=== PATIENT | female | born 1945 | race Caucasian/White ===

== ENCOUNTER 2018-04-28 20:45 | Inpatient (IN) ==
[2018-04-28] MEDS ORDERED: Famotidine PF Inj 20 MG/2 ML Vial IV.PUSH ONE (21:29)
[2018-04-28] MEDS ORDERED: Sod Chloride 0.9% Inj 1,000 ML IV.SIG ONE (21:29)
--- NOTE | 2018-04-28 21:29 | ED ---
HPI General Chief Complaint: Abdominal Pain Stated Complaint: n/v/d [id number] Time Seen by Provider: 04/28/18 21:13 Source: patient Mode of arrival: ambulatory Limitations: no limitations History of Present Illness HPI narrative: Patient had a Reclast infusion 10 days ago after that she developed severe eye inflammatory reaction and was put on Solu-Medrol steroids then she developed diarrhea she was on Flagyl p.o. 500 3 times daily for 7 days a C. difficile culture was sent and came back negative her doctor renewed this Flagyl today and she now developed severe abdominal pain diarrhea continues with lower abdominal cramping and now she is having vomiting and nausea as well denies black stool denies fever the request was for osteoporosis patient feels weak dehydrated crampy intermittent abdominal pain relieved by diarrhea temporarily feels weak and exhausted from excessive diarrhea p.o. they have been trying to replace her fluids daughter is been giving her Pedialyte p.o. which she is tolerating however today she developed vomiting. And her symptoms continue MD complaint: abdominal pain Onset (ago): week(s) (2) Pain Consistency: constant Location: diffuse, LLQ, RLQ and suprapubic Severity: severe Quality: cramping Relieving factors: bowel movement Exacerbating factors: nothing Context: other (clastic infusion for osteoporosis) Associated symptoms: nausea, vomiting and diarrhea Related Data Home Medications Medication Instructions Recorded Confirmed apixaban [Eliquis] 2.5 mg PO BID 04/28/18 04/28/18 enalapril maleate 10 mg PO BID 04/28/18 04/28/18 levothyroxine 25 mcg PO DAILY 04/28/18 04/28/18 metronidazole [Flagyl] 500 mg PO QID 04/28/18 04/28/18 rosuvastatin [Crestor] 20 mg PO DAILY 04/28/18 04/28/18 sotalol [Betapace] 80 mg PO Q12H 04/28/18 04/28/18 Allergies Allergy/AdvReac Type Severity Reaction Status Date / Time cephalexin [From Keflex] Allergy Rash Verified 04/28/18 21:02 codeine Allergy Abdominal Verified 04/28/18 21:02 Pain mannitol [From Reclast] Allergy Nausea/Vomi Verified 04/28/18 21:02 ting meperidine [From Demerol] Allergy Abdominal Verified 04/28/18 21:02 Pain water for injection,sterile Allergy Nausea/Vomi Verified 04/28/18 21:02 [From Reclast] ting zoledronic acid Allergy Nausea/Vomi Verified 04/28/18 21:02 [From Reclast] ting Review of Systems Except as stated in HPI: all other systems reviewed are negative [facility] Medical History Medical History H/O cardiac pacemaker (Acute) H/O: hypertension (Acute) H/O: hypothyroidism (Acute) Social History Social History Substance History: No History of Abuse Smoking Status: Never smoker How Often Do You Have a Drink Containing Alcohol: Never Recent Travel in [facility] within the Last 8 Weeks: No Recent Out of Country Travel within the Last 8 Weeks: No Immunization History Tetanus Immunization: <5 Years Hx Influenza Vaccine This Season: No Exam Narrative Exam Narrative: GENERAL: laying flat in stretcher appear listless but Awake AOX3 SKIN: Warm and dry. HEAD: Atraumatic. Normocephalic. EYES: Pupils equal and round. No scleral icterus. No injection or drainage. ENT: No nasal bleeding or discharge. Mucous membranes pink and moist. NECK: Trachea midline. No JVD. CARDIOVASCULAR: Regular rate and rhythm. RESPIRATORY: No accessory muscle use. Clear to auscultation. Breath sounds equal bilaterally. GASTROINTESTINAL: Abdomen diffuse tenderness mostly lower area colon area No splenic nor hepatic margins palpable. MUSCULOSKELETAL: Extremities without clubbing, cyanosis, or edema. No obvious deformities. NEUROLOGICAL: Awake and alert. No obvious cranial nerve deficits. Motor grossly within normal limits. Five out of 5 muscle strength in the arms and legs. Normal speech. PSYCHIATRIC: Appropriate mood and affect; insight and judgment normal. Course Initial Documented Vital Signs Temperature 98.5 F 04/28/18 20:51 Pulse Rate 80 04/28/18 20:51 Respiratory Rate 18 04/28/18 20:51 Blood Pressure 112/57 L 04/28/18 20:51 Pulse Oximetry 98 04/28/18 20:51 Last Documented Vital Signs Temperature 98.5 F 04/28/18 20:51 Pulse Rate 78 04/28/18 23:35 Respiratory Rate 16 04/28/18 23:35 Blood Pressure 129/60 04/28/18 23:35 Pulse Oximetry 97 04/28/18 23:35 Medical Decision Making MDM Narrative Medical decision making narrative: IV fluid zofran PEPCID IV NS and labs eval possible admit for intractable diarrhea will also sent c-diff assay for antigent. Labs have returned her sodium is 121 hyponatremic will need to admit her I gave her 1 L bolus of normal saline and now running her 250 an hour of normal saline to rehydrate her and admit her for sodium hyponatremia secondary to diarrhea Differential Diagnosis Differential Diagnosis: pt has abdo pain and diarrhea question of flagyl reaction Reclast reaction C-diff viral ulcerative colitis other Lab Data Result diagrams: 04/28/18 21:42 04/28/18 21:42 Lab Results 04/28/18 04/28/18 Range/Units 21:42 21:42 CBC w Diff Slide review pending WBC 16.6 H (4.0-11.0) th/mm3 RBC 4.17 (4.00-5.30) mil/mm3 Hgb 12.0 (11.6-15.3) gm/dL Hct 35.5 (35.0-46.0) % MCV 85.1 (80.0-100.0) fL MCH 28.8 (27.0-34.0) pg MCHC 33.8 (32.0-36.0) % RDW 13.6 (11.6-17.2) % Plt Count 354 (150-450) th/mm3 MPV 9.0 (7.0-11.0) fL Neut % (Auto) 83.8 H (16.0-70.0) % Lymph % (Auto) 4.2 L (9.0-44.0) % [place] % (Auto) 9.6 H (0.0-8.0) % Eos % (Auto) 2.1 (0.0-4.0) % Baso % (Auto) 0.3 (0.0-2.0) % Neut # (Auto) 14.0 H (1.8-7.7) th/mm3 Lymph # (Auto) 0.7 L (1.0-4.8) th/mm3 [place] # (Auto) 1.6 H (0.0-0.9) th/mm3 Eos # (Auto) 0.3 (0.0-0.4) th/mm3 Baso # (Auto) 0.0 (0.0-0.2) th/mm3 WBC Differential . Diff Scan Auto diff confirmed Differential Comment . Sodium 121 L* (136-145) meq/L Potassium 4.1 (3.5-5.1) meq/L Chloride 88 L (98-107) meq/L Carbon Dioxide 23.6 (21.0-32.0) meq/L Anion Gap 9 (5-15) meq/L BUN 8 (7-18) mg/dL Creatinine 0.63 (0.50-1.00) mg/dL Estimated GFR Greater than 89 (>89) mL/min Random Glucose 113 H (74-106) mg/dL Calcium 8.2 L (8.5-10.1) mg/dL Total Bilirubin 0.5 (0.2-1.0) mg/dL AST 18 (15-37) U/L ALT 17 (10-53) U/L Alkaline Phosphatase 96 (45-117) U/L Total Protein 6.8 (6.4-8.2) g/dL Albumin 3.0 L (3.4-5.0) g/dL Lipase 545 H (73-393) U/L Discharge Plan Discharge Disposition Patient Disposition: 30 Still Patient Discharge Details Diagnosis: Acute hyponatremia Physicians Team ED Provider: Ruperto Fofana Primary Care Provider: Tulio De La Paz Attending Provider: Tulio De La Paz Status ED Status: Admitted Observation Patient
[2018-04-28 22:14] LABS: Baso % (Auto) 0.3 % (0.0-2.0); Eos # (Auto) 0.3 th/mm3 (0.0-0.4); Eos % (Auto) 2.1 % (0.0-4.0); Hematocrit 35.5 % (35.0-46.0); Lymph # (Auto) 0.7 th/mm3 (1.0-4.8); Lymph % (Auto) 4.2 % (9.0-44.0); Mean Corpuscular HGB Conc 33.8 % (32.0-36.0); Mean Corpuscular Hemoglobin 28.8 pg (27.0-34.0); Mean Corpuscular Volume 85.1 fL (80.0-100.0); Mono # (Auto) 1.6 th/mm3 (0.0-0.9); Mono % (Auto) 9.6 % (0.0-8.0); Neut % (Auto) 83.8 % (16.0-70.0); Platelet Count 354 th/mm3 (150-450); Red Blood Count 4.17 mil/mm3 (4.00-5.30); Red Cell Distribution Width 13.6 % (11.6-17.2); White Blood Count 16.6 th/mm3 (4.0-11.0)
[2018-04-28 22:21] LABS: Alanine Aminotransferase 17 U/L (10-53); Alkaline Phosphatase 96 U/L (45-117); Anion Gap 9 meq/L (5-15); Aspartate Aminotransferase 18 U/L (15-37); Blood Urea Nitrogen 8 mg/dL (7-18); Calcium 8.2 mg/dL (8.5-10.1); Carbon Dioxide 23.6 meq/L (21.0-32.0); Chloride 88 meq/L (98-107); Glomerular Filtration Rate Greater Than 89 mL/min (>89); Glucose,Random 113 mg/dL (74-106); Lipase 545 U/L (73-393); Potassium 4.1 meq/L (3.5-5.1); Total Protein 6.8 g/dL (6.4-8.2)
[2018-04-28 22:23] LABS: Sodium 121 meq/L (136-145)
[2018-04-28] MEDS: Sod Chloride 0.9% Inj 1,000 ML IV.CONT SCH (22:40)
[2018-04-29 00:38] LABS: Bilirubin,Urine Negative (Negative); Clarity,Urine Clear (Clear); Color,Urine Yellow (Yellw/Straw); Glucose,Urine (UA) Negative (Negative); Leukocyte Esterase,Urine Trace (Negative); Nitrite,Urine Negative (Negative); Specific Gravity,Urine Less/Equal 1.005 (1.002-1.035); Urobilinogen,Urine 0.2 mg/dL (Less than 2)
[2018-04-29 00:48] LABS: RBC,Urine 0-3 /hpf (0-3); Squamous Epithelial Cell,Urine 0-5 /hpf (0-5)
[2018-04-29] MEDS: Acetaminophen 325 MG Tablet PO PRN ×2 (05:21→08:58)
[2018-04-29] MEDS: Sod Chloride 0.9% Inj 1,000 ML IV.CONT SCH ×3 (06:05→19:27)
[2018-04-29] MEDS ORDERED: Sod Chloride 0.9% Inj 1,000 ML IV.CONT SCH (06:30)
--- NOTE | 2018-04-29 06:34 | XR ---
EXAM DATE: 04/29/2018 6:30 AM EDT AGE/SEX: 73 years / Female INDICATIONS: . Cough for 1 week CLINICAL DATA: This is the patient's initial encounter. Patient reports that signs and symptoms have been present for 1 week and indicates a pain score of 0/10. MEDICAL/SURGICAL HISTORY: None. CABG. Mitral valve repair. Pacemaker. COMPARISON: POI, CT CHEST W/O CONTRAST, 10/25/2017. . FINDINGS: No significant focal pleural or parenchymal abnormality. Dual-lead pacemaker in place with postsurgic al features of prior median sternotomy and aortic valve replacement. Cardiac silhouette is in the upp er limits of normal for size. Bony thorax is intact. CONCLUSION: 1. No acute cardiopulmonary disease. Electronically signed by: Dallin Jason MD 04/29/2018 6:33 AM EDT
--- NOTE | 2018-04-29 07:09 | CT ---
EXAM DATE: 04/29/2018 6:59 AM EDT AGE/SEX: 73 years / Female INDICATIONS: Hyponatremia, intractable diarrhea, abdominal pain. CLINICAL DATA: This is the patient's initial encounter. Patient reports that signs and symptoms have been present for 1 day and indicates a pain score of 0/10. MEDICAL/SURGICAL HISTORY: . Pacemaker. Appendectomy. CABG. Tonsillectomy, adenoidectomy, hys terectomy. ORAL CONTRAST: No oral contrast ingested. RADIATION DOSE: 6.40 CTDI (mGy) COMPARISON: No prior exams available for comparison. TECHNIQUE: Multiple contiguous axial images were obtained through the abdomen and pelvis following b olus infusion of 80 ml Omnipaque 350 (iohexol) nonionic water-soluble contrast as a single exam dos e. No oral contrast ingested. Using automated exposure control and adjustment of the mA and/or kV ac cording to patient size, radiation dose was kept as low as reasonably achievable to obtain optimal di agnostic quality images. DICOM format image data is available electronically for review and comparis on. FINDINGS: Abdomen CT: The liver, spleen, pancreas, kidneys, adrenals are unremarkable. There is no evidence for any appreci able pathological adenopathy, free fluid, or bowel obstruction. There are a couple of tiny subcentim eter retroperitoneal lymph nodes most likely benign with scattered shotty mesenteric lymph nodes also most likely benign the largest one measures almost 1 cm in right lower quadrant. Pelvic CT: There is no evidence for mass, abscess formation, or any significant adenopathy within the pelvis. Th ere is a single gas bubble inside the bladder of uncertain etiology. CONCLUSION: Gas bubble inside the bladder may be iatrogenic and of uncertain etiology, otherwise unre markable. Electronically signed by: Ezekiel Vallejo MD 04/29/2018 7:07 AM EDT
[2018-04-29 07:57] LABS: Baso % (Auto) 0.1 % (0.0-2.0); Eos # (Auto) 0.3 th/mm3 (0.0-0.4); Eos % (Auto) 1.6 % (0.0-4.0); Hematocrit 32.5 % (35.0-46.0); Hemoglobin 10.6 gm/dL (11.6-15.3); Lymph # (Auto) 0.7 th/mm3 (1.0-4.8); Lymph % (Auto) 4.3 % (9.0-44.0); Mean Corpuscular HGB Conc 32.5 % (32.0-36.0); Mean Corpuscular Hemoglobin 28.6 pg (27.0-34.0); Mean Corpuscular Volume 87.8 fL (80.0-100.0); Mean Platelet Volume 9.1 fL (7.0-11.0); Mono # (Auto) 1.3 th/mm3 (0.0-0.9); Mono % (Auto) 8.5 % (0.0-8.0); Neut # (Auto) 13.6 th/mm3 (1.8-7.7); Neut % (Auto) 85.5 % (16.0-70.0); Platelet Count 313 th/mm3 (150-450); Red Cell Distribution Width 13.5 % (11.6-17.2); White Blood Count 15.9 th/mm3 (4.0-11.0)
[2018-04-29 08:22] LABS: Anion Gap 11 meq/L (5-15); Blood Urea Nitrogen 6 mg/dL (7-18); Calcium 7.1 mg/dL (8.5-10.1); Carbon Dioxide 19.7 meq/L (21.0-32.0); Chloride 97 meq/L (98-107); Glomerular Filtration Rate Greater Than 89 mL/min (>89); Glucose,Random 94 mg/dL (74-106); Lipase 462 U/L (73-393); Potassium 3.8 meq/L (3.5-5.1); Sodium 128 meq/L (136-145)
--- NOTE | 2018-04-29 08:29 | P.HP ---
History of Present Illness Primary Care Physician: Tulio De La Paz MD Chief Complaint: Abdominal pain, persistent diarrhea, weakness History of Present Illness: HPI: This is a 73-year-old white female who has had diarrhea going on for about 8-10 days now. I had seen her a little over a week ago for diarrhea and put her on Flagyl. A stool specimen for C. difficile toxin was negative as an outpatient. She stated that her diarrhea and discomfort had improved some but then in the last few days her symptoms have become worse and she has become weaker. She has had some occasional chills. She states she has had at times some dysuria. She also states she has had an occasional cough. She denies any rectal bleeding. She still getting some intermittent lower abdominal cramping pain. Her stools have generally been loose and watery and she has not been eating much. She has been having in the last couple days the 3-5 loose watery stools per day. In the ER she had a sodium level of 121 last night. She had a slightly elevated lipase level as well. She does mention that several years ago she had some form of colitis. She does have a brother who has Crohn's disease. Medical history: Hyperlipidemia Paroxysmal atrial fibrillation on a low-dose of Eliquis Mild bilateral carotid artery plaque on carotid ultrasound 02/15/2018 History of hypertension but was recently taken off of blood pressure medication. Obstructive sleep apnea Osteoporosis "Coronary artery disease but no prior history of heart attack Recent placement of pacemaker Mild pulmonary hypertension on prior 2D echocardiogram on 02/24/2016 with pulmonary artery pressure of 46 mmHg Fatty liver Prior mitral valve repair Questionable history of TIA in the past Hypothyroidism Surgical history: Tonsillectomy and adenoidectomy Appendectomy Mitral valve repair ORIF for intertrochanteric fracture of the left hip on 07/19/2017 Normal colonoscopy on 01/22/2004 and 08/19/2011 Prior treatment of nondisplaced fracture of the right ulna Allergies: Codeine (nausea vomiting), Demerol causes nausea and vomiting, Keflex caused a rash Medications: Eliquis 2.5 mg twice a day Levothyroxine 25 mcg daily Rosuvastatin 20 mg daily Sotalol 80 mg she is only been taking half a pill twice a day She was recently taken off of amlodipine and enalapril after her pacemaker placement because her blood pressure was low Family history: Her father of at age 67 in a motor vehicle accident Brother--Crohn's disease Mother at age 84 of leukemia Social history: Never smoked. . Occasional social drink. 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 - Diagnosis (1) Elevated lipase (2) Acute hyponatremia (3) Acute diarrhea (4) Hyperlipidemia (5) Coronary artery disease (6) Paroxysmal atrial fibrillation (7) Carotid artery plaque (8) Pacemaker (9) History of mitral valve repair (10) Osteoporosis (11) Obstructive sleep apnea (12) Pulmonary hypertension (13) Hypothyroidism Inpatient Certification: I certify that the inpatient services were ordered in accordance with Medicare regulations governing the order. This includes certification that hospital inpatient services are reasonable and necessary and in the case of services not specified as inpatient-only under 42 CFR 419.22(n), that they are appropriately provided as inpatient services in accordance to with the 2-midnight benchmark under 43 CFR 412.3(e) Estimated Total Length of Stay (Days): 2 Plans for Post Hospital Care: Home Review of Systems Review of systems: General: She has had generalized fatigue as well as occasional chills and decreased appetite HEENT: She has had just slight sore throat slight runny nose, no visual complaints,no hearing complaints Cardiovascular: No chest pain, no shortness of breath, no palpitations Pulmonary: Denies any shortness of breath. She has a slight nonproductive cough over the last several days. Denies wheezing. GI: As mentioned in history of present illness : She has had slight dysuria but no hematuria or urgency Musculoskeletal: Denies any significant joint or back pain at this time Skin: No complaints of a rash or itching Psychiatry: No significant depression or anxiety Neuro: Denies any confusion, memory loss, focal weakness, numbness or tingling in her extremities PMFSH - History History Provided By: Patient - Medical History Medical History: Medical History (Last Updated 04/29/18 @ 04:32 by Tulio De La Paz MD) Hx of cardiac pacemaker Normal colonoscopy - Surgical History Surgical History: Surgical History (Last Updated 04/29/18 @ 04:30 by Tulio De La Paz MD) History of appendectomy History of tonsillectomy and adenoidectomy History of total abdominal hysterectomy Status post-operative repair of closed fracture of left hip - Family History Family History: Family History (Last Updated 04/29/18 @ 04:39 by Tulio De La Paz MD) Mother Leukemia Other Heart disease Hypertension - Tobacco History Second Hand Smoke Exposure: No Tobacco Use In Past 30 Days: No Smoking Status: Never smoker - Alcohol History How Often Do You Have a Drink Containing Alcohol: Monthly or less - Substance Use History Substance History: No History of Abuse - Travel History Recent Travel in the [place] Within the Last 8 Weeks: No Recent Travel Out of the Country Within the Last 8 Weeks: No - Immunization History Tetanus Immunization: <5 Years Hx Influenza Vaccine This Season: No Medications and Allergies Active Medications: Active Medications Acetaminophen (Tylenol) 650 mg PO Q4H PRN PRN Reason: Acute Pain Last Admin: 04/29/18 05:21 Dose: 650 mg Apixaban (Eliquis) 2.5 mg PO BID BALA Atorvastatin Calcium (Lipitor) 40 mg PO DAILY [facility] Levofloxacin/Dextrose (Levaquin 500 Mg Premix Inj) 500 mg in 100 mls @ 100 mls/ hr IV.SIG Q24H BALA Metronidazole/Sodium Chloride (Flagyl 500 Mg Inj) 100 mls @ 100 mls/hr IV.SIG Q8H BALA Sodium Chloride (Ns Inj) 1,000 mls @ 100 mls/hr IV.CONT .Q10H BALA Levothyroxine Sodium (Synthroid) 25 mcg PO DAILY@0600 [facility] Last Admin: 04/29/18 05:21 Dose: 25 mcg Miscellaneous (Pill Splitter) 1 each OTHER UNSCH PRN PRN Reason: PILL SPLITTER Morphine Sulfate (Morphine Inj) 2 mg IV.PUSH Q3H PRN PRN Reason: PAIN 1-10 AND/OR FEVER >101F Sotalol HCl (Betapace) 40 mg PO Q12HR [facility] Allergies Allergy/AdvReac Type Severity Reaction Status Date / Time cephalexin [From Keflex] Allergy Rash Verified 04/28/18 21:02 codeine Allergy Abdominal Verified 04/28/18 21:02 Pain mannitol [From Reclast] Allergy Nausea/Vomi Verified 04/28/18 21:02 ting meperidine [From Demerol] Allergy Abdominal Verified 04/28/18 21:02 Pain water for injection,sterile Allergy Nausea/Vomi Verified 04/28/18 21:02 [From Reclast] ting zoledronic acid Allergy Nausea/Vomi Verified 04/28/18 21:02 [From Reclast] ting Home Medications Medication Instructions Recorded Confirmed Type apixaban [Eliquis] 2.5 mg PO BID 04/28/18 04/28/18 History levothyroxine 25 mcg PO DAILY 04/28/18 04/28/18 History metronidazole [Flagyl] 500 mg PO QID 04/28/18 04/28/18 History rosuvastatin [Crestor] 20 mg PO DAILY 04/28/18 04/28/18 History sotalol [Betapace] 40 mg PO Q12H 04/28/18 04/29/18 History Exam Vital signs: Vital Signs 04/28/18 20:51 04/28/18 21:08 04/28/18 23:35 Temperature 98.5 F Pulse Rate 80 80 78 Respiratory Rate 18 16 16 Blood Pressure 112/57 L 131/60 129/60 Pulse Oximetry 98 97 97 04/29/18 01:28 04/29/18 04:00 04/29/18 05:21 Temperature 100.5 F H Pulse Rate 82 74 Respiratory Rate 20 12 Blood Pressure 119/58 L Pulse Oximetry 94 L Intake & Output 04/28/18 04/29/18 04/29/18 18:59 06:59 18:59 Intake Total 1000 / 1000 Output Total 0 / 0 Balance 1000 / 1000 Weight 59.6 kg Intake: IV 1000 / 1000 NS Inj 1,000 ML @ 250 mls/hr IV 1000 / 1000 .CONT .Q4H [facility] Rx#:[id number] Output: Urine 0 / 0 Other: Date of Last Bowel Movement 04/29/18 Weight On Admission 59.6 kg Narrative: This is a pleasant [] in no distress. HEENT: Pupils equal, EOMs intact, sclera nonicteric, mouth without lesions, TMs intact, nose without lesions Neck: No JVD, neck is supple, no carotid bruit Heart: Regular rate and rhythm without murmurs or gallops Lungs: Clear to auscultation Abdomen: Soft, nontender, no masses, no organomegaly Extremities: No edema, pulses palpated, no calf tenderness Skin: Without lesions or rash Neuro: Alert, oriented, normal motor exam, sensation intact, cranial nerves intact Results - Labs CBC & Chem 7: 04/28/18 21:42 04/28/18 21:42 Labs: Laboratory Results - last 24 hr 04/28/18 04/28/18 04/29/18 21:42 21:42 00:30 CBC w Diff Slide review pending WBC 16.6 H RBC 4.17 Hgb 12.0 Hct 35.5 MCV 85.1 MCH 28.8 MCHC 33.8 RDW 13.6 Plt Count 354 MPV 9.0 Neut % (Auto) 83.8 H Lymph % (Auto) 4.2 L [place] % (Auto) 9.6 H Eos % (Auto) 2.1 Baso % (Auto) 0.3 Neut # (Auto) 14.0 H Lymph # (Auto) 0.7 L [place] # (Auto) 1.6 H Eos # (Auto) 0.3 Baso # (Auto) 0.0 WBC Differential . Diff Scan Auto diff confirmed Differential Comment . Sodium 121 L* Potassium 4.1 Chloride 88 L Carbon Dioxide 23.6 Anion Gap 9 BUN 8 Creatinine 0.63 Estimated GFR Greater than 89 Random Glucose 113 H Calcium 8.2 L Total Bilirubin 0.5 AST 18 ALT 17 Alkaline Phosphatase 96 Total Protein 6.8 Albumin 3.0 L Lipase 545 H Urine Color Yellow Urine Clarity Clear Urine pH 6.0 Ur Specific [place] Less/equal 1.005 Urine Protein Negative Urine Glucose (UA) Negative Urine Ketones Trace H Urine Occult Blood Negative Urine Nitrate Negative Urine Bilirubin Negative Urine Urobilinogen 0.2 Ur Leukocyte Esterase Trace H Urine RBC 0-3 Urine WBC 6-8 H Urine WBC Clumps Occasional H Ur Squamous Epith Cells 0-5 Ur Renal Epithelial Cell 1-5 H - Imaging Impressions Abdomen/Pelvis CT 04/29/18 00:00 CONCLUSION: Gas bubble inside the bladder may be iatrogenic and of uncertain etiology, otherwise unremarkable. Chest X-Ray 04/29/18 00:00 CONCLUSION: 1. No acute cardiopulmonary disease. Caprini VTE Risk Assessment Caprini VTE Risk Assessment: Moderate/High Risk (score >= 2) Caprini Risk Assessment Model: Point Value = 1 Point Value = 2 Point Value = 3 Point Value = 5 Age 41-60 Minor surgery BMI > 25 kg/m2 Swollen legs Varicose veins or History of unexplained or recurrent spontaneous Oral contraceptives or hormone replacement Sepsis (< 1 month) Serious lung disease, including pneumonia (< 1 month) Abnormal pulmonary function Acute myocardial infarction Congestive heart failure (< 1 month) History of inflammatory bowel disease Medical patient at bed rest Age 61-74 Arthroscopic surgery Major open surgery (> 45 min) Laparoscopic surgery (> 45 min) Malignancy Confined to bed (> 72 hours) Immobilizing plaster cast Central venous access Age >= 75 History of VTE Family history of VTE Factor V Leiden Prothrombin [id number] Lupus anticoagulant Anticardiolipin antibodies Elevated serum homocysteine Heparin-induced thrombocytopenia Other congenital or acquired thrombophilia Stroke (< 1 month) Elective arthroplasty Hip, pelvis, or leg fracture Acute spinal cord injury (< 1 month) Prophylaxis Regimen: Total Risk Factor Score Risk Level Prophylaxis Regimen 0-1 Low Early ambulation 2 Moderate Order ONE of the following: *Sequential Compression Device (SCD) *Heparin 5000 units SQ BID 3-4 Higher Order ONE of the following medications: *Heparin 5000 units SQ TID *Enoxaparin/Lovenox 40 mg SQ daily (WT < 150 kg, CrCl > 30 mL/min) *Enoxaparin/Lovenox 30 mg SQ daily (WT < 150 kg, CrCl > 10-29 mL/min) *Enoxaparin/Lovenox 30 mg SQ BID (WT < 150 kg, CrCl > 30 mL/min) AND/OR *Sequential Compression Device (SCD) 5 or more Highest Order ONE of the following medications: *Heparin 5000 units SQ TID (Preferred with Epidurals) *Enoxaparin/Lovenox 40 mg SQ daily (WT < 150 kg, CrCl > 30 mL/min) *Enoxaparin/Lovenox 30 mg SQ daily (WT < 150 kg, CrCl > 10-29 mL/min) *Enoxaparin/Lovenox 30 mg SQ BID (WT < 150 kg, CrCl > 30 mL/min) AND *Sequential Compression Device (SCD) Assessment and Plan - Assessment (1) Elevated lipase Code(s): R74.8 - Abnormal levels of other serum enzymes Status: Acute (2) Acute hyponatremia Code(s): E87.1 - Hypo-osmolality and hyponatremia Status: Acute (3) Acute diarrhea Code(s): R19.7 - Diarrhea, unspecified Status: Acute (4) Hyperlipidemia Code(s): E78.5 - Hyperlipidemia, unspecified Status: Chronic (5) Coronary artery disease Code(s): I25.10 - Atherosclerotic heart disease of hopi coronary artery without angina pectoris Status: Chronic (6) Paroxysmal atrial fibrillation Code(s): I48.0 - Paroxysmal atrial fibrillation Status: Chronic (7) Carotid artery plaque Code(s): I65.29 - Occlusion and stenosis of unspecified carotid artery Status : Chronic (8) Pacemaker Code(s): Z95.0 - Presence of cardiac pacemaker Status: Chronic (9) History of mitral valve repair Code(s): Z98.890 - Other specified postprocedural states Status: Chronic (10) Osteoporosis Code(s): M81.0 - Age-related osteoporosis without current pathological fracture Status: Chronic (11) Obstructive sleep apnea Code(s): G47.33 - Obstructive sleep apnea (adult) (pediatric) Status: Chronic (12) Pulmonary hypertension Code(s): I27.20 - Pulmonary hypertension, unspecified Status: Chronic (13) Hypothyroidism Code(s): E03.9 - Hypothyroidism, unspecified Status: Chronic - Plan Plan: I will consult gastroenterology for her persistent abdominal pain and ongoing diarrhea to rule out underlying colitis. She will be maintained on her Eliquis for her for DVT prophylaxis and for her paroxysmal atrial fibrillation. I will put her on Levaquin and Flagyl IV for now. Urine and blood cultures have been ordered as well. She will be given Tylenol as needed for any fever. IV normal saline is being given for hyponatremia.
[2018-04-29 08:40] LABS: Total Protein 5.8 g/dL (6.4-8.2)
[2018-04-29] MEDS: Levofloxacin 500 mg Premix Inj 500 MG/100 ML PIGGYBACK IV.SIG SCH (09:32)
--- NOTE | 2018-04-29 13:45 | MB ---
cc: Michael Santos MD DATE: 04/29/2018 REASON FOR REFERRAL: Abdominal pain, diarrhea, and general weakness. Thank you for the consultation. HISTORY OF PRESENT ILLNESS: This is a 73-year-old lady who has been in good health until about 10 days ago when she started having significant diarrhea 3-5, sometimes even more. She was having watery diarrhea with some mucus, no blood. Further in her history, patient has some cramping and lower abdominal pain, general fatigue and weakness, apparently she had an infusion for osteoporosis about 6 weeks ago when she started having significant issues with a swollen eye that came to the hospital for it and a rash, then she thinks this is related to it. She was given antibiotic because of the rash about 3 weeks ago. The patient has a history of ulcerative colitis that was diagnosed many years ago, but she was in remission. Last colonoscopy was 6 years ago, which was unremarkable to her recollection and she is not taking anything currently for it. She has a brother who had Crohn's disease. The patient is slightly doing better. She only had 2 bowel movements that were loose since she was admitted to the hospital and less abdominal pain. PAST MEDICAL HISTORY: Significant for sleep apnea, osteoporosis, carotid artery blockage, hyperlipidemia, atrial fibrillation, pacemaker placement, pulmonary hypertension, fatty liver, mitral valve repair, TIA, hypothyroidism. ALLERGIES: 1. CODEINE. 2. DEMEROL. 3. KEFLEX. MEDICATIONS: Reviewed in the chart including Eliquis. FAMILY HISTORY: Significant for Crohn's disease and leukemia. PAST SURGICAL HISTORY: Significant for appendectomy, mitral valve repair, tonsillectomy, hip fracture, normal colonoscopies at least in 2003 and 2010. SOCIAL HISTORY: Negative for tobacco. Rare alcohol. No drugs. REVIEW OF SYSTEMS: All 12-point negative except for HPI. PHYSICAL EXAMINATION: GENERAL: Alert, oriented, in no acute distress. VITAL SIGNS: Stable. HEENT: Pupils round, reactive to light. NECK: Supple. CHEST: Clear to auscultation and percussion. CARDIAC: Regular rate and rhythm. No murmur or gallops. ABDOMEN: Soft and nondistended. Minimal discomfort at this time. No hepatosplenomegaly, positive bowel sounds. EXTREMITIES: No edema, clubbing or cyanosis. NEUROLOGIC: Intact. Nonfocal abnormality. No weakness. PSYCHOLOGIC: Appropriate. SKIN: Clear. LABORATORY DATA: White count 15.9; hemoglobin 10.6, down from 12, most likely related to rehydration; platelets 313. Sodium 128, up from 121; BUN 6, creatinine 0.49, calcium 7.1, total bilirubin 0.5. AST, ALT normal. Lipase 462. Albumin 3.0. Clostridium difficile was negative. IMAGING STUDIES: Abdominal CT scan, no evidence of mass, a gas bubble inside the bladder, otherwise normal. ASSESSMENT AND PLAN: 1. A 73-year-old lady with abdominal pain and diarrhea. The patient also has an elevated lipase, most likely pancreatitis, questionable etiology could be medicine induced or it could be given biliary sludge or other etiology can be less likely such as autoimmune pancreatitis. 2. Diarrhea could be related to the pancreatitis or it could be related to infectious process. Clostridium difficile is pending. The diarrhea is resolving now. The patient at some point will need colonoscopy. This can be done on Tuesday or Tuesday or as an outpatient, depends on our findings. 3. Pancreatitis, questionable etiology. We will monitor her lab. 4. We will check an ultrasound to make sure there are no gallstones. 5. IgG4 to rule out autoimmune pancreatitis. Further plan depends on the hospital course. MD RYLEE Medel/LOVE , 01:22 PM , 01:34 PM
[2018-04-29] MEDS ORDERED: Acetaminophen 325 MG Tablet PO ONE (17:30)
--- NOTE | 2018-04-29 18:47 | US ---
EXAM DATE: 04/29/2018 6:34 PM EDT AGE/SEX: 73 years / Female INDICATIONS: Abdominal pain. CLINICAL DATA: This is the patient's initial encounter. Patient reports that signs and symptoms have been present for 2 days and indicates a pain score of 5/10. MEDICAL/SURGICAL HISTORY: . Left hip fracture. Pacemaker. Appendectomy. Tonsillectomy. [place] noscopy. Adenoidectomy. Hysterectomy. Fracture repair, left hip. COMPARISON: No prior exams available for comparison. MEASUREMENTS: Liver:__ 14.8 cm. Common Bile Duct:___ 3mm. Right Kidney:___11.7 x 4.9 x 4.4 cm. Left Kidney:___10.7 x 4.1 x 5.0 cm. Spleen:___10.8 cm. FINDINGS: Liver: Normal echotexture without focal lesion or ductal dilatation. Portal Vein: Hepatopedal flow seen in portal vein. Common Duct: No intraluminal mass or stone visualized. Gallbladder: Demonstrates no wall thickening or pericholecystic fluid. No stones visualized. Pancreas: The visualized portions are within normal limits Right Kidney: No mass or hydronephrosis. Left Kidney: No mass or hydronephrosis. Ascites: None Pleural Effusion: None Spleen: No focal lesion. Aorta: Non aneurysmal. IVC: Within normal limits Other: None. CONCLUSION: 1. Unremarkable study. Electronically signed by: Ezekiel Vallejo MD 04/29/2018 6:46 PM EDT
[2018-04-29] MEDS: Calcium/Vitamin D 250/125 MG Tablet PO SCH (20:57)
[2018-04-29] MEDS: Morphine Sulfate Inj 2 MG/ML Vial IV.PUSH PRN (22:39)
[2018-04-30] MEDS: Sod Chloride 0.9% Inj 1,000 ML IV.CONT SCH (03:13)
[2018-04-30] MEDS: Acetaminophen 325 MG Tablet PO PRN ×2 (03:14→18:41)
[2018-04-30] MEDS: Morphine Sulfate Inj 2 MG/ML Vial IV.PUSH PRN ×5 (03:53→22:05)
[2018-04-30] MEDS: Levofloxacin 500 mg Premix Inj 500 MG/100 ML PIGGYBACK IV.SIG SCH (05:09)
[2018-04-30 06:21] LABS: Baso % (Auto) 0.2 % (0.0-2.0); Eos # (Auto) 0.1 th/mm3 (0.0-0.4); Eos % (Auto) 0.3 % (0.0-4.0); Hematocrit 28.8 % (35.0-46.0); Hemoglobin 9.7 gm/dL (11.6-15.3); Lymph # (Auto) 0.6 th/mm3 (1.0-4.8); Lymph % (Auto) 3.4 % (9.0-44.0); Mean Corpuscular HGB Conc 33.8 % (32.0-36.0); Mean Corpuscular Hemoglobin 29.3 pg (27.0-34.0); Mean Corpuscular Volume 86.5 fL (80.0-100.0); Mono # (Auto) 1.7 th/mm3 (0.0-0.9); Mono % (Auto) 9.8 % (0.0-8.0); Neut # (Auto) 15.1 th/mm3 (1.8-7.7); Neut % (Auto) 86.3 % (16.0-70.0); Platelet Count 237 th/mm3 (150-450); Red Blood Count 3.33 mil/mm3 (4.00-5.30); Red Cell Distribution Width 13.7 % (11.6-17.2); White Blood Count 17.5 th/mm3 (4.0-11.0)
[2018-04-30 06:31] LABS: Chloride 98 meq/L (98-107); Potassium 3.1 meq/L (3.5-5.1); Sodium 127 meq/L (136-145)
[2018-04-30 06:44] LABS: Anion Gap 9 meq/L (5-15); Blood Urea Nitrogen 7 mg/dL (7-18); Calcium 6.2 mg/dL (8.5-10.1); Carbon Dioxide 20.5 meq/L (21.0-32.0); Glomerular Filtration Rate Greater Than 89 mL/min (>89); Glucose,Random 121 mg/dL (74-106); Lipase 140 U/L (73-393)
[2018-04-30 06:56] LABS: Total Protein 5.2 g/dL (6.4-8.2)
--- NOTE | 2018-04-30 07:46 | P.PN ---
Subjective Interval history: Patient states her diarrhea is improved with some more soft formed stools. She still having some abdominal discomfort at times. She had some epigastric pain that radiated into her back last evening. She is still having some intermittent fevers as well. Her C. difficile toxin was negative. Physical Exam Vital signs: Vital Signs 04/29/18 08:00 04/29/18 08:47 04/29/18 12:00 Temperature 97.6 F 98.3 F Pulse Rate 102 H 78 74 Respiratory Rate 16 20 Blood Pressure 133/69 98/49 L Pulse Oximetry 96 94 L 04/29/18 16:00 04/29/18 20:00 04/29/18 22:41 Temperature 99.7 F H 99.2 F Pulse Rate 75 75 Respiratory Rate 18 20 22 Blood Pressure 104/55 L 106/55 L Pulse Oximetry 95 95 04/30/18 00:00 04/30/18 03:48 04/30/18 04:17 Temperature 99.1 F 101.8 F H Pulse Rate 75 75 Respiratory Rate 18 16 18 Blood Pressure 137/62 127/64 Pulse Oximetry 94 L 94 L Intake & Output 04/29/18 04/30/18 04/30/18 18:59 06:59 18:59 Intake Total 1780 / 1780 1540 / 1540 Output Total 450 / 450 500 / 500 Balance 1330 / 1330 1040 / 1040 Weight 63.2 kg Intake: IV 1300 / 1300 1300 / 1300 NS Inj 1,000 ML @ 100 mls/hr IV 1000 / 1000 1000 / 1000 .CONT .Q10H [facility] Rx#:[id number] Levaquin 500 mg Premix Inj 500 100 / 100 100 / 100 mg In 100 ml @ 100 mls/hr IV. SIG Q24H [facility] Rx#:[id number] Flagyl 500 MG Inj 100 ML @ 100 200 / 200 200 / 200 mls/hr IV.SIG Q8H [facility] Rx#: [id number] Oral 480 / 480 240 / 240 Output: Urine 450 / 450 500 / 500 Other: Date of Last Bowel Movement 04/29/18 04/30/18 # Bowel Movements 1 Narrative: Exam: This is a pleasant [] in no distress. HEENT: Pupils equal, EOMs intact, mouth without lesions Neck: No JVD, neck is supple Heart: Regular rate and rhythm without murmurs or gallops Lungs: Clear to auscultation Abdomen: Soft, no masses, mild tenderness in epigastric region and lower abdomen Extremities: No edema, pulses palpated, no calf tenderness Neuro: Alert, oriented, normal motor exam, sensation intact Results - Labs CBC & Chem 7: 04/30/18 06:02 04/30/18 06:02 Laboratory Results - last 24 hr 04/29/18 04/29/18 04/29/18 06:15 06:15 11:30 CBC w Diff Auto diff final WBC 15.9 H RBC 3.70 L Hgb 10.6 L Hct 32.5 L MCV 87.8 MCH 28.6 MCHC 32.5 RDW 13.5 Plt Count 313 MPV 9.1 Neut % (Auto) 85.5 H Lymph % (Auto) 4.3 L [place] % (Auto) 8.5 H Eos % (Auto) 1.6 Baso % (Auto) 0.1 Neut # (Auto) 13.6 H Lymph # (Auto) 0.7 L [place] # (Auto) 1.3 H Eos # (Auto) 0.3 Baso # (Auto) 0.0 WBC Differential . Differential Comment . Sodium 128 L Potassium 3.8 Chloride 97 L D Carbon Dioxide 19.7 L Anion Gap 11 BUN 6 L Creatinine 0.49 L Estimated GFR Greater than 89 Random Glucose 94 Calcium 7.1 L* D Prot Corrected Calcium 7.8 L Total Protein 5.8 L D Lipase 462 H Stl C.difficile Tox PCR Negative St C. diff Tox Epid 027 Negative 04/30/18 04/30/18 06:02 06:02 CBC w Diff Auto diff final WBC 17.5 H RBC 3.33 L Hgb 9.7 L Hct 28.8 L MCV 86.5 MCH 29.3 MCHC 33.8 RDW 13.7 Plt Count 237 MPV 8.0 Neut % (Auto) 86.3 H Lymph % (Auto) 3.4 L [place] % (Auto) 9.8 H Eos % (Auto) 0.3 Baso % (Auto) 0.2 Neut # (Auto) 15.1 H Lymph # (Auto) 0.6 L [place] # (Auto) 1.7 H Eos # (Auto) 0.1 Baso # (Auto) 0.0 WBC Differential . Differential Comment . Sodium 127 L Potassium 3.1 L Chloride 98 Carbon Dioxide 20.5 L Anion Gap 9 BUN 7 Creatinine 0.52 Estimated GFR Greater than 89 Random Glucose 121 H Calcium 6.2 L* D Prot Corrected Calcium 7.1 L* Total Protein 5.2 L D Lipase 140 Stl C.difficile Tox PCR St C. diff Tox Epid 027 - Imaging Impressions Abdomen Ultrasound 04/29/18 00:00 CONCLUSION: 1. Unremarkable study. Impressions Abdomen Ultrasound 04/29/18 00:00 CONCLUSION: 1. Unremarkable study. Abdomen/Pelvis CT 04/29/18 00:00 CONCLUSION: Gas bubble inside the bladder may be iatrogenic and of uncertain etiology, otherwise unremarkable. Chest X-Ray 04/29/18 00:00 CONCLUSION: 1. No acute cardiopulmonary disease. Assessment and Plan - Assessment (1) Fever Code(s): R50.9 - Fever, unspecified Status: Acute (2) Elevated lipase Code(s): R74.8 - Abnormal levels of other serum enzymes Status: Acute Plan: Her lipase level is now normal. She likely had some minimal pancreatitis. (3) Acute hyponatremia Code(s): E87.1 - Hypo-osmolality and hyponatremia Status: Acute (4) Acute diarrhea Code(s): R19.7 - Diarrhea, unspecified Status: Acute (5) Hyperlipidemia Code(s): E78.5 - Hyperlipidemia, unspecified Status: Chronic (6) Coronary artery disease Code(s): I25.10 - Atherosclerotic heart disease of [place] coronary artery without angina pectoris Status: Chronic (7) Paroxysmal atrial fibrillation Code(s): I48.0 - Paroxysmal atrial fibrillation Status: Chronic (8) Carotid artery plaque Code(s): I65.29 - Occlusion and stenosis of unspecified carotid artery Status : Chronic (9) Pacemaker Code(s): Z95.0 - Presence of cardiac pacemaker Status: Chronic (10) History of mitral valve repair Code(s): Z98.890 - Other specified postprocedural states Status: Chronic (11) Osteoporosis Code(s): M81.0 - Age-related osteoporosis without current pathological fracture Status: Chronic (12) Obstructive sleep apnea Code(s): G47.33 - Obstructive sleep apnea (adult) (pediatric) Status: Chronic (13) Pulmonary hypertension Code(s): I27.20 - Pulmonary hypertension, unspecified Status: Chronic (14) Hypothyroidism Code(s): E03.9 - Hypothyroidism, unspecified Status: Chronic - Plan Plan: She will be maintained on her Eliquis for her for DVT prophylaxis and for her paroxysmal atrial fibrillation. I will consult infectious disease because of her persistent fever. She will be continued on Levaquin and Flagyl for now. Urine and blood cultures are still pending. She will be given Tylenol as needed for any fever. I will add KCL to her IV normal saline since her potassium was low today. Repeat CBC, BMP in the morning. She was put on oral calcium for her hypocalcemia.
[2018-04-30] MEDS: Calcium/Vitamin D 250/125 MG Tablet PO SCH ×3 (08:29→20:09)
--- NOTE | 2018-04-30 12:31 | P.CONID ---
History of Present Illness Service: Infectious Disease Consult date: 04/30/18 Requesting Physician: Tulio De La Paz Primary Care Provider: Tulio De La Paz MD Chief Complaint: Abdominal pain, persistent diarrhea, weakness History of Present Illness: Patient seen and examined. Records reviewed. Patient is a 73-year-old female, presented to the hospital for further evaluation of severe diarrhea and abdominal cramping. Back in March towards the last week, patient received Reclast infusion for her osteoporosis. About 2-3 days after that infusion, she developed swelling and redness in her red eye. She went to the emergency room on April 01, and she was given some steroids as well as referral to an field case manager. Her symptoms gradually improved, and about the first week of April she started having some upper respiratory symptoms and some congestion. She went to her primary care physician at that time and she was given a prescription for Z-[place] which she completed 5 days treatment. About 10 days prior to admission she started developing severe diarrhea, watery , some with mucus, associated with diffuse abdominal pain and abdominal cramping. She was given Flagyl, and stool for C. difficile was tested which came back negative, but it was decided for her to complete a week course of Flagyl. Her symptoms improved a little bit, however 1-2 days prior to admission , her diarrhea came back with a vengeance. She also started having worsening abdominal pain. She felt somewhat chilly but there was no documented fever. The day of admission she had vomiting, and because of her persistent symptoms, and her progressive weakness and poor appetite, she presented to the hospital for further evaluation and treatment. On presentation she had an elevated WBC. Her lipase was elevated at 545. LFTs normal. Her urinalysis did show 6-8 WBC with occasional clumps. C. difficile toxin was negative. CT of the abdomen and pelvis did not show any significant abnormality, nor did it show any bowel wall thickening. Abdominal ultrasound is unremarkable. She initially had some low-grade temps, but her temperature has been increasing and is up to 101.8. Her white count also had gone up to 17.5. GI is evaluating the patient. She is currently on Levaquin and Flagyl. She currently denies any respiratory complaint. She is voiding okay at home. Patient has been with limited activity since she has been sick due to her significant weakness. She has had prior repair of a fracture on the left hip, and she has had previous problem with arthritis in both knees, and due to her immobility, she has been experiencing increased pain specifically worse on the left knee. Infectious disease consultation has been requested to evaluate the patient. Review of Systems Constitutional: Reports anorexia, Reports chills, Reports fatigue, Reports fever (s), Reports malaise Eyes: Denies discharge, Denies dry eyes Ears, Nose, Mouth, and Throat: Denies difficulty swallowing, Denies ear pain, Denies facial pain, Denies nasal discharge, Denies sore throat Cardiovascular: Denies chest pain, Denies shortness of breath Respiratory: Denies cough, Denies shortness of breath Gastrointestinal: Reports abdominal pain, Reports cramping, Reports loose stools , Reports nausea, Reports vomiting, Denies bright, red blood in stools, Denies difficulty swallowing, Denies pain with swallowing Genitourinary: Denies painful urination Musculoskeletal: Reports joint pain, Reports joint swelling, Reports limited joint movement, Reports muscle weakness Skin/Breast: Denies rash PMFSH - History History Provided By: Patient - Medical History Medical History: Medical History (Last Updated 04/30/18 @ 12:59 by Brittani Mayorga MD) CAD (coronary artery disease) Fatty liver Hx of cardiac pacemaker Hyperlipidemia Hypertension Hypothyroidism Normal colonoscopy Osteoporosis Paroxysmal atrial fibrillation Sleep apnea Ulcerative colitis - Surgical History Surgical History: Surgical History (Last Updated 04/30/18 @ 12:30 by Brittani Mayorga MD) History of appendectomy History of mitral valve repair History of tonsillectomy and adenoidectomy History of total abdominal hysterectomy Status post-operative repair of closed fracture of left hip - Family History Family History: Family History (Last Updated 04/29/18 @ 04:39 by Tulio De La Paz MD) Mother Leukemia Other Heart disease Hypertension - Tobacco History Second Hand Smoke Exposure: No Tobacco Use In Past 30 Days: No Smoking Status: Never smoker - Alcohol History How Often Do You Have a Drink Containing Alcohol: Monthly or less - Substance Use History Substance History: No History of Abuse - Travel History Recent Travel in the [place] Within the Last 8 Weeks: No Recent Travel Out of the Country Within the Last 8 Weeks: No - Immunization History Tetanus Immunization: <5 Years Hx Influenza Vaccine This Season: No Medications and Allergies Active Medications: Active Medications Acetaminophen (Tylenol) 650 mg PO Q6H PRN PRN Reason: TEMP > 100.5 Last Admin: 04/30/18 03:14 Dose: 650 mg Apixaban (Eliquis) 2.5 mg PO BID [facility] Last Admin: 04/30/18 08:29 Dose: 2.5 mg Atorvastatin Calcium (Lipitor) 40 mg PO DAILY [facility] Last Admin: 04/30/18 08:28 Dose: 40 mg Calcium/Vitamin D (Oscal With D 250/125 Mg) 3 tab PO BID [facility] Last Admin: 04/30/18 09:14 Dose: 1 tab Levofloxacin/Dextrose (Levaquin 500 Mg Premix Inj) 500 mg in 100 mls @ 100 mls/ hr IV.SIG Q24H [facility] Last Infusion: 04/30/18 06:25 Dose: Infused Metronidazole/Sodium Chloride (Flagyl 500 Mg Inj) 100 mls @ 100 mls/hr IV.SIG Q8H [facility] Last Infusion: 04/30/18 06:00 Dose: Infused Potassium Chloride/Sodium Chloride (Ns + Kcl 40 Meq Inj) 1,000 mls @ 100 mls/ hr IV.CONT .Q10H [facility] Last Admin: 04/30/18 08:29 Dose: 100 mls/hr Levothyroxine Sodium (Synthroid) 25 mcg PO DAILY@0600 [facility] Last Admin: 04/30/18 05:12 Dose: 25 mcg Miscellaneous (Pill Splitter) 1 each OTHER UNSCH PRN PRN Reason: PILL SPLITTER Last Admin: 04/30/18 08:30 Dose: 1 each Morphine Sulfate (Morphine Inj) 2 mg IV.PUSH Q3H PRN PRN Reason: PAIN 1-10 AND/OR FEVER >101F Last Admin: 04/30/18 08:28 Dose: 2 mg Ondansetron HCl (Zofran Inj) 4 mg IV.PUSH Q6H PRN PRN Reason: NAUSEA OR VOMITING Last Admin: 04/30/18 09:16 Dose: 4 mg Sotalol HCl (Betapace) 40 mg PO Q12HR [facility] Last Admin: 04/30/18 08:29 Dose: 40 mg Allergies Allergy/AdvReac Type Severity Reaction Status Date / Time cephalexin [From Keflex] Allergy Rash Verified 04/28/18 21:02 codeine Allergy Abdominal Verified 04/28/18 21:02 Pain mannitol [From Reclast] Allergy Nausea/Vomi Verified 04/28/18 21:02 ting meperidine [From Demerol] Allergy Abdominal Verified 04/28/18 21:02 Pain water for injection,sterile Allergy Nausea/Vomi Verified 04/28/18 21:02 [From Reclast] ting zoledronic acid Allergy Nausea/Vomi Verified 04/28/18 21:02 [From Reclast] ting Home Medications Medication Instructions Recorded Confirmed Type apixaban [Eliquis] 2.5 mg PO BID 04/28/18 04/28/18 History levothyroxine 25 mcg PO DAILY 04/28/18 04/28/18 History metronidazole [Flagyl] 500 mg PO QID 04/28/18 04/28/18 History rosuvastatin [Crestor] 20 mg PO DAILY 04/28/18 04/28/18 History sotalol [Betapace] 40 mg PO Q12H 04/28/18 04/29/18 History calcium carbonate-vitamin D3 1 tab PO BID 04/29/18 04/29/18 History [Calcium 600 + D(3)] Exam Vital signs: Vital Signs 04/29/18 16:00 04/29/18 20:00 04/29/18 22:41 Temperature 99.7 F H 99.2 F Pulse Rate 75 75 Respiratory Rate 18 20 22 Blood Pressure 104/55 L 106/55 L Pulse Oximetry 95 95 04/30/18 00:00 04/30/18 03:48 04/30/18 04:17 Temperature 99.1 F 101.8 F H Pulse Rate 75 75 Respiratory Rate 18 16 18 Blood Pressure 137/62 127/64 Pulse Oximetry 94 L 94 L 04/30/18 08:00 Temperature Pulse Rate 75 Respiratory Rate Blood Pressure Pulse Oximetry Intake & Output 04/29/18 04/30/18 04/30/18 18:59 06:59 18:59 Intake Total 1780 / 1780 1540 / 1540 Output Total 450 / 450 500 / 500 Balance 1330 / 1330 1040 / 1040 Weight 63.2 kg Intake: IV 1300 / 1300 1300 / 1300 NS Inj 1,000 ML @ 100 mls/hr IV 1000 / 1000 1000 / 1000 .CONT .Q10H [facility] Rx#:[id number] Levaquin 500 mg Premix Inj 500 100 / 100 100 / 100 mg In 100 ml @ 100 mls/hr IV. SIG Q24H [facility] Rx#:[id number] Flagyl 500 MG Inj 100 ML @ 100 200 / 200 200 / 200 mls/hr IV.SIG Q8H [facility] Rx#: [id number] Oral 480 / 480 240 / 240 Output: Urine 450 / 450 500 / 500 Other: Date of Last Bowel Movement 04/29/18 04/30/18 04/29/18 # Bowel Movements 1 Narrative: Physical Examination GENERAL: Patient is a well-nourished, well-developed female, awake and alert, not in respiratory distress. SKIN: Warm and dry. No generalized rash, no ecchymoses and no evidence of embolic lesions. HEAD: Atraumatic. Normocephalic. No temporal wasting, or tenderness. EYES: [place] conjunctiva. No petechia or hemorrhage. Pupils equal, round and reactive to light. Extraocular movements full and intact. No scleral icterus. No injection or drainage. EARS, NOSE AND THROAT: Nose without bleeding or purulent nasal discharge. No sinus tenderness. Mucous membranes slightly dry. No oral lesions noted. NECK: Trachea midline. Supple and not tender, no meningeal signs CARDIOVASCULAR: Regular rate and rhythm. Soft murmur RSB RESPIRATORY: Clear to auscultation. Breath sounds equal bilaterally. No rales , wheezing or rhonchi ABDOMEN: Soft, nondistended, bwel sounds present and normoactive. Has diffuse abdominal tenderness, mild, with no guarding. No rebound. No organomegaly. EXTREMITIES: No clubbing, cyanosis, or edema. Has pain with passive ROM both knees, seems to have effusions myles, no erythema, same temperature both knees. No calf tenderness. Well perfused and warm. NEUROLOGICAL: Awake and alert. Cranial nerves grossly intact. Motor grossly within normal limits. PSYCHIATRIC: Normal affect, calm and cooperative. LINE: No evidence of infection Results - Labs CBC & Chem 7: 04/30/18 06:02 04/30/18 06:02 Labs: Laboratory Results - last 24 hr 04/29/18 04/30/18 04/30/18 11:30 06:02 06:02 CBC w Diff Auto diff final WBC 17.5 H RBC 3.33 L Hgb 9.7 L Hct 28.8 L MCV 86.5 MCH 29.3 MCHC 33.8 RDW 13.7 Plt Count 237 MPV 8.0 Neut % (Auto) 86.3 H Lymph % (Auto) 3.4 L [place] % (Auto) 9.8 H Eos % (Auto) 0.3 Baso % (Auto) 0.2 Neut # (Auto) 15.1 H Lymph # (Auto) 0.6 L [place] # (Auto) 1.7 H Eos # (Auto) 0.1 Baso # (Auto) 0.0 WBC Differential . Differential Comment . Sodium 127 L Potassium 3.1 L Chloride 98 Carbon Dioxide 20.5 L Anion Gap 9 BUN 7 Creatinine 0.52 Estimated GFR Greater than 89 Random Glucose 121 H Calcium 6.2 L* D Prot Corrected Calcium 7.1 L* Total Protein 5.2 L D Lipase 140 Stl C.difficile Tox PCR Negative St C. diff Tox Epid 027 Negative - Imaging Impressions Abdomen Ultrasound 04/29/18 00:00 CONCLUSION: 1. Unremarkable study. Abdomen/Pelvis CT 04/29/18 00:00 CONCLUSION: Gas bubble inside the bladder may be iatrogenic and of uncertain etiology, otherwise unremarkable. Chest X-Ray 04/29/18 00:00 CONCLUSION: 1. No acute cardiopulmonary disease. Assessment and Plan - Plan Impression Febrile illness, etiology? possible sepsis, source? - had elevated lipase on admission, better, could explain some of abdominal pain, possibly diarrhea; no radiologic evidence of pancreatitis - has abnormal UA, mild symptoms and could give fevers - diarrhea, multiple C diff testing have been negative, no bowel wall thickening on CT Abdominal pain Diarrhea, improving Recommendation Change Levaquin to Unasyn - will cover the Enterococcus and GNR pathogens Continue Flagyl Check viral panel as part of fever workup Follow temps Follow C/S Follow CBC Monitor progress I will follow along with you Thank you for this consultation
[2018-04-30] MEDS: Ampicillin/Sulbactam Inj 3 GM in Sodium Chloride 0.9% Inj 100 ML IV.SIG SCH ×2 (14:14→20:08)
--- NOTE | 2018-04-30 16:10 | P.PNGI ---
Subjective Interval history: Patient laying in bed, seems to be comfortable, complaining of joint pains, febrile illness, no diarrhea 1's loose bowel, less abdominal pain, no nausea or vomiting Physical Exam Vital signs: Vital Signs 04/29/18 20:00 04/29/18 22:41 04/30/18 00:00 Temperature 99.2 F 99.1 F Pulse Rate 75 75 Respiratory Rate 20 22 18 Blood Pressure 106/55 L 137/62 Pulse Oximetry 95 94 L 04/30/18 03:48 04/30/18 04:17 04/30/18 08:00 Temperature 101.8 F H 98.4 F Pulse Rate 75 74 Respiratory Rate 16 18 16 Blood Pressure 127/64 129/59 L Pulse Oximetry 94 L 95 04/30/18 12:00 Temperature 98.6 F Pulse Rate 74 Respiratory Rate 18 Blood Pressure 111/63 Pulse Oximetry 96 Intake & Output 04/29/18 04/30/18 04/30/18 18:59 06:59 18:59 Intake Total 1780 / 1780 1540 / 1540 Output Total 450 / 450 500 / 500 Balance 1330 / 1330 1040 / 1040 Weight 63.2 kg Intake: IV 1300 / 1300 1300 / 1300 NS Inj 1,000 ML @ 100 mls/hr IV 1000 / 1000 1000 / 1000 .CONT .Q10H BALA Rx#:[id number] Levaquin 500 mg Premix Inj 500 100 / 100 100 / 100 mg In 100 ml @ 100 mls/hr IV. SIG Q24H BALA Rx#:[id number] Flagyl 500 MG Inj 100 ML @ 100 200 / 200 200 / 200 mls/hr IV.SIG Q8H BALA Rx#: [id number] Oral 480 / 480 240 / 240 Output: Urine 450 / 450 500 / 500 Other: Date of Last Bowel Movement 04/29/18 04/30/18 04/29/18 # Bowel Movements 1 - Constitutional no acute distress - Routine HEENT Exam Head: Present: normocephalic, atraumatic Eye: Present: EOMI, PERRL ENT: Present: mucous membranes moist - Routine Neck Exam Present: supple, full ROM - Routine Respiratory Exam Present: CTA bilaterally - Routine Cardiovascular Exam Present: RRR, S1, S2 - Routine Abdominal Exam Present: soft, normoactive bowel sounds Results - Labs CBC & Chem 7: 04/30/18 06:02 07/29/18 06:02 Laboratory Results - last 24 hr 04/29/18 04/30/18 04/30/18 11:30 06:02 06:02 CBC w Diff Auto diff final WBC 17.5 H RBC 3.33 L Hgb 9.7 L Hct 28.8 L MCV 86.5 MCH 29.3 MCHC 33.8 RDW 13.7 Plt Count 237 MPV 8.0 Neut % (Auto) 86.3 H Lymph % (Auto) 3.4 L [place] % (Auto) 9.8 H Eos % (Auto) 0.3 Baso % (Auto) 0.2 Neut # (Auto) 15.1 H Lymph # (Auto) 0.6 L [place] # (Auto) 1.7 H Eos # (Auto) 0.1 Baso # (Auto) 0.0 WBC Differential . Differential Comment . Sodium 127 L Potassium 3.1 L Chloride 98 Carbon Dioxide 20.5 L Anion Gap 9 BUN 7 Creatinine 0.52 Estimated GFR Greater than 89 Random Glucose 121 H Calcium 6.2 L* D Prot Corrected Calcium 7.1 L* Total Protein 5.2 L D Lipase 140 Stl C.difficile Tox PCR Negative St C. diff Tox Epid 027 Negative Microbiology 04/29/18 06:10 Blood - Peripheral Aerobic Blood Culture - Preliminary No growth in 1 day 04/29/18 06:10 Blood - Peripheral Anaerobic Blood Culture - Preliminary No growth in 1 day 04/29/18 06:15 Blood - Peripheral Aerobic Blood Culture - Preliminary No growth in 1 day 04/29/18 06:15 Blood - Peripheral Anaerobic Blood Culture - Preliminary No growth in 1 day 04/29/18 07:38 Clean Catch Urine Urine Culture - Preliminary Group D Enterococcus - Imaging Impressions Abdomen Ultrasound 04/29/18 00:00 CONCLUSION: 1. Unremarkable study. Assessment and Plan - Plan Patient is 73-year-old lady who came with abdominal pain and diarrhea she had elevated lipase so she might have pancreatitis causing her symptom but her diarrhea subsided and her abdominal pain subsided, she is having joints pain and low-grade temperature, she was seen by ID for consultation questionable etiology could be related to the pancreatitis even though CT scan does not show that We will start diet and advance it as tolerated I will hold off on endoscopy and colonoscopy now until the patient feels stronger but it is needed because the potential colitis and the anemia
[2018-05-01] MEDS: Ampicillin/Sulbactam Inj 3 GM in Sodium Chloride 0.9% Inj 100 ML IV.SIG SCH ×4 (02:06→20:26)
[2018-05-01] MEDS: Morphine Sulfate Inj 2 MG/ML Vial IV.PUSH PRN ×6 (02:07→21:56)
[2018-05-01 06:24] LABS: Baso % (Auto) 0.1 % (0.0-2.0); Eos # (Auto) 0.1 th/mm3 (0.0-0.4); Eos % (Auto) 0.4 % (0.0-4.0); Hematocrit 30.8 % (35.0-46.0); Hemoglobin 10.5 gm/dL (11.6-15.3); Lymph # (Auto) 0.8 th/mm3 (1.0-4.8); Lymph % (Auto) 2.6 % (9.0-44.0); Mean Corpuscular HGB Conc 34.1 % (32.0-36.0); Mean Corpuscular Hemoglobin 29.6 pg (27.0-34.0); Mean Platelet Volume 9.2 fL (7.0-11.0); Neut # (Auto) 26.2 th/mm3 (1.8-7.7); Neut % (Auto) 89.9 % (16.0-70.0); Platelet Count 285 th/mm3 (150-450); Red Blood Count 3.54 mil/mm3 (4.00-5.30); Red Cell Distribution Width 13.8 % (11.6-17.2); White Blood Count 29.1 th/mm3 (4.0-11.0)
[2018-05-01 06:31] LABS: Chloride 98 meq/L (98-107); Potassium 3.8 meq/L (3.5-5.1); Sodium 128 meq/L (136-145)
[2018-05-01 06:42] LABS: Anion Gap 10 meq/L (5-15); Blood Urea Nitrogen 9 mg/dL (7-18); Calcium 6.5 mg/dL (8.5-10.1); Glomerular Filtration Rate Greater Than 89 mL/min (>89); Glucose,Random 66 mg/dL (74-106)
[2018-05-01 06:53] LABS: Total Protein 5.5 g/dL (6.4-8.2)
[2018-05-01 06:54] LABS: Lymphocytes 2 % (9-44); Monocytes 11 % (0-8); Myelocytes 1 % (0-0)
[2018-05-01 06:56] LABS: Platelet Estimate Normal (Normal); Platelet Morphology Normal (Normal)
[2018-05-01] MEDS: Calcium/Vitamin D 250/125 MG Tablet PO SCH ×2 (09:45→20:34)
--- NOTE | 2018-05-01 10:20 | P.PN ---
Subjective Interval history: Patient complains of joints ache in multiple joints. Her abdominal pain is improved. She was not urinating then morning scan indicated her bladder wasn't emptying so a Garcia cath was placed without 500ml of urine obtained. She has no shortness of breath. Her diarrhea is much improved. Physical Exam Vital signs: Vital Signs 04/30/18 12:00 04/30/18 16:00 04/30/18 18:52 Temperature 98.6 F 98.6 F 100.6 F H Pulse Rate 74 74 75 Respiratory Rate 18 16 16 Blood Pressure 111/63 125/77 121/66 Pulse Oximetry 96 95 04/30/18 20:00 05/01/18 00:00 05/01/18 04:00 Temperature 99.6 F 98.7 F 98.6 F Pulse Rate 76 77 82 Respiratory Rate 16 16 16 Blood Pressure 100/52 L 112/59 L 142/66 H Pulse Oximetry 96 97 96 05/01/18 08:00 Temperature 99.6 F Pulse Rate 74 Respiratory Rate 17 Blood Pressure 136/66 Pulse Oximetry 97 Intake & Output 04/30/18 05/01/18 05/01/18 18:59 06:59 18:59 Intake Total 5160 / 5160 1640 / 1640 Output Total 600 / 600 950 / 950 Balance 4560 / 4560 690 / 690 Weight 63.2 kg Intake: IV 4200 / 4200 1400 / 1400 NS + KCl 40 mEq Inj 1,000 ML @ 1000 / 1000 1000 / 1000 100 mls/hr IV.CONT .Q10H [facility]A Rx #:[id number] NS Inj 1,000 ML @ 100 mls/hr IV 1000 / 1000 .CONT .Q10H BALA Rx#:[id number] Unasyn Inj 3 GM In NS Inj 100 100 / 100 200 / 200 ML @ 200 mls/hr IV.SIG Q6H BALA Rx#:[id number] Flagyl 500 MG Inj 100 ML @ 100 100 / 100 200 / 200 mls/hr IV.SIG Q8H BALA Rx#: [id number] Oral 960 / 960 240 / 240 Output: Urine 600 / 600 300 / 300 Urine Amount (Catheter) 650 / 650 Indwelling Urethral Catheter 650 / 650 Other: Date of Last Bowel Movement 04/30/18 # Bowel Movements 2 Narrative: Exam: This is a pleasant white female in no distress. HEENT: Pupils equal, EOMs intact, mouth without lesions Neck: No JVD, neck is supple Heart: Regular rate and rhythm without murmurs or gallops Lungs: Clear to auscultation Abdomen: Soft, no masses, only minimal tenderness in epigastric region and lower abdomen today Extremities: pulses palpated, no calf tenderness. She has slight swelling of her knees but no warmness to touch or redness Neuro: Alert, oriented, normal motor exam, sensation intact - Urinary Catheter Management Indwelling Urethral Catheter Cath placed during this visit: yes Reason for continuing: Acute urinary retention Insertion date: 05/01/18 Insertion time: 06:35 Results - Labs CBC & Chem 7: 05/01/18 05:15 05/01/18 05:15 Laboratory Results - last 24 hr 04/30/18 05/01/18 05/01/18 14:09 05:15 05:15 CBC w Diff Slide review pending WBC 29.1 H D RBC 3.54 L Hgb 10.5 L Hct 30.8 L MCV 87.0 MCH 29.6 MCHC 34.1 RDW 13.8 Plt Count 285 MPV 9.2 Neut % (Auto) 89.9 H Lymph % (Auto) 2.6 L [place] % (Auto) 7.0 Eos % (Auto) 0.4 Baso % (Auto) 0.1 Neut # (Auto) 26.2 H Lymph # (Auto) 0.8 L [place] # (Auto) 2.0 H Eos # (Auto) 0.1 Baso # (Auto) 0.0 WBC Differential Manual diff final Seg Neuts % (Manual) 69 Band Neuts % (Manual) 17 H Lymphocytes % (Manual) 2 L Monocytes % (Manual) 11 H Myelocytes % (Man) 1 H Abs Neuts (Manual) 25.3 H Differential Comment . Platelet Estimate Normal Platelet Morphology Normal Sodium 128 L Potassium 3.8 Chloride 98 Carbon Dioxide 20.0 L Anion Gap 10 BUN 9 Creatinine 0.50 Estimated GFR Greater than 89 Random Glucose 66 L Calcium 6.5 L* Prot Corrected Calcium 7.3 L* Total Protein 5.5 L Adenovirus (PCR) Not detected Bordetella holmesii PCR Not detected B. pertussis DNA (PCR) Not detected B. paraper/bronch (PCR) Not detected Human Metapneumovir PCR Not detected Influenza A (RT-PCR) Not detected Influenza A (H1) PCR Not detected Influenza A (H3) PCR Not detected Influenza B (RT-PCR) Not detected Parainfluenza 1 (PCR) Not detected Parainfluenza 2 (PCR) Not detected Parainfluenza 3 (PCR) Not detected Parainfluenza 4 (PCR) Not detected RSV Type A (PCR) Not detected RSV Type B (PCR) Not detected Rhinovirus (PCR) Not detected Microbiology 04/29/18 06:10 Blood - Peripheral Aerobic Blood Culture - Preliminary No growth in 1 day 04/29/18 06:10 Blood - Peripheral Anaerobic Blood Culture - Preliminary No growth in 1 day 04/29/18 06:15 Blood - Peripheral Aerobic Blood Culture - Preliminary No growth in 1 day 04/29/18 06:15 Blood - Peripheral Anaerobic Blood Culture - Preliminary No growth in 1 day 04/29/18 07:38 Clean Catch Urine Urine Culture - Preliminary Group D Enterococcus Laboratory Results - last 48 hr 04/29/18 04/30/18 04/30/18 11:30 06:02 06:02 CBC w Diff Auto diff final WBC 17.5 H RBC 3.33 L Hgb 9.7 L Hct 28.8 L MCV 86.5 MCH 29.3 MCHC 33.8 RDW 13.7 Plt Count 237 MPV 8.0 Neut % (Auto) 86.3 H Lymph % (Auto) 3.4 L [place] % (Auto) 9.8 H Eos % (Auto) 0.3 Baso % (Auto) 0.2 Neut # (Auto) 15.1 H Lymph # (Auto) 0.6 L [place] # (Auto) 1.7 H Eos # (Auto) 0.1 Baso # (Auto) 0.0 WBC Differential . Seg Neuts % (Manual) Band Neuts % (Manual) Lymphocytes % (Manual) Monocytes % (Manual) Myelocytes % (Man) Abs Neuts (Manual) Differential Comment . Platelet Estimate Platelet Morphology Sodium 127 L Potassium 3.1 L Chloride 98 Carbon Dioxide 20.5 L Anion Gap 9 BUN 7 Creatinine 0.52 Estimated GFR Greater than 89 Random Glucose 121 H Calcium 6.2 L* D Prot Corrected Calcium 7.1 L* Total Protein 5.2 L D Lipase 140 Stl C.difficile Tox PCR Negative St C. diff Tox Epid 027 Negative Adenovirus (PCR) Bordetella holmesii PCR B. pertussis DNA (PCR) B. paraper/bronch (PCR) Human Metapneumovir PCR Influenza A (RT-PCR) Influenza A (H1) PCR Influenza A (H3) PCR Influenza B (RT-PCR) Parainfluenza 1 (PCR) Parainfluenza 2 (PCR) Parainfluenza 3 (PCR) Parainfluenza 4 (PCR) RSV Type A (PCR) RSV Type B (PCR) Rhinovirus (PCR) 04/30/18 05/01/18 05/01/18 14:09 05:15 05:15 CBC w Diff Slide review pending WBC 29.1 H D RBC 3.54 L Hgb 10.5 L Hct 30.8 L MCV 87.0 MCH 29.6 MCHC 34.1 RDW 13.8 Plt Count 285 MPV 9.2 Neut % (Auto) 89.9 H Lymph % (Auto) 2.6 L [place] % (Auto) 7.0 Eos % (Auto) 0.4 Baso % (Auto) 0.1 Neut # (Auto) 26.2 H Lymph # (Auto) 0.8 L [place] # (Auto) 2.0 H Eos # (Auto) 0.1 Baso # (Auto) 0.0 WBC Differential Manual diff final Seg Neuts % (Manual) 69 Band Neuts % (Manual) 17 H Lymphocytes % (Manual) 2 L Monocytes % (Manual) 11 H Myelocytes % (Man) 1 H Abs Neuts (Manual) 25.3 H Differential Comment . Platelet Estimate Normal Platelet Morphology Normal Sodium 128 L Potassium 3.8 Chloride 98 Carbon Dioxide 20.0 L Anion Gap 10 BUN 9 Creatinine 0.50 Estimated GFR Greater than 89 Random Glucose 66 L Calcium 6.5 L* Prot Corrected Calcium 7.3 L* Total Protein 5.5 L Lipase Stl C.difficile Tox PCR St C. diff Tox Epid 027 Adenovirus (PCR) Not detected Bordetella holmesii PCR Not detected B. pertussis DNA (PCR) Not detected B. paraper/bronch (PCR) Not detected Human Metapneumovir PCR Not detected Influenza A (RT-PCR) Not detected Influenza A (H1) PCR Not detected Influenza A (H3) PCR Not detected Influenza B (RT-PCR) Not detected Parainfluenza 1 (PCR) Not detected Parainfluenza 2 (PCR) Not detected Parainfluenza 3 (PCR) Not detected Parainfluenza 4 (PCR) Not detected RSV Type A (PCR) Not detected RSV Type B (PCR) Not detected Rhinovirus (PCR) Not detected - Imaging Abdomen Ultrasound 04/29/18 00:00 CONCLUSION: 1. Unremarkable study. Abdomen/Pelvis CT 04/29/18 00:00 CONCLUSION: Gas bubble inside the bladder may be iatrogenic and of uncertain etiology, otherwise unremarkable. Chest X-Ray 04/29/18 00:00 CONCLUSION: 1. No acute cardiopulmonary disease. Assessment and Plan - Assessment (1) Fever Code(s): R50.9 - Fever, unspecified Status: Acute (2) Elevated lipase Code(s): R74.8 - Abnormal levels of other serum enzymes Status: Acute Plan: Her lipase level is now normal. She likely had some minimal pancreatitis. (3) Acute hyponatremia Code(s): E87.1 - Hypo-osmolality and hyponatremia Status: Acute (4) Acute diarrhea Code(s): R19.7 - Diarrhea, unspecified Status: Acute (5) Urinary retention Code(s): R33.9 - Retention of urine, unspecified Status: Acute (6) Hypocalcemia Code(s): E83.51 - Hypocalcemia Status: Acute (7) Hyperlipidemia Code(s): E78.5 - Hyperlipidemia, unspecified Status: Chronic (8) Coronary artery disease Code(s): I25.10 - Atherosclerotic heart disease of [place] coronary artery without angina pectoris Status: Chronic (9) Paroxysmal atrial fibrillation Code(s): I48.0 - Paroxysmal atrial fibrillation Status: Chronic (10) Carotid artery plaque Code(s): I65.29 - Occlusion and stenosis of unspecified carotid artery Status : Chronic (11) Pacemaker Code(s): Z95.0 - Presence of cardiac pacemaker Status: Chronic (12) History of mitral valve repair Code(s): Z98.890 - Other specified postprocedural states Status: Chronic (13) Osteoporosis Code(s): M81.0 - Age-related osteoporosis without current pathological fracture Status: Chronic (14) Obstructive sleep apnea Code(s): G47.33 - Obstructive sleep apnea (adult) (pediatric) Status: Chronic (15) Pulmonary hypertension Code(s): I27.20 - Pulmonary hypertension, unspecified Status: Chronic (16) Hypothyroidism Code(s): E03.9 - Hypothyroidism, unspecified Status: Chronic - Plan Plan: She will be maintained on her Eliquis for her for DVT prophylaxis and for her paroxysmal atrial fibrillation. I talked with ID (Dr Yang) today. She had changed her antibiotics yesterday. I was concerned because of her increased WBC even though clinically she is a little better. She did have some urinary retention this morning requiring placement of a Garcia cath. I asked Dr Yang if she had any thoughts in regard to her joint aches. She stated she would see her today again and determine if any further changes would be need. Repeat CBC, BMP in the morning. She was put on oral calcium for her hypocalcemia and it is better today. I will try on some Prednisone 20mg daily for her joint aches to help with inflammation.
[2018-05-01 10:57] LABS: Bilirubin,Urine Negative (Negative); Clarity,Urine Slightly Cloudy (Clear); Color,Urine Yellow (Yellw/Straw); Glucose,Urine (UA) Negative (Negative); Leukocyte Esterase,Urine Trace (Negative); Nitrite,Urine Negative (Negative); Specific Gravity,Urine 1.025 (1.002-1.035); Urobilinogen,Urine 0.2 mg/dL (Less than 2)
[2018-05-01 11:02] LABS: Bacteria,Urine Rare /hpf; RBC,Urine 0-3 /hpf (0-3); Squamous Epithelial Cell,Urine 0-5 /hpf (0-5); WBC,Urine 0-5 /hpf (0-5)
[2018-05-01] MEDS: predniSONE 20 MG Tablet PO SCH (12:46)
[2018-05-01] MEDS: ALPRAZolam 0.25 MG Tablet PO PRN ×2 (12:47→21:58)
--- NOTE | 2018-05-01 12:59 | P.PNID ---
Subjective Remarks: Patient is a 73-year-old female, presented to the hospital for further evaluation of severe diarrhea and abdominal cramping. Back in March towards the last week, patient received Reclast infusion for her osteoporosis. About 2-3 days after that infusion, she developed swelling and redness in her red eye. She went to the emergency room on April 01, and she was given some steroids as well as referral to an regional planner. Her symptoms gradually improved, and about the first week of April she started having some upper respiratory symptoms and some congestion. She went to her primary care physician at that time and she was given a prescription for Z-[place] which she completed 5 days treatment. About 10 days prior to admission she started developing severe diarrhea, watery , some with mucus, associated with diffuse abdominal pain and abdominal cramping. She was given Flagyl, and stool for C. difficile was tested which came back negative, but it was decided for her to complete a week course of Flagyl. Her symptoms improved a little bit, however 1-2 days prior to admission , her diarrhea came back with a vengeance. She also started having worsening abdominal pain. She felt somewhat chilly but there was no documented fever. The day of admission she had vomiting, and because of her persistent symptoms, and her progressive weakness and poor appetite, she presented to the hospital for further evaluation and treatment. On presentation she had an elevated WBC. Her lipase was elevated at 545. LFTs normal. Her urinalysis did show 6-8 WBC with occasional clumps. C. difficile toxin was negative. CT of the abdomen and pelvis did not show any significant abnormality, nor did it show any bowel wall thickening. Abdominal ultrasound is unremarkable. She initially had some low-grade temps, but her temperature has been increasing and is up to 101.8. Her white count also had gone up to 17.5. GI is evaluating the patient. She is currently on Levaquin and Flagyl. She currently denies any respiratory complaint. She is voiding okay at home. Patient has been with limited activity since she has been sick due to her significant weakness. She has had prior repair of a fracture on the left hip, and she has had previous problem with arthritis in both knees, and due to her immobility, she has been experiencing increased pain specifically worse on the left knee. Infectious disease consultation has been requested to evaluate the patient. Notes reviewed Temps better Diarrhea better C/S severe pain both knees and hands Had urinary retention and required morales placement this morning WBC up to 29K this morning Repeat UA better Antibiotics: Unasyn Flagyl Lines: No evidence of infection Past Medical History: CAD (coronary artery disease) Fatty liver Hx of cardiac pacemaker Hyperlipidemia Hypertension Hypothyroidism Normal colonoscopy Osteoporosis Paroxysmal atrial fibrillation Sleep apnea Ulcerative colitis History of appendectomy History of mitral valve repair History of tonsillectomy and adenoidectomy History of total abdominal hysterectomy Status post-operative repair of closed fracture of left hip Allergies/Adverse Reactions: Allergies cephalexin [From Keflex] Allergy (Verified 04/28/18 21:02) Rash codeine Allergy (Verified 04/28/18 21:02) Abdominal Pain mannitol [From Reclast] Allergy (Verified 04/28/18 21:02) Nausea/Vomiting meperidine [From Demerol] Allergy (Verified 04/28/18 21:02) Abdominal Pain water for injection,sterile [From Reclast] Allergy (Verified 04/28/18 21:02) Nausea/Vomiting zoledronic acid [From Reclast] Allergy (Verified 04/28/18 21:02) Nausea/Vomiting Objective Vital Signs 04/30/18 16:00 04/30/18 18:52 04/30/18 20:00 Temperature 98.6 F 100.6 F H 99.6 F Pulse Rate 74 75 76 Respiratory Rate 16 16 16 Blood Pressure 125/77 121/66 100/52 L Pulse Oximetry 95 96 05/01/18 00:00 05/01/18 04:00 05/01/18 08:00 Temperature 98.7 F 98.6 F 99.6 F Pulse Rate 77 82 74 Respiratory Rate 16 16 17 Blood Pressure 112/59 L 142/66 H 136/66 Pulse Oximetry 97 96 97 05/01/18 09:43 Temperature Pulse Rate Respiratory Rate 18 Blood Pressure Pulse Oximetry Intake & Output 04/30/18 05/01/18 05/01/18 18:59 06:59 18:59 Intake Total 5160 / 5160 1640 / 1640 Output Total 600 / 600 950 / 950 Balance 4560 / 4560 690 / 690 Weight 63.2 kg Intake: IV 4200 / 4200 1400 / 1400 NS + KCl 40 mEq Inj 1,000 ML @ 1000 / 1000 1000 / 1000 100 mls/hr IV.CONT .Q10H BALA Rx #:[id number] NS Inj 1,000 ML @ 100 mls/hr IV 1000 / 1000 .CONT .Q10H BALA Rx#:[id number] Unasyn Inj 3 GM In NS Inj 100 100 / 100 200 / 200 ML @ 200 mls/hr IV.SIG Q6H BALA Rx#:[id number] Flagyl 500 MG Inj 100 ML @ 100 100 / 100 200 / 200 mls/hr IV.SIG Q8H BALA Rx#: [id number] Oral 960 / 960 240 / 240 Output: Urine 600 / 600 300 / 300 Urine Amount (Catheter) 650 / 650 Indwelling Urethral Catheter 650 / 650 Other: Date of Last Bowel Movement 04/30/18 # Bowel Movements 2 05/01/18 10:30 Clean Catch Urine Urine Culture - Pending 04/29/18 06:10 Blood - Peripheral Aerobic Blood Culture - Preliminary No growth in 2 days 04/29/18 06:10 Blood - Peripheral Anaerobic Blood Culture - Preliminary No growth in 2 days 04/29/18 06:15 Blood - Peripheral Aerobic Blood Culture - Preliminary No growth in 2 days 04/29/18 06:15 Blood - Peripheral Anaerobic Blood Culture - Preliminary No growth in 2 days 04/29/18 07:38 Clean Catch Urine Urine Culture - Final Enterococcus faecalis Lab - Hematology Results 04/30/18 05/01/18 06:02 05:15 CBC w Diff Auto diff final Slide review pending WBC 17.5 H 29.1 H D RBC 3.33 L 3.54 L Hgb 9.7 L 10.5 L Hct 28.8 L 30.8 L MCV 86.5 87.0 MCH 29.3 29.6 MCHC 33.8 34.1 RDW 13.7 13.8 Plt Count 237 285 MPV 8.0 9.2 Neut % (Auto) 86.3 H 89.9 H Lymph % (Auto) 3.4 L 2.6 L [place] % (Auto) 9.8 H 7.0 Eos % (Auto) 0.3 0.4 Baso % (Auto) 0.2 0.1 Neut # (Auto) 15.1 H 26.2 H Lymph # (Auto) 0.6 L 0.8 L [place] # (Auto) 1.7 H 2.0 H Eos # (Auto) 0.1 0.1 Baso # (Auto) 0.0 0.0 WBC Differential . Manual diff final Seg Neuts % (Manual) 69 Band Neuts % (Manual) 17 H Lymphocytes % (Manual) 2 L Monocytes % (Manual) 11 H Myelocytes % (Man) 1 H Abs Neuts (Manual) 25.3 H Differential Comment . . Platelet Estimate Normal Platelet Morphology Normal Lab - Chemistry Results 04/30/18 05/01/18 05/01/18 06:02 05:15 05:15 Sodium 127 L 128 L Potassium 3.1 L 3.8 Chloride 98 98 Carbon Dioxide 20.5 L 20.0 L Anion Gap 9 10 BUN 7 9 Creatinine 0.52 0.50 Estimated GFR Greater than 89 Greater than 89 Random Glucose 121 H 66 L Calcium 6.2 L* D 6.5 L* Prot Corrected Calcium 7.1 L* 7.3 L* Magnesium 1.3 L Total Protein 5.2 L D 5.5 L Lipase 140 Imaging: ITS Impressions Abdomen Ultrasound 04/29/18 00:00 CONCLUSION: 1. Unremarkable study. Abdomen/Pelvis CT 04/29/18 00:00 CONCLUSION: Gas bubble inside the bladder may be iatrogenic and of uncertain etiology, otherwise unremarkable. Chest X-Ray 04/29/18 00:00 CONCLUSION: 1. No acute cardiopulmonary disease. Physical Exam: GENERAL: awake and alert, not in respiratory distress. SKIN: Warm and dry. No generalized rash, no ecchymoses and no evidence of embolic lesions. HEAD: Atraumatic. Normocephalic. No temporal wasting, or tenderness. EYES: [place] conjunctiva. No petechia or hemorrhage. Pupils equal, round and reactive to light. Extraocular movements full and intact. No scleral icterus. No injection or drainage. EARS, NOSE AND THROAT: Nose without bleeding or purulent nasal discharge. No sinus tenderness. Mucous membranes slightly dry. No oral lesions noted. NECK: Trachea midline. Supple and not tender, no meningeal signs CARDIOVASCULAR: Regular rate and rhythm. Soft murmur RSB RESPIRATORY: Clear to auscultation. Breath sounds equal bilaterally. No rales , wheezing or rhonchi ABDOMEN: Soft, nondistended, bowel sounds present and normoactive. Not tender. No organomegaly. EXTREMITIES: No clubbing, cyanosis, or edema. Has pain with passive ROM both knees, seems to have effusions myles, no erythema, same temperature both knees. No calf tenderness. Well perfused and warm. Hands look ok NEUROLOGICAL: Non-focal. PSYCHIATRIC: Normal affect, calm and cooperative. LINE: No evidence of infection Assessment and Plan - Plan Impression Febrile illness, etiology? possible sepsis, source? - better - had elevated lipase on admission, better, could explain some of abdominal pain, possibly diarrhea; no radiologic evidence of pancreatitis - has abnormal UA, mild symptoms and could give fevers - diarrhea, multiple C diff testing have been negative, no bowel wall thickening on CT, better Abdominal pain Diarrhea, improving Polyarthritis, etiology? Recommendation Continue Unasyn - will cover the Enterococcus and GNR pathogens Stop Flagyl Xrays both knees Follow temps Follow C/S Follow CBC Monitor progress Spoke with Dr De La Paz this morning Explained plan to patient and daughter in law Dr Morin to follow starting tomorrow 05/02
--- NOTE | 2018-05-01 14:34 | XR ---
EXAM DATE: 05/01/2018 2:27 PM EDT AGE/SEX: 73 years / Female INDICATIONS: Left knee pain, No trauma CLINICAL DATA: This is the patient's initial encounter. Patient reports that signs and symptoms have been present for 3 days and indicates a pain score of 0/10. MEDICAL/SURGICAL HISTORY: . Left Hip Fracture Appendectomy. Pacemaker. Tonsillectomy. Hyste rectomy, Left repair of Fractured hip COMPARISON: HPO, KNEE COMPLETE RIGHT 4V, 05/01/2018. . FINDINGS: The bone density is diminished. There is chondrocalcinosis of the medial and lateral tibiofemoral com partments, mild joint space narrowing of the tibial femoral compartments, and marginal osteophyte for mation of the medial femoral condyle and medial tibial plateau. There is spurring of the tibial spine s. There is a large knee joint effusion and patellar osteophytosis. CONCLUSION: Chondrocalcinosis, osteoarthritis and large effusion. Electronically signed by: Curt Montejo MD 05/01/2018 2:33 PM EDT
--- NOTE | 2018-05-01 14:36 | XR ---
EXAM DATE: 05/01/2018 2:31 PM EDT AGE/SEX: 73 years / Female INDICATIONS: Right knee pain, No trauma CLINICAL DATA: This is the patient's initial encounter. Patient reports that signs and symptoms have been present for 3 days and indicates a pain score of 7/10. MEDICAL/SURGICAL HISTORY: . Left hip fracture Appendectomy. Pacemaker. Tonsillectomy. Hyste rectomy, Reap air Fracture Left Hip COMPARISON: No prior exams available for comparison. FINDINGS: The examination demonstrates moderate tricompartmental osteoarthritis. There is a small joint effusio n. No acute fracture or destructive lesion is identified. CONCLUSION: Tricompartmental osteoarthritis. There is a small associated joint effusion. No acute fracture identified. Electronically signed by: Robby Tristan MD 05/01/2018 2:35 PM EDT
--- NOTE | 2018-05-01 18:11 | P.PNGI ---
Subjective Interval history: Patient was transferred to the ICU, feeling better, still having loose bowel she had 3-4 bowel movements small amount no blood no mucus still some abdominal discomfort discomfort, but overall feeling better, white blood cells is much higher today Physical Exam Vital signs: Vital Signs 04/30/18 18:52 04/30/18 20:00 05/01/18 00:00 Temperature 100.6 F H 99.6 F 98.7 F Pulse Rate 75 76 77 Respiratory Rate 16 16 16 Blood Pressure 121/66 100/52 L 112/59 L Pulse Oximetry 95 96 97 05/01/18 04:00 05/01/18 08:00 05/01/18 09:43 Temperature 98.6 F 99.6 F Pulse Rate 82 81 Respiratory Rate 16 17 18 Blood Pressure 142/66 H 136/66 Pulse Oximetry 96 97 05/01/18 12:00 05/01/18 13:29 05/01/18 16:00 Temperature 99.4 F 99.7 F H Pulse Rate 78 76 Respiratory Rate 17 18 16 Blood Pressure 151/67 H 110/66 Pulse Oximetry 97 96 Intake & Output 04/30/18 05/01/18 05/01/18 18:59 06:59 18:59 Intake Total 5160 / 5160 1640 / 1640 100 / 100 Output Total 600 / 600 950 / 950 Balance 4560 / 4560 690 / 690 100 / 100 Weight 63.2 kg Intake: IV 4200 / 4200 1400 / 1400 100 / 100 NS + KCl 40 mEq Inj 1,000 ML @ 1000 / 1000 1000 / 1000 100 mls/hr IV.CONT .Q10H BALA Rx #:[id number] NS Inj 1,000 ML @ 100 mls/hr IV 1000 / 1000 .CONT .Q10H BALA Rx#:[id number] Unasyn Inj 3 GM In NS Inj 100 100 / 100 200 / 200 100 / 100 ML @ 200 mls/hr IV.SIG Q6H BALA Rx#:[id number] Flagyl 500 MG Inj 100 ML @ 100 100 / 100 200 / 200 mls/hr IV.SIG Q8H BALA Rx#: [id number] Oral 960 / 960 240 / 240 Output: Urine 600 / 600 300 / 300 Urine Amount (Catheter) 650 / 650 Indwelling Urethral Catheter 650 / 650 Other: Date of Last Bowel Movement 04/30/18 # Bowel Movements 2 - Constitutional no acute distress - Routine HEENT Exam Head: Present: normocephalic, atraumatic Eye: Present: EOMI, PERRL ENT: Present: mucous membranes moist - Routine Neck Exam Present: supple, full ROM - Routine Respiratory Exam Present: CTA bilaterally - Routine Cardiovascular Exam Present: RRR, S1, S2 - Routine Abdominal Exam Present: soft, normoactive bowel sounds Comments: Minimal diffuse tenderness - Urinary Catheter Management Indwelling Urethral Catheter Cath placed during this visit: yes Reason for continuing: Acute urinary retention Insertion date: 05/01/18 Insertion time: 06:35 Results - Labs CBC & Chem 7: 05/01/18 05:15 05/01/18 05:15 Laboratory Results - last 24 hr 04/30/18 05/01/18 05/01/18 14:09 05:15 05:15 CBC w Diff Slide review pending WBC 29.1 H D RBC 3.54 L Hgb 10.5 L Hct 30.8 L MCV 87.0 MCH 29.6 MCHC 34.1 RDW 13.8 Plt Count 285 MPV 9.2 Neut % (Auto) 89.9 H Lymph % (Auto) 2.6 L [place] % (Auto) 7.0 Eos % (Auto) 0.4 Baso % (Auto) 0.1 Neut # (Auto) 26.2 H Lymph # (Auto) 0.8 L [place] # (Auto) 2.0 H Eos # (Auto) 0.1 Baso # (Auto) 0.0 WBC Differential Manual diff final Seg Neuts % (Manual) 69 Band Neuts % (Manual) 17 H Lymphocytes % (Manual) 2 L Monocytes % (Manual) 11 H Myelocytes % (Man) 1 H Abs Neuts (Manual) 25.3 H Differential Comment . Platelet Estimate Normal Platelet Morphology Normal Sodium 128 L Potassium 3.8 Chloride 98 Carbon Dioxide 20.0 L Anion Gap 10 BUN 9 Creatinine 0.50 Estimated GFR Greater than 89 Random Glucose 66 L Calcium 6.5 L* Prot Corrected Calcium 7.3 L* Magnesium Total Protein 5.5 L Ur Collection Type Urine Color Urine Clarity Urine pH Ur Specific [place] Urine Protein Urine Glucose (UA) Urine Ketones Urine Occult Blood Urine Nitrate Urine Bilirubin Urine Urobilinogen Ur Leukocyte Esterase Urine RBC Urine WBC Ur Squamous Epith Cells Urine Bacteria Micro UA Comment Urine Culture Comments Adenovirus (PCR) Not detected Bordetella holmesii PCR Not detected B. pertussis DNA (PCR) Not detected B. paraper/bronch (PCR) Not detected Human Metapneumovir PCR Not detected Influenza A (RT-PCR) Not detected Influenza A (H1) PCR Not detected Influenza A (H3) PCR Not detected Influenza B (RT-PCR) Not detected Parainfluenza 1 (PCR) Not detected Parainfluenza 2 (PCR) Not detected Parainfluenza 3 (PCR) Not detected Parainfluenza 4 (PCR) Not detected RSV Type A (PCR) Not detected RSV Type B (PCR) Not detected Rhinovirus (PCR) Not detected 05/01/18 05/01/18 05:15 10:30 CBC w Diff WBC RBC Hgb Hct MCV MCH MCHC RDW Plt Count MPV Neut % (Auto) Lymph % (Auto) [place] % (Auto) Eos % (Auto) Baso % (Auto) Neut # (Auto) Lymph # (Auto) [place] # (Auto) Eos # (Auto) Baso # (Auto) WBC Differential Seg Neuts % (Manual) Band Neuts % (Manual) Lymphocytes % (Manual) Monocytes % (Manual) Myelocytes % (Man) Abs Neuts (Manual) Differential Comment Platelet Estimate Platelet Morphology Sodium Potassium Chloride Carbon Dioxide Anion Gap BUN Creatinine Estimated GFR Random Glucose Calcium Prot Corrected Calcium Magnesium 1.3 L Total Protein Ur Collection Type Cath Urine Color Yellow Urine Clarity Slightly cloudy Urine pH 6.0 Ur Specific [place] 1.025 Urine Protein 100 H Urine Glucose (UA) Negative Urine Ketones 15 H Urine Occult Blood Small H Urine Nitrate Negative Urine Bilirubin Negative Urine Urobilinogen 0.2 Ur Leukocyte Esterase Trace H Urine RBC 0-3 Urine WBC 0-5 Ur Squamous Epith Cells 0-5 Urine Bacteria Rare H Micro UA Comment Cath-culture ind Urine Culture Comments Cath-cult indicated Adenovirus (PCR) Bordetella holmesii PCR B. pertussis DNA (PCR) B. paraper/bronch (PCR) Human Metapneumovir PCR Influenza A (RT-PCR) Influenza A (H1) PCR Influenza A (H3) PCR Influenza B (RT-PCR) Parainfluenza 1 (PCR) Parainfluenza 2 (PCR) Parainfluenza 3 (PCR) Parainfluenza 4 (PCR) RSV Type A (PCR) RSV Type B (PCR) Rhinovirus (PCR) Microbiology 04/29/18 06:10 Blood - Peripheral Aerobic Blood Culture - Preliminary No growth in 2 days 04/29/18 06:10 Blood - Peripheral Anaerobic Blood Culture - Preliminary No growth in 2 days 04/29/18 06:15 Blood - Peripheral Aerobic Blood Culture - Preliminary No growth in 2 days 04/29/18 06:15 Blood - Peripheral Anaerobic Blood Culture - Preliminary No growth in 2 days 04/29/18 07:38 Clean Catch Urine Urine Culture - Final Enterococcus faecalis - Imaging Impressions Knee X-Ray 05/01/18 00:00 CONCLUSION: Chondrocalcinosis, osteoarthritis and large effusion. Knee X-Ray 05/01/18 00:00 CONCLUSION: Tricompartmental osteoarthritis. There is a small associated joint effusion. No acute fracture identified. Assessment and Plan - Plan Patient is 73-year-old lady who came with abdominal pain and diarrhea she had elevated lipase so she might have pancreatitis causing her symptom but her diarrhea subsided and her abdominal pain subsided, she is having joints pain and low-grade temperature, she was seen by ID for consultation questionable etiology could be related to the pancreatitis even though CT scan does not show that We will start diet and advance it as tolerated I will hold off on endoscopy and colonoscopy now until the patient feels stronger but it is needed because the potential colitis and the anemia 05/01/2018 patient is doing better clinically but her white count is higher, last bowel movement and diarrhea, she said that she cannot tolerate colonoscopy at this time and since she is improving she wants to wait If tomorrow she still have diarrhea I recommend obtaining ova and parasite and stool culture
[2018-05-02] MEDS: Ampicillin/Sulbactam Inj 3 GM in Sodium Chloride 0.9% Inj 100 ML IV.SIG SCH ×3 (02:35→13:51)
[2018-05-02] MEDS: Morphine Sulfate Inj 2 MG/ML Vial IV.PUSH PRN ×5 (04:37→22:08)
[2018-05-02 06:48] LABS: Eos # (Auto) 0.1 th/mm3 (0.0-0.4); Eos % (Auto) 0.2 % (0.0-4.0); Hematocrit 28.4 % (35.0-46.0); Lymph # (Auto) 0.7 th/mm3 (1.0-4.8); Lymph % (Auto) 2.3 % (9.0-44.0); Mean Corpuscular HGB Conc 35.2 % (32.0-36.0); Mean Corpuscular Hemoglobin 29.8 pg (27.0-34.0); Mean Corpuscular Volume 84.9 fL (80.0-100.0); Mean Platelet Volume 9.5 fL (7.0-11.0); Mono # (Auto) 1.9 th/mm3 (0.0-0.9); Mono % (Auto) 6.1 % (0.0-8.0); Neut # (Auto) 28.1 th/mm3 (1.8-7.7); Neut % (Auto) 91.4 % (16.0-70.0); Platelet Count 285 th/mm3 (150-450); Red Blood Count 3.35 mil/mm3 (4.00-5.30); Red Cell Distribution Width 14.5 % (11.6-17.2); White Blood Count 30.8 th/mm3 (4.0-11.0)
[2018-05-02 06:52] LABS: Chloride 99 meq/L (98-107); Potassium 3.8 meq/L (3.5-5.1); Sodium 130 meq/L (136-145)
[2018-05-02 07:06] LABS: Anion Gap 13 meq/L (5-15); Blood Urea Nitrogen 11 mg/dL (7-18); Calcium 6.3 mg/dL (8.5-10.1); Carbon Dioxide 17.8 meq/L (21.0-32.0); Glomerular Filtration Rate Greater Than 89 mL/min (>89); Glucose,Random 72 mg/dL (74-106)
[2018-05-02 07:22] LABS: Lymphocytes 5 % (9-44); Monocytes 3 % (0-8)
[2018-05-02 07:27] LABS: Total Protein 5.5 g/dL (6.4-8.2)
--- NOTE | 2018-05-02 07:27 | P.PN ---
Subjective Interval history: She still has some joint pain of hands and knees but maybe a little better today since she was given Prednisone yesterday. No diarrhea. She has soft stool now. Her abdominal pain is much better. No chest pain or shortness of breath. Physical Exam Vital signs: Vital Signs 05/01/18 08:00 05/01/18 09:43 05/01/18 12:00 Temperature 99.6 F 99.4 F Pulse Rate 81 78 Respiratory Rate 17 18 17 Blood Pressure 136/66 151/67 H Pulse Oximetry 97 97 05/01/18 13:29 05/01/18 16:00 05/01/18 17:35 Temperature 99.7 F H Pulse Rate 76 Respiratory Rate 18 16 18 Blood Pressure 110/66 Pulse Oximetry 96 05/01/18 19:15 05/01/18 20:00 05/02/18 00:33 Temperature 99.1 F 98.8 F Pulse Rate 77 82 76 Respiratory Rate 22 21 Blood Pressure 131/63 120/57 L Pulse Oximetry 95 96 05/02/18 04:00 Temperature 99.6 F Pulse Rate 95 H Respiratory Rate 22 Blood Pressure 156/70 H Pulse Oximetry 97 Intake & Output 05/01/18 05/02/18 05/02/18 18:59 06:59 18:59 Intake Total 1160 / 1160 1680 / 1680 1000 / 1000 Output Total 900 / 900 802 / 802 Balance 260 / 260 878 / 878 1000 / 1000 Intake: IV 200 / 200 1200 / 1200 1000 / 1000 NS + KCl 40 mEq Inj 1,000 ML @ 1000 / 1000 1000 / 1000 100 mls/hr IV.CONT .Q10H BALA Rx #:[id number] Unasyn Inj 3 GM In NS Inj 100 200 / 200 200 / 200 ML @ 200 mls/hr IV.SIG Q6H BALA Rx#:[id number] Oral 960 / 960 480 / 480 Output: Urine 900 / 900 800 / 800 Stool 2 / 2 Other: Date of Last Bowel Movement 05/02/18 # Bowel Movements 5 Narrative: Exam: This is a pleasant white female in no distress. HEENT: Pupils equal, EOMs intact, mouth without lesions Neck: No JVD, neck is supple Heart: Regular rate and rhythm without murmurs or gallops Lungs: Clear to auscultation Abdomen: Soft, no masses, only minimal tenderness in epigastric region and lower abdomen today Extremities: pulses palpated, no calf tenderness. She has slight swelling of her knees and wrists but no warmness to touch or redness Neuro: Alert, oriented, normal motor exam, sensation intact - Urinary Catheter Management Indwelling Urethral Catheter Cath placed during this visit: yes Reason for continuing: Acute urinary retention Insertion date: 05/01/18 Insertion time: 06:35 Results - Labs CBC & Chem 7: 05/02/18 05:50 05/02/18 05:50 Laboratory Results - last 24 hr 04/30/18 05/01/18 05/01/18 14:09 05:15 10:30 CBC w Diff WBC RBC Hgb Hct MCV MCH MCHC RDW Plt Count MPV Neut % (Auto) Lymph % (Auto) [place] % (Auto) Eos % (Auto) Baso % (Auto) Neut # (Auto) Lymph # (Auto) [place] # (Auto) Eos # (Auto) Baso # (Auto) Differential Comment Sodium Potassium Chloride Carbon Dioxide Anion Gap BUN Creatinine Estimated GFR Random Glucose Calcium Magnesium 1.3 L Ur Collection Type Cath Urine Color Yellow Urine Clarity Slightly cloudy Urine pH 6.0 Ur Specific [place] 1.025 Urine Protein 100 H Urine Glucose (UA) Negative Urine Ketones 15 H Urine Occult Blood Small H Urine Nitrate Negative Urine Bilirubin Negative Urine Urobilinogen 0.2 Ur Leukocyte Esterase Trace H Urine RBC 0-3 Urine WBC 0-5 Ur Squamous Epith Cells 0-5 Urine Bacteria Rare H Micro UA Comment Cath-culture ind Urine Culture Comments Cath-cult indicated Adenovirus (PCR) Not detected Bordetella holmesii PCR Not detected B. pertussis DNA (PCR) Not detected B. paraper/bronch (PCR) Not detected Human Metapneumovir PCR Not detected Influenza A (RT-PCR) Not detected Influenza A (H1) PCR Not detected Influenza A (H3) PCR Not detected Influenza B (RT-PCR) Not detected Parainfluenza 1 (PCR) Not detected Parainfluenza 2 (PCR) Not detected Parainfluenza 3 (PCR) Not detected Parainfluenza 4 (PCR) Not detected RSV Type A (PCR) Not detected RSV Type B (PCR) Not detected Rhinovirus (PCR) Not detected 05/02/18 05/02/18 05:50 05:50 CBC w Diff Slide review pending WBC 30.8 H RBC 3.35 L Hgb 10.0 L Hct 28.4 L MCV 84.9 MCH 29.8 MCHC 35.2 RDW 14.5 Plt Count 285 MPV 9.5 Neut % (Auto) 91.4 H Lymph % (Auto) 2.3 L [place] % (Auto) 6.1 Eos % (Auto) 0.2 Baso % (Auto) 0.0 Neut # (Auto) 28.1 H Lymph # (Auto) 0.7 L [place] # (Auto) 1.9 H Eos # (Auto) 0.1 Baso # (Auto) 0.0 Differential Comment . Sodium 130 L Potassium 3.8 Chloride 99 Carbon Dioxide 17.8 L Anion Gap 13 BUN 11 Creatinine 0.43 L Estimated GFR Greater than 89 Random Glucose 72 L Calcium 6.3 L* Magnesium Ur Collection Type Urine Color Urine Clarity Urine pH Ur Specific [place] Urine Protein Urine Glucose (UA) Urine Ketones Urine Occult Blood Urine Nitrate Urine Bilirubin Urine Urobilinogen Ur Leukocyte Esterase Urine RBC Urine WBC Ur Squamous Epith Cells Urine Bacteria Micro UA Comment Urine Culture Comments Adenovirus (PCR) Bordetella holmesii PCR B. pertussis DNA (PCR) B. paraper/bronch (PCR) Human Metapneumovir PCR Influenza A (RT-PCR) Influenza A (H1) PCR Influenza A (H3) PCR Influenza B (RT-PCR) Parainfluenza 1 (PCR) Parainfluenza 2 (PCR) Parainfluenza 3 (PCR) Parainfluenza 4 (PCR) RSV Type A (PCR) RSV Type B (PCR) Rhinovirus (PCR) Microbiology 04/29/18 06:10 Blood - Peripheral Aerobic Blood Culture - Preliminary No growth in 2 days 04/29/18 06:10 Blood - Peripheral Anaerobic Blood Culture - Preliminary No growth in 2 days 04/29/18 06:15 Blood - Peripheral Aerobic Blood Culture - Preliminary No growth in 2 days 04/29/18 06:15 Blood - Peripheral Anaerobic Blood Culture - Preliminary No growth in 2 days 04/29/18 07:38 Clean Catch Urine Urine Culture - Final Enterococcus faecalis Laboratory Results - last 72 hr 04/29/18 04/29/18 04/29/18 06:15 06:15 11:30 CBC w Diff Auto diff final WBC 15.9 H RBC 3.70 L Hgb 10.6 L Hct 32.5 L MCV 87.8 MCH 28.6 MCHC 32.5 RDW 13.5 Plt Count 313 MPV 9.1 Neut % (Auto) 85.5 H Lymph % (Auto) 4.3 L [place] % (Auto) 8.5 H Eos % (Auto) 1.6 Baso % (Auto) 0.1 Neut # (Auto) 13.6 H Lymph # (Auto) 0.7 L [place] # (Auto) 1.3 H Eos # (Auto) 0.3 Baso # (Auto) 0.0 WBC Differential . Seg Neuts % (Manual) Band Neuts % (Manual) Lymphocytes % (Manual) Monocytes % (Manual) Myelocytes % (Man) Abs Neuts (Manual) Differential Comment . Platelet Estimate Platelet Morphology Sodium 128 L Potassium 3.8 Chloride 97 L D Carbon Dioxide 19.7 L Anion Gap 11 BUN 6 L Creatinine 0.49 L Estimated GFR Greater than 89 Random Glucose 94 Calcium 7.1 L* D Prot Corrected Calcium 7.8 L Magnesium Total Protein 5.8 L D Lipase 462 H Ur Collection Type Urine Color Urine Clarity Urine pH Ur Specific [place] Urine Protein Urine Glucose (UA) Urine Ketones Urine Occult Blood Urine Nitrate Urine Bilirubin Urine Urobilinogen Ur Leukocyte Esterase Urine RBC Urine WBC Ur Squamous Epith Cells Urine Bacteria Micro UA Comment Urine Culture Comments Stl C.difficile Tox PCR Negative St C. diff Tox Epid 027 Negative Adenovirus (PCR) Bordetella holmesii PCR B. pertussis DNA (PCR) B. paraper/bronch (PCR) Human Metapneumovir PCR Influenza A (RT-PCR) Influenza A (H1) PCR Influenza A (H3) PCR Influenza B (RT-PCR) Parainfluenza 1 (PCR) Parainfluenza 2 (PCR) Parainfluenza 3 (PCR) Parainfluenza 4 (PCR) RSV Type A (PCR) RSV Type B (PCR) Rhinovirus (PCR) 04/30/18 04/30/18 04/30/18 06:02 06:02 14:09 CBC w Diff Auto diff final WBC 17.5 H RBC 3.33 L Hgb 9.7 L Hct 28.8 L MCV 86.5 MCH 29.3 MCHC 33.8 RDW 13.7 Plt Count 237 MPV 8.0 Neut % (Auto) 86.3 H Lymph % (Auto) 3.4 L [place] % (Auto) 9.8 H Eos % (Auto) 0.3 Baso % (Auto) 0.2 Neut # (Auto) 15.1 H Lymph # (Auto) 0.6 L [place] # (Auto) 1.7 H Eos # (Auto) 0.1 Baso # (Auto) 0.0 WBC Differential . Seg Neuts % (Manual) Band Neuts % (Manual) Lymphocytes % (Manual) Monocytes % (Manual) Myelocytes % (Man) Abs Neuts (Manual) Differential Comment . Platelet Estimate Platelet Morphology Sodium 127 L Potassium 3.1 L Chloride 98 Carbon Dioxide 20.5 L Anion Gap 9 BUN 7 Creatinine 0.52 Estimated GFR Greater than 89 Random Glucose 121 H Calcium 6.2 L* D Prot Corrected Calcium 7.1 L* Magnesium Total Protein 5.2 L D Lipase 140 Ur Collection Type Urine Color Urine Clarity Urine pH Ur Specific [place] Urine Protein Urine Glucose (UA) Urine Ketones Urine Occult Blood Urine Nitrate Urine Bilirubin Urine Urobilinogen Ur Leukocyte Esterase Urine RBC Urine WBC Ur Squamous Epith Cells Urine Bacteria Micro UA Comment Urine Culture Comments Stl C.difficile Tox PCR St C. diff Tox Epid 027 Adenovirus (PCR) Not detected Bordetella holmesii PCR Not detected B. pertussis DNA (PCR) Not detected B. paraper/bronch (PCR) Not detected Human Metapneumovir PCR Not detected Influenza A (RT-PCR) Not detected Influenza A (H1) PCR Not detected Influenza A (H3) PCR Not detected Influenza B (RT-PCR) Not detected Parainfluenza 1 (PCR) Not detected Parainfluenza 2 (PCR) Not detected Parainfluenza 3 (PCR) Not detected Parainfluenza 4 (PCR) Not detected RSV Type A (PCR) Not detected RSV Type B (PCR) Not detected Rhinovirus (PCR) Not detected 05/01/18 05/01/18 05/01/18 05:15 05:15 05:15 CBC w Diff Slide review pending WBC 29.1 H D RBC 3.54 L Hgb 10.5 L Hct 30.8 L MCV 87.0 MCH 29.6 MCHC 34.1 RDW 13.8 Plt Count 285 MPV 9.2 Neut % (Auto) 89.9 H Lymph % (Auto) 2.6 L [place] % (Auto) 7.0 Eos % (Auto) 0.4 Baso % (Auto) 0.1 Neut # (Auto) 26.2 H Lymph # (Auto) 0.8 L [place] # (Auto) 2.0 H Eos # (Auto) 0.1 Baso # (Auto) 0.0 WBC Differential Manual diff final Seg Neuts % (Manual) 69 Band Neuts % (Manual) 17 H Lymphocytes % (Manual) 2 L Monocytes % (Manual) 11 H Myelocytes % (Man) 1 H Abs Neuts (Manual) 25.3 H Differential Comment . Platelet Estimate Normal Platelet Morphology Normal Sodium 128 L Potassium 3.8 Chloride 98 Carbon Dioxide 20.0 L Anion Gap 10 BUN 9 Creatinine 0.50 Estimated GFR Greater than 89 Random Glucose 66 L Calcium 6.5 L* Prot Corrected Calcium 7.3 L* Magnesium 1.3 L Total Protein 5.5 L Lipase Ur Collection Type Urine Color Urine Clarity Urine pH Ur Specific [place] Urine Protein Urine Glucose (UA) Urine Ketones Urine Occult Blood Urine Nitrate Urine Bilirubin Urine Urobilinogen Ur Leukocyte Esterase Urine RBC Urine WBC Ur Squamous Epith Cells Urine Bacteria Micro UA Comment Urine Culture Comments Stl C.difficile Tox PCR St C. diff Tox Epid 027 Adenovirus (PCR) Bordetella holmesii PCR B. pertussis DNA (PCR) B. paraper/bronch (PCR) Human Metapneumovir PCR Influenza A (RT-PCR) Influenza A (H1) PCR Influenza A (H3) PCR Influenza B (RT-PCR) Parainfluenza 1 (PCR) Parainfluenza 2 (PCR) Parainfluenza 3 (PCR) Parainfluenza 4 (PCR) RSV Type A (PCR) RSV Type B (PCR) Rhinovirus (PCR) 05/01/18 05/02/18 05/02/18 10:30 05:50 05:50 CBC w Diff Slide review pending WBC 30.8 H RBC 3.35 L Hgb 10.0 L Hct 28.4 L MCV 84.9 MCH 29.8 MCHC 35.2 RDW 14.5 Plt Count 285 MPV 9.5 Neut % (Auto) 91.4 H Lymph % (Auto) 2.3 L [place] % (Auto) 6.1 Eos % (Auto) 0.2 Baso % (Auto) 0.0 Neut # (Auto) 28.1 H Lymph # (Auto) 0.7 L [place] # (Auto) 1.9 H Eos # (Auto) 0.1 Baso # (Auto) 0.0 WBC Differential Seg Neuts % (Manual) Band Neuts % (Manual) Lymphocytes % (Manual) Monocytes % (Manual) Myelocytes % (Man) Abs Neuts (Manual) Differential Comment . Platelet Estimate Platelet Morphology Sodium 130 L Potassium 3.8 Chloride 99 Carbon Dioxide 17.8 L Anion Gap 13 BUN 11 Creatinine 0.43 L Estimated GFR Greater than 89 Random Glucose 72 L Calcium 6.3 L* Prot Corrected Calcium Magnesium Total Protein Lipase Ur Collection Type Cath Urine Color Yellow Urine Clarity Slightly cloudy Urine pH 6.0 Ur Specific [place] 1.025 Urine Protein 100 H Urine Glucose (UA) Negative Urine Ketones 15 H Urine Occult Blood Small H Urine Nitrate Negative Urine Bilirubin Negative Urine Urobilinogen 0.2 Ur Leukocyte Esterase Trace H Urine RBC 0-3 Urine WBC 0-5 Ur Squamous Epith Cells 0-5 Urine Bacteria Rare H Micro UA Comment Cath-culture ind Urine Culture Comments Cath-cult indicated Stl C.difficile Tox PCR St C. diff Tox Epid 027 Adenovirus (PCR) Bordetella holmesii PCR B. pertussis DNA (PCR) B. paraper/bronch (PCR) Human Metapneumovir PCR Influenza A (RT-PCR) Influenza A (H1) PCR Influenza A (H3) PCR Influenza B (RT-PCR) Parainfluenza 1 (PCR) Parainfluenza 2 (PCR) Parainfluenza 3 (PCR) Parainfluenza 4 (PCR) RSV Type A (PCR) RSV Type B (PCR) Rhinovirus (PCR) - Imaging Impressions Knee X-Ray 05/01/18 00:00 CONCLUSION: Chondrocalcinosis, osteoarthritis and large effusion. Knee X-Ray 05/01/18 00:00 CONCLUSION: Tricompartmental osteoarthritis. There is a small associated joint effusion. No acute fracture identified. Assessment and Plan - Assessment (1) Fever Code(s): R50.9 - Fever, unspecified Status: Acute Plan: Her fever has resolved. (2) Elevated lipase Code(s): R74.8 - Abnormal levels of other serum enzymes Status: Acute Plan: Her lipase level is now normal. She likely had some minimal pancreatitis. (3) Acute hyponatremia Code(s): E87.1 - Hypo-osmolality and hyponatremia Status: Acute (4) Acute diarrhea Code(s): R19.7 - Diarrhea, unspecified Status: Acute (5) Inflammatory polyarthropathy of multiple sites Code(s): M06.4 - Inflammatory polyarthropathy Status: Acute (6) Urinary retention Code(s): R33.9 - Retention of urine, unspecified Status: Acute (7) Hypocalcemia Code(s): E83.51 - Hypocalcemia Status: Acute (8) Hyperlipidemia Code(s): E78.5 - Hyperlipidemia, unspecified Status: Chronic (9) Coronary artery disease Code(s): I25.10 - Atherosclerotic heart disease of [place] coronary artery without angina pectoris Status: Chronic (10) Paroxysmal atrial fibrillation Code(s): I48.0 - Paroxysmal atrial fibrillation Status: Chronic (11) Carotid artery plaque Code(s): I65.29 - Occlusion and stenosis of unspecified carotid artery Status : Chronic (12) Pacemaker Code(s): Z95.0 - Presence of cardiac pacemaker Status: Chronic (13) History of mitral valve repair Code(s): Z98.890 - Other specified postprocedural states Status: Chronic (14) Osteoporosis Code(s): M81.0 - Age-related osteoporosis without current pathological fracture Status: Chronic (15) Obstructive sleep apnea Code(s): G47.33 - Obstructive sleep apnea (adult) (pediatric) Status: Chronic (16) Pulmonary hypertension Code(s): I27.20 - Pulmonary hypertension, unspecified Status: Chronic (17) Hypothyroidism Code(s): E03.9 - Hypothyroidism, unspecified Status: Chronic - Plan Plan: She will be maintained on her Eliquis for her for DVT prophylaxis and for her paroxysmal atrial fibrillation. Continue antibiotics. Her WBC is still up even though clinically she feels better today. I am going to order a 2D echo since she has had a prior mitral valve repair since her source of infection increase in WBC is not totally clear. Will see what infectious disease suggests again today when she is seen by them. Repeat CBC, BMP in the morning. Continue [place] for hypocalcemia. Continue on Prednisone 20mg daily for her joint aches to help with inflammation. Continue on [place] for urinary retention.
[2018-05-02] MEDS: Calcium/Vitamin D 250/125 MG Tablet PO SCH ×2 (08:31→22:12)
[2018-05-02] MEDS: predniSONE 20 MG Tablet PO SCH (08:32)
[2018-05-02] MEDS: Magnesium Oxide 400 MG Tablet PO SCH ×2 (08:35→22:15)
[2018-05-02] MEDS: ALPRAZolam 0.25 MG Tablet PO PRN (12:32)
--- NOTE | 2018-05-02 15:48 | P.PNID ---
Subjective Remarks: ID COVERAGE: Notes reviewed. Patient is a 73-year-old female, presented to the hospital for further evaluation of severe diarrhea and abdominal cramping. Back in March towards the last week, patient received Reclast infusion for her osteoporosis. About 2-3 days after that infusion, she developed swelling and redness in her red eye. She went to the emergency room on April 01, and she was given some steroids as well as referral to an seat installer. Her symptoms gradually improved, and about the first week of April she started having some upper respiratory symptoms and some congestion. She went to her primary care physician at that time and she was given a prescription for Z-Kenton which she completed 5 days treatment. About 10 days prior to admission she started developing severe diarrhea, watery , some with mucus, associated with diffuse abdominal pain and abdominal cramping. She was given Flagyl, and stool for C. difficile was tested which came back negative, but it was decided for her to complete a week course of Flagyl. Her symptoms improved a little bit, however 1-2 days prior to admission , her diarrhea came back with a vengeance. She also started having worsening abdominal pain. She felt somewhat chilly but there was no documented fever. The day of admission she had vomiting, and because of her persistent symptoms, and her progressive weakness and poor appetite, she presented to the hospital for further evaluation and treatment. On presentation she had an elevated WBC. Her lipase was elevated at 545. LFTs normal. Her urinalysis did show 6-8 WBC with occasional clumps. C. difficile toxin was negative. CT of the abdomen and pelvis did not show any significant abnormality, nor did it show any bowel wall thickening. Abdominal ultrasound is unremarkable. She initially had some low-grade temps, but her temperature has been increasing and is up to 101.8. Her white count also had gone up to 17.5. GI is evaluating the patient. She is currently on Levaquin and Flagyl. She currently denies any respiratory complaint. She is voiding okay at home. Patient has been with limited activity since she has been sick due to her significant weakness. She has had prior repair of a fracture on the left hip, and she has had previous problem with arthritis in both knees, and due to her immobility, she has been experiencing increased pain specifically worse on the left knee. Infectious disease consultation has been requested to evaluate the patient. Notes reviewed Temperature elevation to 100.6. Had episode of watery diarrhea this morning. Feels extremely fatigued. Feels very weak. Reports joint ache and swelling. Notes abdominal pain proximally 6/10 scale. Has oral thrush. Gets nausea when she tries to eat. Denies headache. Denies chills. Denies shortness of breath. 2D echocardiogram has been ordered. White blood cell count has increased to 30,000. Repeat urine culture has no growth. Blood culture has no growth. Antibiotics: Unasyn Lines: No evidence of infection Past Medical History: CAD (coronary artery disease) Fatty liver Hx of cardiac pacemaker Hyperlipidemia Hypertension Hypothyroidism Normal colonoscopy Osteoporosis Paroxysmal atrial fibrillation Sleep apnea Ulcerative colitis History of appendectomy History of mitral valve repair History of tonsillectomy and adenoidectomy History of total abdominal hysterectomy Status post-operative repair of closed fracture of left hip Allergies/Adverse Reactions: Allergies cephalexin [From Keflex] Allergy (Verified 04/28/18 21:02) Rash codeine Allergy (Verified 04/28/18 21:02) Abdominal Pain mannitol [From Reclast] Allergy (Verified 04/28/18 21:02) Nausea/Vomiting meperidine [From Demerol] Allergy (Verified 04/28/18 21:02) Abdominal Pain water for injection,sterile [From Reclast] Allergy (Verified 04/28/18 21:02) Nausea/Vomiting zoledronic acid [From Reclast] Allergy (Verified 04/28/18 21:02) Nausea/Vomiting Objective Vital Signs 05/01/18 16:00 05/01/18 17:35 05/01/18 19:15 Temperature 99.7 F H 99.1 F Pulse Rate 76 77 Respiratory Rate 16 18 22 Blood Pressure 110/66 131/63 Pulse Oximetry 96 95 05/01/18 20:00 05/02/18 00:33 05/02/18 04:00 Temperature 98.8 F 99.6 F Pulse Rate 82 76 95 H Respiratory Rate 21 22 Blood Pressure 120/57 L 156/70 H Pulse Oximetry 96 97 05/02/18 08:00 05/02/18 09:00 05/02/18 12:00 Temperature 98.8 F 100.6 F H Pulse Rate 85 76 Respiratory Rate 16 18 16 Blood Pressure 120/85 114/58 L Pulse Oximetry 96 96 05/02/18 13:09 Temperature Pulse Rate Respiratory Rate 18 Blood Pressure Pulse Oximetry Intake & Output 05/01/18 05/02/18 05/02/18 18:59 06:59 18:59 Intake Total 1160 / 1160 1680 / 1680 1200 / 1200 Output Total 900 / 900 802 / 802 Balance 260 / 260 878 / 878 1200 / 1200 Intake: IV 200 / 200 1200 / 1200 1200 / 1200 NS + KCl 40 mEq Inj 1,000 ML @ 1000 / 1000 1000 / 1000 100 mls/hr IV.CONT .Q10H BALA Rx #:[id number] Unasyn Inj 3 GM In NS Inj 100 200 / 200 200 / 200 200 / 200 ML @ 200 mls/hr IV.SIG Q6H BALA Rx#:[id number] Oral 960 / 960 480 / 480 Output: Urine 900 / 900 800 / 800 Stool 2 / 2 Other: Date of Last Bowel Movement 05/02/18 # Bowel Movements 5 05/01/18 10:30 Clean Catch Urine Urine Culture - Preliminary No growth in 24 hours 04/29/18 06:10 Blood - Peripheral Aerobic Blood Culture - Preliminary No growth in 3 days 04/29/18 06:10 Blood - Peripheral Anaerobic Blood Culture - Preliminary No growth in 3 days 04/29/18 06:15 Blood - Peripheral Aerobic Blood Culture - Preliminary No growth in 3 days 04/29/18 06:15 Blood - Peripheral Anaerobic Blood Culture - Preliminary No growth in 3 days 05/01/18 20:45 Stool Stool for WBCs - Final Moderate WBC'S 04/29/18 07:38 Clean Catch Urine Urine Culture - Final Enterococcus faecalis Lab - Hematology Results 05/01/18 05/02/18 05:15 05:50 CBC w Diff Slide review pending Slide review pending WBC 29.1 H D 30.8 H RBC 3.54 L 3.35 L Hgb 10.5 L 10.0 L Hct 30.8 L 28.4 L MCV 87.0 84.9 MCH 29.6 29.8 MCHC 34.1 35.2 RDW 13.8 14.5 Plt Count 285 285 MPV 9.2 9.5 Neut % (Auto) 89.9 H 91.4 H Lymph % (Auto) 2.6 L 2.3 L Fergus % (Auto) 7.0 6.1 Eos % (Auto) 0.4 0.2 Baso % (Auto) 0.1 0.0 Neut # (Auto) 26.2 H 28.1 H Lymph # (Auto) 0.8 L 0.7 L Fergus # (Auto) 2.0 H 1.9 H Eos # (Auto) 0.1 0.1 Baso # (Auto) 0.0 0.0 WBC Differential Manual diff final Manual diff final Seg Neuts % (Manual) 69 84 H Band Neuts % (Manual) 17 H 8 H Lymphocytes % (Manual) 2 L 5 L Monocytes % (Manual) 11 H 3 Myelocytes % (Man) 1 H Abs Neuts (Manual) 25.3 H 28.3 H Differential Comment . . Platelet Estimate Normal Platelet Morphology Normal Lab - Chemistry Results 05/01/18 05/01/18 05/02/18 05:15 05:15 05:50 Sodium 128 L 130 L Potassium 3.8 3.8 Chloride 98 99 Carbon Dioxide 20.0 L 17.8 L Anion Gap 10 13 BUN 9 11 Creatinine 0.50 0.43 L Estimated GFR Greater than 89 Greater than 89 Random Glucose 66 L 72 L Calcium 6.5 L* 6.3 L* Prot Corrected Calcium 7.3 L* 7.0 L* Magnesium 1.3 L Total Protein 5.5 L 5.5 L Imaging: ITS Impressions Abdomen Ultrasound 04/29/18 00:00 CONCLUSION: 1. Unremarkable study. Abdomen/Pelvis CT 04/29/18 00:00 CONCLUSION: Gas bubble inside the bladder may be iatrogenic and of uncertain etiology, otherwise unremarkable. Chest X-Ray 04/29/18 00:00 CONCLUSION: 1. No acute cardiopulmonary disease. Knee X-Ray 05/01/18 00:00 CONCLUSION: Tricompartmental osteoarthritis. There is a small associated joint effusion. No acute fracture identified. Physical Exam: GENERAL: No acute distress. Appears chronically ill. SKIN: Warm and dry. HEAD: Atraumatic. Normocephalic. EYES: Pupils equal and round. No scleral icterus. No injection or drainage. ENT: No nasal bleeding or discharge. Positive oral thrush. NECK: Trachea midline. No JVD. CARDIOVASCULAR: Regular rate and rhythm. 1/6 systolic murmur left sternal border. RESPIRATORY: No accessory muscle use. Clear to auscultation. Breath sounds equal bilaterally. CHEST: Pacemaker site appears intact. No evidence of infection. GASTROINTESTINAL: Abdomen soft, non-tender, nondistended. Hepatic and splenic margins not palpable. MUSCULOSKELETAL: Extremities without clubbing, cyanosis. Swelling of the joints. Swelling of the hands and arms and knees. No obvious deformities. NEUROLOGICAL: Awake and alert. No obvious cranial nerve deficits. 1 out of 5 muscle strength in the arms and legs. Normal speech. PSYCHIATRIC: Appropriate mood and affect; normal insight and judgment normal. Assessment and Plan - Plan Impression Febrile illness, etiology? possible sepsis, source? Possible autoimmune disease. Possible inflammatory disease Given the continued diarrhea this could possibly be colitis flare with diffuse inflammatory component. - had elevated lipase on admission, better, could explain some of abdominal pain, possibly diarrhea; no radiologic evidence of pancreatitis - diarrhea, multiple C diff testing have been negative, no bowel wall thickening on CT, better Abdominal pain probably associated with inflammatory condition/colitis. Diarrhea - probable colitis. Polyarthritis, etiology? Oral thrush. Recommendation Stop Unasyn Can vancomycin in light of fever and elevated white blood cell count prior culture with enterococcus in the urine. Obtain PARVIZ, RF, sed rate. Diflucan for oral thrush along with nystatin. Follow temps Follow C/S Follow CBC Monitor progress Spoke with Dr De La Paz. Explained plan to patient the plan of action. Told her she may need colonoscopy. She thinks she is too weak to undergo colonoscopy and thinks that it may make. However she was notified that that may be the one procedure that may help determine her diagnosis.
[2018-05-02] MEDS ORDERED: Vancomycin Consult Pharmacy 1 EACH OTHER SCH (17:00)
[2018-05-02] MEDS: Nystatin Liq 500,000 UNIT/5 ML UDC SWISH-SWAL SCH ×2 (17:36→22:11)
[2018-05-02] MEDS: Lactobacillus Acidophilus/L. Spores Tablet PO SCH (17:36)
[2018-05-02] MEDS: Vancomycin Inj 1,250 MG in Sodium Chlor 0.9% Inj 250 ML IV.SIG SCH (17:39)
[2018-05-02] MEDS: Fluconazole 100 MG Tablet PO SCH (22:17)
--- NOTE | 2018-05-02 22:38 | ECHRPT ---
Indication: POSS SEPSIS, ENDOCARDITIS CONCLUSIONS Normal left ventricular size. Wall thickness is normal. The left ventricular systolic function is mildly reduced with an estimated ejection fraction in the range of 45- 50%. There is abnormal (paradoxical) septal motion consistent with postoperative state. The right ventricle is moderate to severely dilated. A pacemaker wire is noted. The left atrial size is moderately dilated. The right atrial size is moderately dilated. Mitral valve annuloplasty ring is present. Mild mitral valve regurgitation. There is mild to moderate tricuspid valve regurgitation. The estimated pulmonary arterial pressure is 62 mmHg. Mild pulmonary valve regurgitation. BP: / HR: Rhythm: Sinus MEASUREMENTS (Male / Female) Normal Values Technical Quality:Fair 2D ECHO LV Diastolic Diameter PLAX 4.0 cm 4.2 - 5.9 / 3.9 - 5.3 cm LV Systolic Diameter PLAX 3.6 cm IVS Diastolic Thickness 0.6 cm 0.6 - 1.0 / 0.6 - 0.9 cm LVPW Diastolic Thickness 0.7 cm 0.6 - 1.0 / 0.6 - 0.9 cm LV Relative Wall Thickness 0.3 RV Internal Dim ED PLAX 4.3 cm LVOT Diameter 1.9 cm Aortic Root Diameter 2.6 cm M-MODE AV Cusp Separation MM 1.6 cm DOPPLER AV Peak Velocity 131.5 cm/s AV Peak Gradient 6.9 mmHg AV Mean Gradient 3.5 mmHg AV Velocity Time Integral 22.3 cm LVOT Peak Velocity 90.1 cm/s LVOT Peak Gradient 3.2 mmHg LVOT Velocity Time Integral 14.5 cm AV Area Cont Eq vti 1.8 cm AV Area Cont Eq pk 1.9 cm LV E' Lateral Velocity 12.8 cm/s LV E' Septal Velocity 11.5 cm/s TR Peak Velocity 344.0 cm/s TR Peak Gradient 47.3 mmHg Right Atrial Pressure 15.0 mmHg Pulmonary Artery Systolic Pressu 62.3 mmHg Right Ventricular Systolic Press 62.3 mmHg PV Peak Velocity 78.0 cm/s PV Peak Gradient 2.4 mmHg FINDINGS LEFT VENTRICLE Normal left ventricular size. Wall thickness is normal. The left ventricular systolic function is mildly reduced with an estimated ejection fraction in the range of 45- 50%. There is abnormal (paradoxical) septal motion consistent with postoperative state. RIGHT VENTRICLE The right ventricle is moderate to severely dilated. A pacemaker wire is noted. LEFT ATRIUM The left atrial size is moderately dilated. RIGHT ATRIUM The right atrial size is moderately dilated. ATRIAL SEPTUM No atrial level shunt is demonstrated by color flow Doppler interrogation. AORTA The aortic root and proximal ascending aorta are normal in size on limited imaging. MITRAL VALVE Mitral valve annuloplasty ring is present. Mild mitral valve regurgitation. AORTIC VALVE Trileaflet aortic valve. No aortic valve stenosis or regurgitation. TRICUSPID VALVE There is mild to moderate tricuspid valve regurgitation. The estimated pulmonary arterial pressure is 62.3 mmHg. PULMONARY VALVE Mild pulmonary valve regurgitation. VESSELS The inferior vena cava is normal in size. PERICARDIUM No pericardial effusion. Maco Siu MD, FACC (Electronically Signed) Final Date:02 May 2018 22:37
[2018-05-03] MEDS: ALPRAZolam 0.25 MG Tablet PO PRN ×3 (00:08→22:01)
[2018-05-03] MEDS: Morphine Sulfate Inj 2 MG/ML Vial IV.PUSH PRN ×4 (05:11→22:27)
[2018-05-03 05:48] LABS: Baso # (Auto) 0.2 th/mm3 (0.0-0.2); Baso % (Auto) 0.5 % (0.0-2.0); Eos # (Auto) 0.1 th/mm3 (0.0-0.4); Eos % (Auto) 0.4 % (0.0-4.0); Hemoglobin 10.1 gm/dL (11.6-15.3); Lymph # (Auto) 0.9 th/mm3 (1.0-4.8); Lymph % (Auto) 2.9 % (9.0-44.0); Mean Corpuscular HGB Conc 32.5 % (32.0-36.0); Mean Corpuscular Hemoglobin 28.2 pg (27.0-34.0); Mean Platelet Volume 8.5 fL (7.0-11.0); Mono % (Auto) 6.7 % (0.0-8.0); Neut # (Auto) 26.9 th/mm3 (1.8-7.7); Neut % (Auto) 89.5 % (16.0-70.0); Platelet Count 346 th/mm3 (150-450); Red Blood Count 3.56 mil/mm3 (4.00-5.30); Red Cell Distribution Width 14.5 % (11.6-17.2); White Blood Count 30.1 th/mm3 (4.0-11.0)
[2018-05-03 05:58] LABS: Chloride 97 meq/L (98-107); Potassium 3.9 meq/L (3.5-5.1); Sodium 126 meq/L (136-145)
[2018-05-03 06:06] LABS: Lymphocytes 3 % (9-44); Monocytes 6 % (0-8); Myelocytes 1 % (0-0)
[2018-05-03 06:07] LABS: Platelet Estimate Normal (Normal); Platelet Morphology Normal (Normal); RBC Morphology Normal (Normal)
[2018-05-03 06:10] LABS: Anion Gap 11 meq/L (5-15); Blood Urea Nitrogen 13 mg/dL (7-18); Calcium 6.3 mg/dL (8.5-10.1); Carbon Dioxide 17.9 meq/L (21.0-32.0); Glomerular Filtration Rate Greater Than 89 mL/min (>89); Glucose,Random 90 mg/dL (74-106); Magnesium 1.8 mg/dL (1.5-2.5)
[2018-05-03 06:33] LABS: Total Protein 5.4 g/dL (6.4-8.2)
--- NOTE | 2018-05-03 07:53 | P.PN ---
Subjective Interval history: Still has some slight diarrhea. Abdominal pain is improved. Her bilateral knee pain has improved also but still complains of bilateral wrist pain. No shortness of breath. Physical Exam Vital signs: Vital Signs 05/02/18 08:00 05/02/18 09:00 05/02/18 12:00 Temperature 98.8 F 100.6 F H Pulse Rate 85 76 Respiratory Rate 16 18 16 Blood Pressure 120/85 114/58 L Pulse Oximetry 96 96 05/02/18 13:09 05/02/18 16:00 05/02/18 20:00 Temperature 98.4 F 99.3 F Pulse Rate 80 75 Respiratory Rate 18 17 16 Blood Pressure 117/60 111/64 Pulse Oximetry 98 96 05/03/18 00:00 Temperature 96.0 F L Pulse Rate 79 Respiratory Rate 16 Blood Pressure 117/58 L Pulse Oximetry 100 Intake & Output 05/02/18 05/03/18 05/03/18 18:59 06:59 18:59 Intake Total 3280 / 3280 480 / 480 262.5 / 262.5 Output Total 950 / 950 300 / 300 Balance 2330 / 2330 180 / 180 262.5 / 262.5 Intake: IV 2200 / 2200 262.5 / 262.5 NS + KCl 40 mEq Inj 1,000 ML @ 2000 / 2000 60 mls/hr IV.CONT .[id number] BALA Rx#:[id number] Unasyn Inj 3 GM In NS Inj 100 200 / 200 ML @ 200 mls/hr IV.SIG Q6H BALA Rx#:[id number] Vancomycin Inj 1,250 MG In NS 262.5 / 262.5 Inj 250 ML @ 250 mls/hr IV.SIG Q18H BALA Rx#:[id number] Oral 1080 / 1080 480 / 480 Output: Urine 950 / 950 300 / 300 Other: # Bowel Movements 2 2 Narrative: Exam: This is a pleasant white female in no distress. HEENT: Pupils equal, EOMs intact, mouth without lesions Neck: No JVD, neck is supple Heart: Regular rate and rhythm without murmurs or gallops Lungs: Clear to auscultation Abdomen: Soft, no masses, only very minimal tenderness in epigastric region and lower abdomen today Extremities: pulses palpated, no calf tenderness. She has slight swelling of her knees but no warmness to touch and much less soreness with movement. She however has quite a bit of discomfort over both wrists and pain on motion with just slight warmness. Neuro: Alert, oriented, normal motor exam, sensation intact - Urinary Catheter Management Indwelling Urethral Catheter Cath placed during this visit: yes Reason for continuing: Acute urinary retention Insertion date: 05/02/18 Insertion time: 06:35 Results - Labs CBC & Chem 7: 05/03/18 05:20 05/03/18 05:20 Laboratory Results - last 24 hr 05/02/18 05/02/18 05/03/18 16:30 16:30 05:20 CBC w Diff Slide review pending WBC 30.1 H RBC 3.56 L Hgb 10.1 L Hct 31.0 L MCV 87.0 MCH 28.2 MCHC 32.5 RDW 14.5 Plt Count 346 MPV 8.5 Neut % (Auto) 89.5 H Lymph % (Auto) 2.9 L [place] % (Auto) 6.7 Eos % (Auto) 0.4 Baso % (Auto) 0.5 Neut # (Auto) 26.9 H Lymph # (Auto) 0.9 L [place] # (Auto) 2.0 H Eos # (Auto) 0.1 Baso # (Auto) 0.2 WBC Differential Manual diff final Seg Neuts % (Manual) 73 H Band Neuts % (Manual) 17 H Lymphocytes % (Manual) 3 L Monocytes % (Manual) 6 Myelocytes % (Man) 1 H Abs Neuts (Manual) 27.4 H Differential Comment . Platelet Estimate Normal Platelet Morphology Normal RBC Morphology Normal ESR 64 H Sodium Potassium Chloride Carbon Dioxide Anion Gap BUN Creatinine Estimated GFR Random Glucose Calcium Prot Corrected Calcium Magnesium Total Protein Rheumatoid Factor Scrn Negative Rheumatoid Factor Titer Not Reportable 05/03/18 05:20 CBC w Diff WBC RBC Hgb Hct MCV MCH MCHC RDW Plt Count MPV Neut % (Auto) Lymph % (Auto) [place] % (Auto) Eos % (Auto) Baso % (Auto) Neut # (Auto) Lymph # (Auto) [place] # (Auto) Eos # (Auto) Baso # (Auto) WBC Differential Seg Neuts % (Manual) Band Neuts % (Manual) Lymphocytes % (Manual) Monocytes % (Manual) Myelocytes % (Man) Abs Neuts (Manual) Differential Comment Platelet Estimate Platelet Morphology RBC Morphology ESR Sodium 126 L Potassium 3.9 Chloride 97 L Carbon Dioxide 17.9 L Anion Gap 11 BUN 13 Creatinine 0.43 L Estimated GFR Greater than 89 Random Glucose 90 Calcium 6.3 L* Prot Corrected Calcium 7.1 L* Magnesium 1.8 Total Protein 5.4 L Rheumatoid Factor Scrn Rheumatoid Factor Titer Microbiology 05/01/18 10:30 Clean Catch Urine Urine Culture - Preliminary No growth in 24 hours 04/29/18 06:10 Blood - Peripheral Aerobic Blood Culture - Preliminary No growth in 3 days 04/29/18 06:10 Blood - Peripheral Anaerobic Blood Culture - Preliminary No growth in 3 days 04/29/18 06:15 Blood - Peripheral Aerobic Blood Culture - Preliminary No growth in 3 days 04/29/18 06:15 Blood - Peripheral Anaerobic Blood Culture - Preliminary No growth in 3 days 05/01/18 20:45 Stool Stool for WBCs - Final Moderate WBC'S Laboratory Results - last 48 hr 04/30/18 05/01/18 05/01/18 14:09 05:15 10:30 CBC w Diff WBC RBC Hgb Hct MCV MCH MCHC RDW Plt Count MPV Neut % (Auto) Lymph % (Auto) [place] % (Auto) Eos % (Auto) Baso % (Auto) Neut # (Auto) Lymph # (Auto) [place] # (Auto) Eos # (Auto) Baso # (Auto) WBC Differential Seg Neuts % (Manual) Band Neuts % (Manual) Lymphocytes % (Manual) Monocytes % (Manual) Myelocytes % (Man) Abs Neuts (Manual) Differential Comment Platelet Estimate Platelet Morphology RBC Morphology ESR Sodium Potassium Chloride Carbon Dioxide Anion Gap BUN Creatinine Estimated GFR Random Glucose Calcium Prot Corrected Calcium Magnesium 1.3 L Total Protein Ur Collection Type Cath Urine Color Yellow Urine Clarity Slightly cloudy Urine pH 6.0 Ur Specific [place] 1.025 Urine Protein 100 H Urine Glucose (UA) Negative Urine Ketones 15 H Urine Occult Blood Small H Urine Nitrate Negative Urine Bilirubin Negative Urine Urobilinogen 0.2 Ur Leukocyte Esterase Trace H Urine RBC 0-3 Urine WBC 0-5 Ur Squamous Epith Cells 0-5 Urine Bacteria Rare H Micro UA Comment Cath-culture ind Urine Culture Comments Cath-cult indicated Rheumatoid Factor Scrn Rheumatoid Factor Titer Adenovirus (PCR) Not detected Bordetella holmesii PCR Not detected B. pertussis DNA (PCR) Not detected B. paraper/bronch (PCR) Not detected Human Metapneumovir PCR Not detected Influenza A (RT-PCR) Not detected Influenza A (H1) PCR Not detected Influenza A (H3) PCR Not detected Influenza B (RT-PCR) Not detected Parainfluenza 1 (PCR) Not detected Parainfluenza 2 (PCR) Not detected Parainfluenza 3 (PCR) Not detected Parainfluenza 4 (PCR) Not detected RSV Type A (PCR) Not detected RSV Type B (PCR) Not detected Rhinovirus (PCR) Not detected 05/02/18 05/02/18 05/02/18 05:50 05:50 16:30 CBC w Diff Slide review pending WBC 30.8 H RBC 3.35 L Hgb 10.0 L Hct 28.4 L MCV 84.9 MCH 29.8 MCHC 35.2 RDW 14.5 Plt Count 285 MPV 9.5 Neut % (Auto) 91.4 H Lymph % (Auto) 2.3 L [place] % (Auto) 6.1 Eos % (Auto) 0.2 Baso % (Auto) 0.0 Neut # (Auto) 28.1 H Lymph # (Auto) 0.7 L [place] # (Auto) 1.9 H Eos # (Auto) 0.1 Baso # (Auto) 0.0 WBC Differential Manual diff final Seg Neuts % (Manual) 84 H Band Neuts % (Manual) 8 H Lymphocytes % (Manual) 5 L Monocytes % (Manual) 3 Myelocytes % (Man) Abs Neuts (Manual) 28.3 H Differential Comment . Platelet Estimate Platelet Morphology RBC Morphology ESR 64 H Sodium 130 L Potassium 3.8 Chloride 99 Carbon Dioxide 17.8 L Anion Gap 13 BUN 11 Creatinine 0.43 L Estimated GFR Greater than 89 Random Glucose 72 L Calcium 6.3 L* Prot Corrected Calcium 7.0 L* Magnesium Total Protein 5.5 L Ur Collection Type Urine Color Urine Clarity Urine pH Ur Specific [place] Urine Protein Urine Glucose (UA) Urine Ketones Urine Occult Blood Urine Nitrate Urine Bilirubin Urine Urobilinogen Ur Leukocyte Esterase Urine RBC Urine WBC Ur Squamous Epith Cells Urine Bacteria Micro UA Comment Urine Culture Comments Rheumatoid Factor Scrn Rheumatoid Factor Titer Adenovirus (PCR) Bordetella holmesii PCR B. pertussis DNA (PCR) B. paraper/bronch (PCR) Human Metapneumovir PCR Influenza A (RT-PCR) Influenza A (H1) PCR Influenza A (H3) PCR Influenza B (RT-PCR) Parainfluenza 1 (PCR) Parainfluenza 2 (PCR) Parainfluenza 3 (PCR) Parainfluenza 4 (PCR) RSV Type A (PCR) RSV Type B (PCR) Rhinovirus (PCR) 05/02/18 05/03/18 05/03/18 16:30 05:20 05:20 CBC w Diff Slide review pending WBC 30.1 H RBC 3.56 L Hgb 10.1 L Hct 31.0 L MCV 87.0 MCH 28.2 MCHC 32.5 RDW 14.5 Plt Count 346 MPV 8.5 Neut % (Auto) 89.5 H Lymph % (Auto) 2.9 L [place] % (Auto) 6.7 Eos % (Auto) 0.4 Baso % (Auto) 0.5 Neut # (Auto) 26.9 H Lymph # (Auto) 0.9 L [place] # (Auto) 2.0 H Eos # (Auto) 0.1 Baso # (Auto) 0.2 WBC Differential Manual diff final Seg Neuts % (Manual) 73 H Band Neuts % (Manual) 17 H Lymphocytes % (Manual) 3 L Monocytes % (Manual) 6 Myelocytes % (Man) 1 H Abs Neuts (Manual) 27.4 H Differential Comment . Platelet Estimate Normal Platelet Morphology Normal RBC Morphology Normal ESR Sodium 126 L Potassium 3.9 Chloride 97 L Carbon Dioxide 17.9 L Anion Gap 11 BUN 13 Creatinine 0.43 L Estimated GFR Greater than 89 Random Glucose 90 Calcium 6.3 L* Prot Corrected Calcium 7.1 L* Magnesium 1.8 Total Protein 5.4 L Ur Collection Type Urine Color Urine Clarity Urine pH Ur Specific [place] Urine Protein Urine Glucose (UA) Urine Ketones Urine Occult Blood Urine Nitrate Urine Bilirubin Urine Urobilinogen Ur Leukocyte Esterase Urine RBC Urine WBC Ur Squamous Epith Cells Urine Bacteria Micro UA Comment Urine Culture Comments Rheumatoid Factor Scrn Negative Rheumatoid Factor Titer Not Reportable Adenovirus (PCR) Bordetella holmesii PCR B. pertussis DNA (PCR) B. paraper/bronch (PCR) Human Metapneumovir PCR Influenza A (RT-PCR) Influenza A (H1) PCR Influenza A (H3) PCR Influenza B (RT-PCR) Parainfluenza 1 (PCR) Parainfluenza 2 (PCR) Parainfluenza 3 (PCR) Parainfluenza 4 (PCR) RSV Type A (PCR) RSV Type B (PCR) Rhinovirus (PCR) - Imaging Abdomen Ultrasound 04/29/18 00:00 CONCLUSION: 1. Unremarkable study. Abdomen/Pelvis CT 04/29/18 00:00 CONCLUSION: Gas bubble inside the bladder may be iatrogenic and of uncertain etiology, otherwise unremarkable. Chest X-Ray 04/29/18 00:00 CONCLUSION: 1. No acute cardiopulmonary disease. Knee X-Ray 05/01/18 00:00 CONCLUSION: Chondrocalcinosis, osteoarthritis and large effusion. Knee X-Ray 05/01/18 00:00 CONCLUSION: Tricompartmental osteoarthritis. There is a small associated joint effusion. No acute fracture identified. 2D echo showed no evidence of endocarditis. Assessment and Plan - Assessment (1) Fever Code(s): R50.9 - Fever, unspecified Status: Acute (2) Elevated lipase Code(s): R74.8 - Abnormal levels of other serum enzymes Status: Acute Plan: Her lipase level is now normal. She likely had some minimal pancreatitis. (3) Acute hyponatremia Code(s): E87.1 - Hypo-osmolality and hyponatremia Status: Acute (4) Acute diarrhea Code(s): R19.7 - Diarrhea, unspecified Status: Acute (5) Inflammatory polyarthropathy of multiple sites Code(s): M06.4 - Inflammatory polyarthropathy Status: Acute (6) Urinary retention Code(s): R33.9 - Retention of urine, unspecified Status: Acute (7) Hypocalcemia Code(s): E83.51 - Hypocalcemia Status: Acute (8) Hyperlipidemia Code(s): E78.5 - Hyperlipidemia, unspecified Status: Chronic (9) Coronary artery disease Code(s): I25.10 - Atherosclerotic heart disease of [place] coronary artery without angina pectoris Status: Chronic (10) Paroxysmal atrial fibrillation Code(s): I48.0 - Paroxysmal atrial fibrillation Status: Chronic (11) Carotid artery plaque Code(s): I65.29 - Occlusion and stenosis of unspecified carotid artery Status : Chronic (12) Pacemaker Code(s): Z95.0 - Presence of cardiac pacemaker Status: Chronic (13) History of mitral valve repair Code(s): Z98.890 - Other specified postprocedural states Status: Chronic (14) Osteoporosis Code(s): M81.0 - Age-related osteoporosis without current pathological fracture Status: Chronic (15) Obstructive sleep apnea Code(s): G47.33 - Obstructive sleep apnea (adult) (pediatric) Status: Chronic (16) Pulmonary hypertension Code(s): I27.20 - Pulmonary hypertension, unspecified Status: Chronic (17) Hypothyroidism Code(s): E03.9 - Hypothyroidism, unspecified Status: Chronic - Plan Plan: She will be maintained on her Eliquis for her for DVT prophylaxis and for her paroxysmal atrial fibrillation. Continue antibiotics. Her WBC is still up even though clinically she feels better today. Repeat CBC, BMP in the morning. Continue [place] for hypocalcemia. Increase Prednisone to 30mg daily for her joint aches to help with inflammation. Continue on Garcia for urinary retention. I did talk with her about reconsidering doing a colonoscopy because of our concern that she could have inflammatory bowel disease also. She hasn't decided yet whether she is ready to do it right now. I will consult nephrology for her persistent hyponatremia.
[2018-05-03] MEDS: Nystatin Liq 500,000 UNIT/5 ML UDC SWISH-SWAL SCH ×4 (08:56→21:48)
[2018-05-03] MEDS: Lactobacillus Acidophilus/L. Spores Tablet PO SCH ×3 (08:57→17:48)
[2018-05-03] MEDS: Fluconazole 100 MG Tablet PO SCH (08:58)
[2018-05-03] MEDS: Calcium/Vitamin D 250/125 MG Tablet PO SCH ×2 (08:59→21:45)
[2018-05-03] MEDS: Magnesium Oxide 400 MG Tablet PO SCH ×2 (08:59→21:45)
[2018-05-03] MEDS ORDERED: predniSONE 10 MG Tablet PO SCH (09:00)
[2018-05-03] MEDS: predniSONE 20 MG Tablet PO SCH (09:07)
[2018-05-03] MEDS: Vancomycin Inj 1,250 MG in Sodium Chlor 0.9% Inj 250 ML IV.SIG SCH (11:52)
--- NOTE | 2018-05-03 15:52 | P.PNID ---
Subjective Remarks: ID COVERAGE: Notes reviewed. Patient is a 73-year-old female, presented to the hospital for further evaluation of severe diarrhea and abdominal cramping. Back in March towards the last week, patient received Reclast infusion for her osteoporosis. About 2-3 days after that infusion, she developed swelling and redness in her red eye. She went to the emergency room on April 01, and she was given some steroids as well as referral to an journal entry audit clerk. Her symptoms gradually improved, and about the first week of April she started having some upper respiratory symptoms and some congestion. She went to her primary care physician at that time and she was given a prescription for Z-[place] which she completed 5 days treatment. About 10 days prior to admission she started developing severe diarrhea, watery , some with mucus, associated with diffuse abdominal pain and abdominal cramping. She was given Flagyl, and stool for C. difficile was tested which came back negative, but it was decided for her to complete a week course of Flagyl. Her symptoms improved a little bit, however 1-2 days prior to admission , her diarrhea came back with a vengeance. She also started having worsening abdominal pain. She felt somewhat chilly but there was no documented fever. The day of admission she had vomiting, and because of her persistent symptoms, and her progressive weakness and poor appetite, she presented to the hospital for further evaluation and treatment. On presentation she had an elevated WBC. Her lipase was elevated at 545. LFTs normal. Her urinalysis did show 6-8 WBC with occasional clumps. C. difficile toxin was negative. CT of the abdomen and pelvis did not show any significant abnormality, nor did it show any bowel wall thickening. Abdominal ultrasound is unremarkable. She initially had some low-grade temps, but her temperature has been increasing and is up to 101.8. Her white count also had gone up to 17.5. GI is evaluating the patient. She is currently on Levaquin and Flagyl. She currently denies any respiratory complaint. She is voiding okay at home. Patient has been with limited activity since she has been sick due to her significant weakness. She has had prior repair of a fracture on the left hip, and she has had previous problem with arthritis in both knees, and due to her immobility, she has been experiencing increased pain specifically worse on the left knee. Infectious disease consultation has been requested to evaluate the patient. Patient's son and daughter in law notes that she developed bilateral eye pain along with flu like symptoms after she got the dose of Reclast. Afebrile. Feels stronger. No diarrhea today. Feels less fatigued. Still has joint pain and swelling. difficulty completely closing fist. No abdominal pain currently. Has oral thrush. Ate some yogurt today. Denies headache. Denies chills. Denies shortness of breath. 2D echocardiogram has been ordered. White blood cell count is elevated. Repeat urine culture has no growth. Blood culture has no growth. Antibiotics: Vancomycin. Diflucan. Lines: No evidence of infection Past Medical History: CAD (coronary artery disease) Fatty liver Hx of cardiac pacemaker Hyperlipidemia Hypertension Hypothyroidism Normal colonoscopy Osteoporosis Paroxysmal atrial fibrillation Sleep apnea Ulcerative colitis History of appendectomy History of mitral valve repair History of tonsillectomy and adenoidectomy History of total abdominal hysterectomy Status post-operative repair of closed fracture of left hip Allergies/Adverse Reactions: Allergies cephalexin [From Keflex] Allergy (Verified 04/28/18 21:02) Rash codeine Allergy (Verified 04/28/18 21:02) Abdominal Pain mannitol [From Reclast] Allergy (Verified 04/28/18 21:02) Nausea/Vomiting meperidine [From Demerol] Allergy (Verified 04/28/18 21:02) Abdominal Pain water for injection,sterile [From Reclast] Allergy (Verified 04/28/18 21:02) Nausea/Vomiting zoledronic acid [From Reclast] Allergy (Verified 04/28/18 21:02) Nausea/Vomiting Objective Vital Signs 05/02/18 16:00 05/02/18 20:00 05/03/18 00:00 Temperature 98.4 F 99.3 F 96.0 F L Pulse Rate 80 75 79 Respiratory Rate 17 16 16 Blood Pressure 117/60 111/64 117/58 L Pulse Oximetry 98 96 100 05/03/18 07:00 05/03/18 08:00 05/03/18 09:03 Temperature 98.8 F Pulse Rate 117 H Respiratory Rate 18 16 18 Blood Pressure 136/73 Pulse Oximetry 97 05/03/18 12:00 Temperature 98.7 F Pulse Rate 75 Respiratory Rate 16 Blood Pressure 108/65 Pulse Oximetry 96 Intake & Output 05/02/18 05/03/18 05/03/18 18:59 06:59 18:59 Intake Total 3280 / 3280 480 / 480 525.0 / 525.0 Output Total 950 / 950 300 / 300 Balance 2330 / 2330 180 / 180 525.0 / 525.0 Intake: IV 2200 / 2200 525.0 / 525.0 NS + KCl 40 mEq Inj 1,000 ML @ 2000 / 2000 60 mls/hr IV.CONT .[id number] BALA Rx#:[id number] Unasyn Inj 3 GM In NS Inj 100 200 / 200 ML @ 200 mls/hr IV.SIG Q6H BALA Rx#:[id number] Vancomycin Inj 1,250 MG In NS 525.0 / 525.0 Inj 250 ML @ 250 mls/hr IV.SIG Q18H BALA Rx#:[id number] Oral 1080 / 1080 480 / 480 Output: Urine 950 / 950 300 / 300 Other: Date of Last Bowel Movement 05/02/18 # Bowel Movements 2 2 04/29/18 06:10 Blood - Peripheral Aerobic Blood Culture - Preliminary No growth in 4 days 04/29/18 06:10 Blood - Peripheral Anaerobic Blood Culture - Preliminary No growth in 4 days 04/29/18 06:15 Blood - Peripheral Aerobic Blood Culture - Preliminary No growth in 4 days 04/29/18 06:15 Blood - Peripheral Anaerobic Blood Culture - Preliminary No growth in 4 days 05/01/18 10:30 Clean Catch Urine Urine Culture - Final No growth in 48 hours 05/01/18 20:45 Stool Stool for WBCs - Final Moderate WBC'S 04/29/18 07:38 Clean Catch Urine Urine Culture - Final Enterococcus faecalis Lab - Hematology Results 05/02/18 05/02/18 05/03/18 05:50 16:30 05:20 CBC w Diff Slide review pending Slide review pending WBC 30.8 H 30.1 H RBC 3.35 L 3.56 L Hgb 10.0 L 10.1 L Hct 28.4 L 31.0 L MCV 84.9 87.0 MCH 29.8 28.2 MCHC 35.2 32.5 RDW 14.5 14.5 Plt Count 285 346 MPV 9.5 8.5 Neut % (Auto) 91.4 H 89.5 H Lymph % (Auto) 2.3 L 2.9 L [place] % (Auto) 6.1 6.7 Eos % (Auto) 0.2 0.4 Baso % (Auto) 0.0 0.5 Neut # (Auto) 28.1 H 26.9 H Lymph # (Auto) 0.7 L 0.9 L [place] # (Auto) 1.9 H 2.0 H Eos # (Auto) 0.1 0.1 Baso # (Auto) 0.0 0.2 WBC Differential Manual diff final Manual diff final Seg Neuts % (Manual) 84 H 73 H Band Neuts % (Manual) 8 H 17 H Lymphocytes % (Manual) 5 L 3 L Monocytes % (Manual) 3 6 Myelocytes % (Man) 1 H Abs Neuts (Manual) 28.3 H 27.4 H Differential Comment . . Platelet Estimate Normal Platelet Morphology Normal RBC Morphology Normal ESR 64 H Lab - Chemistry Results 05/02/18 05/03/18 05/03/18 05:50 05:20 14:12 Sodium 130 L 126 L Potassium 3.8 3.9 Chloride 99 97 L Carbon Dioxide 17.8 L 17.9 L Anion Gap 13 11 BUN 11 13 Creatinine 0.43 L 0.43 L Estimated GFR Greater than 89 Greater than 89 Random Glucose 72 L 90 Lactic Acid 1.2 Calcium 6.3 L* 6.3 L* Prot Corrected Calcium 7.0 L* 7.1 L* Magnesium 1.8 Total Protein 5.5 L 5.4 L Imaging: ITS Impressions Abdomen Ultrasound 04/29/18 00:00 CONCLUSION: 1. Unremarkable study. Abdomen/Pelvis CT 04/29/18 00:00 CONCLUSION: Gas bubble inside the bladder may be iatrogenic and of uncertain etiology, otherwise unremarkable. Chest X-Ray 04/29/18 00:00 CONCLUSION: 1. No acute cardiopulmonary disease. Knee X-Ray 05/01/18 00:00 CONCLUSION: Tricompartmental osteoarthritis. There is a small associated joint effusion. No acute fracture identified. Physical Exam: GENERAL: No acute distress. Appears chronically ill. SKIN: Warm and dry. HEAD: Atraumatic. Normocephalic. EYES: Pupils equal and round. No scleral icterus. No injection or drainage. ENT: No nasal bleeding or discharge. Positive oral thrush. NECK: Trachea midline. No JVD. CARDIOVASCULAR: Regular rate and rhythm. 1/6 systolic murmur left sternal border. RESPIRATORY: No accessory muscle use. Clear to auscultation. Breath sounds equal. CHEST: Pacemaker site appears intact. No evidence of infection. GASTROINTESTINAL: Abdomen soft, non-tender, nondistended. Hepatic and splenic margins not palpable. MUSCULOSKELETAL: Extremities without clubbing, cyanosis. Swelling of the joints. Swelling of the hands and arms and knees. No obvious deformities. NEUROLOGICAL: Awake and alert. No obvious cranial nerve deficits. 1 out of 5 muscle strength in the arms and legs. Normal speech. PSYCHIATRIC: Appropriate mood and affect; normal insight and judgment normal. Assessment and Plan - Plan Impression Febrile illness, etiology? possible sepsis, source? Possible autoimmune disease. Possible inflammatory disease set off by Reclast. Given the continued diarrhea this could possibly be colitis flare with diffuse inflammatory component. - had elevated lipase on admission, better, could explain some of abdominal pain, possibly diarrhea; no radiologic evidence of pancreatitis - diarrhea, multiple C diff testing have been negative, no bowel wall thickening on CT, better Abdominal pain probably associated with inflammatory condition/colitis. Diarrhea - probable colitis. Polyarthritis, etiology? Probably related to Infusion of Reclast. Oral thrush. Recommendation Continue vancomycin in light of fever and elevated white blood cell count prior culture with enterococcus in the urine. - can stop it tomorrow if no positive culture. Diflucan for oral thrush along with nystatin. Follow temps Follow C/S Follow CBC Monitor progress Explained plan to patient the plan of action. Told her she may need colonoscopy. She thinks she is too weak to undergo colonoscopy and thinks that it may make her worse. However she was notified that that may be the one procedure that may help determine her diagnosis. However she appears to be better today. PT to help with exercises/ambulation.
--- NOTE | 2018-05-03 16:42 | MB ---
cc: Ally Canela MD DATE: 05/03/2018 REASON FOR CONSULTATION: Hyponatremia, for evaluation. HISTORY OF PRESENT ILLNESS: This is a very pleasant 73-year-old female with past medical history of ischemic heart disease, history of atrial fibrillation, hyperlipidemia, hypertension, and hypothyroidism, who was admitted with vomiting, diarrhea and abdominal pain. I was called to see the patient because of low sodium level. The patient has a chronic history of hyponatremia and according to the patient, she usually runs in the range of 126-128 and this time, she came with a sodium of 121. It was improved and it went up to 130 and now is 126 today. The patient has this nausea, vomiting and diarrhea going on for a few days before she came to the hospital and she was not eating well. Her appetite usually is not very good, but she still eats a reasonable amount. She denies drinking excessive fluid. In the hospital, it was found that she had slightly elevated lipase levels and GI was consulted. Also, she was found to have urinary tract infection with Enterococcus and infectious disease has been consulted. PAST MEDICAL HISTORY: Hypertension, ischemic heart disease, hypothyroidism, atrial fibrillation, and chronic hyponatremia. PAST SURGICAL HISTORY: Tonsillectomy, appendicectomy, mitral valve repair, and left hip open reduction and internal fixation. REVIEW OF SYSTEMS: The patient has generalized weakness, feeling tired. She has just nausea, vomiting, abdominal cramping and loose bowel motions going on for some time now which is improving. Her appetite is also improving. She denies any history of fever. Denies drinking excessive fluid. No dysuria or hematuria. SOCIAL HISTORY: The patient is . There is no history of smoking or heavy alcoholism. FAMILY HISTORY: Noncontributory. ALLERGIES: SHE IS ALLERGIC TO CEPHALEXIN, CODEINE, MANNITOL AND MEPERIDINE. MEDICATIONS: Currently, she is on following medications: 1. Tylenol. 2. Xanax. 3. Eliquis 2.5 mg b.i.d. 4. Lipitor 40 mg daily. 5. Os-Terence 1 tablet b.i.d. 6. Pepcid 20 mg b.i.d. 7. Diflucan 100 mg daily. 8. Lactinex 1 tablet t.i.d. 9. Synthroid 25 mcg daily. 10. Magnesium oxide 400 mg b.i.d. 11. Morphine as needed. 12. Zofran as needed. 13. She is getting IV fluid with potassium chloride, normal saline at 60 an hour. 14. Prednisone 40 mg once a day. 15. Sotalol 40 mg every 12 hours. 15. Vancomycin every 18 hours. PHYSICAL EXAMINATION: GENERAL: Patient is awake, alert. She is not in acute distress. VITAL SIGNS: Her last blood pressure is 136/73, temperature is 98.8, oxygen saturation 97%. HEENT: Pupils are mid constricted. Nonicteric sclerae. Conjunctivae are pale. NECK: Supple. JVD is not elevated. LUNGS: The patient has bilateral good air entry with occasional wheezing. HEART: S1, S2. Regular rate and rhythm. ABDOMEN: Soft and lax. There is no tenderness, distended. Bowel sounds positive. EXTREMITIES: There is no pedal edema. LABORATORY INVESTIGATIONS: White blood cell count 30.1, hemoglobin 10.1, platelet count of 346, neutrophils 89.5%. Sodium is 126, potassium 3.9, chloride 97, bicarbonate 17.9 with a BUN of 13 and creatinine of 0.43. Calcium corrected to 7.1. Magnesium is 1.8, which was 1.3. Total protein is 5.4. Urinalysis showing specific gravity of 1.005 on admission and now is 1.025; protein 100; 6-8 WBC on admission and now 0-5. Urine culture showing Enterococcus. C. difficile negative. Rheumatoid factor negative. PARVIZ screen was also negative. IMAGING STUDIES: The patient had CT scan of the abdomen and pelvis that was done which shows that she has a gas bubble inside the bladder ,may be iatrogenic otherwise unremarkable. No evidence of sepsis formation. Also, has ultrasound of the abdomen done, which was unremarkable and chest x-ray was done, which shows no acute cardiopulmonary disease. ASSESSMENT AND PLAN: 1. Hyponatremia. 2. Electrolyte imbalance with low potassium and low calcium and low magnesium. 3. Metabolic acidosis. 4. Urinary tract infection. 5. Leukocytosis. 6. Anemia. 7. Hypothyroidism. The patient has recurrent low sodium. Most likely it is nutritional with decreased oral intake. I will check the urine osmolality and also get the urine potassium and I will put her on oral sodium chloride tablets, which will compensate for her decreased oral intake. I will put on 1 gram b.i.d. and also put her on sodium bicarbonate twice a day, which will help with the acidosis and also help some extent with the sodium level. Discussed in detail with the patient and the daughter at the bedside about intake of the salt and fluid. I will also get the TSH level since it is not done. Thank you for the consultation. I will follow the patient while he is in the hospital. MD FLORENCIA Cao/LOVE , 04:00 PM , 04:14 PM
[2018-05-03] MEDS: Sodium Chloride 1 GM Tablet PO SCH (21:45)
[2018-05-03] MEDS: Famotidine 20 MG Tablet PO SCH (21:45)
[2018-05-04] MEDS: Morphine Sulfate Inj 2 MG/ML Vial IV.PUSH PRN ×4 (01:57→21:59)
[2018-05-04] MEDS: Vancomycin Inj 1,250 MG in Sodium Chlor 0.9% Inj 250 ML IV.SIG SCH (05:08)
[2018-05-04 06:26] LABS: Baso # (Auto) 0.2 th/mm3 (0.0-0.2); Baso % (Auto) 0.8 % (0.0-2.0); Eos % (Auto) 0.1 % (0.0-4.0); Hematocrit 30.7 % (35.0-46.0); Lymph # (Auto) 0.7 th/mm3 (1.0-4.8); Lymph % (Auto) 2.5 % (9.0-44.0); Mean Corpuscular HGB Conc 32.7 % (32.0-36.0); Mean Corpuscular Hemoglobin 28.4 pg (27.0-34.0); Mean Corpuscular Volume 86.6 fL (80.0-100.0); Mean Platelet Volume 8.9 fL (7.0-11.0); Mono % (Auto) 3.5 % (0.0-8.0); Neut # (Auto) 26.9 th/mm3 (1.8-7.7); Neut % (Auto) 93.1 % (16.0-70.0); Platelet Count 364 th/mm3 (150-450); Red Blood Count 3.54 mil/mm3 (4.00-5.30); Red Cell Distribution Width 14.8 % (11.6-17.2); White Blood Count 28.8 th/mm3 (4.0-11.0)
[2018-05-04 06:39] LABS: Chloride 97 meq/L (98-107); Potassium 4.3 meq/L (3.5-5.1); Sodium 127 meq/L (136-145)
[2018-05-04 06:54] LABS: Anion Gap 11 meq/L (5-15); Blood Urea Nitrogen 13 mg/dL (7-18); Calcium 6.2 mg/dL (8.5-10.1); Carbon Dioxide 19.2 meq/L (21.0-32.0); Glomerular Filtration Rate Greater Than 89 mL/min (>89); Glucose,Random 104 mg/dL (74-106)
[2018-05-04 07:30] LABS: Total Protein 5.4 g/dL (6.4-8.2)
--- NOTE | 2018-05-04 07:48 | P.PN ---
Subjective Interval history: She states she feels better today. I increased her Prednisone to 40mg yesterday. Her bilateral wrist pain is a little better and knee pain much better. She has no further nausea and was able to eat better yesterday. Still has soft stools. Physical Exam Vital signs: Vital Signs 05/03/18 08:00 05/03/18 09:03 05/03/18 12:00 Temperature 98.8 F 98.7 F Pulse Rate 117 H 75 Respiratory Rate 16 18 16 Blood Pressure 136/73 108/65 Pulse Oximetry 97 96 05/03/18 16:00 05/03/18 16:14 05/03/18 20:00 Temperature 98.4 F 97.6 F Pulse Rate 79 75 Respiratory Rate 17 18 20 Blood Pressure 108/73 121/80 Pulse Oximetry 96 98 05/04/18 00:00 05/04/18 04:00 Temperature 96.4 F L 96.1 F L Pulse Rate 75 76 Respiratory Rate 20 20 Blood Pressure 115/65 117/72 Pulse Oximetry 98 98 Intake & Output 05/03/18 05/04/18 05/04/18 18:59 06:59 18:59 Intake Total 2485.0 / 2485.0 1382.5 / 1382.5 Output Total 700 / 700 Balance 1785.0 / 1785.0 1382.5 / 1382.5 Intake: IV 1525.0 / 1525.0 1262.5 / 1262.5 NS + KCl 40 mEq Inj 1,000 ML @ 1000 / 1000 1000 / 1000 60 mls/hr IV.CONT .[id number] BALA Rx#:[id number] Vancomycin Inj 1,250 MG In NS 525.0 / 525.0 262.5 / 262.5 Inj 250 ML @ 250 mls/hr IV.SIG Q18H BALA Rx#:[id number] Oral 960 / 960 120 / 120 Output: Urine 700 / 700 Other: Date of Last Bowel Movement 05/02/18 05/03/18 # Bowel Movements 2 1 Narrative: Exam: This is a pleasant white female in no distress. HEENT: Pupils equal, EOMs intact, mouth without lesions Neck: No JVD, neck is supple Heart: Regular rate and rhythm without murmurs or gallops Lungs: Clear to auscultation Abdomen: Soft, no masses, no tenderness in epigastric region and lower abdomen today Extremities: pulses palpated, no calf tenderness. She has slight swelling of her knees but no warmness to touch and much less soreness with movement. She however has discomfort over both wrists and pain on motion and also just slight warmness over the wrist joints.. Neuro: Alert, oriented, normal motor exam, sensation intact - Urinary Catheter Management Indwelling Urethral Catheter Cath placed during this visit: yes Reason for continuing: Acute urinary retention Insertion date: 05/02/18 Insertion time: 06:35 Results - Labs CBC & Chem 7: 05/04/18 05:44 05/04/18 05:44 Laboratory Results - last 24 hr 04/29/18 05/02/18 05/03/18 16:58 16:30 14:12 CBC w Diff WBC RBC Hgb Hct MCV MCH MCHC RDW Plt Count MPV Neut % (Auto) Lymph % (Auto) Ward % (Auto) Eos % (Auto) Baso % (Auto) Neut # (Auto) Lymph # (Auto) Ward # (Auto) Eos # (Auto) Baso # (Auto) WBC Differential Differential Comment Sodium Potassium Chloride Carbon Dioxide Anion Gap BUN Creatinine Estimated GFR Random Glucose Lactic Acid 1.2 Calcium Magnesium TSH Urine Osmolality Ur Random Potassium IgG Total 589 L IgG1 338 L IgG2 206 L IgG3 20 L IgG4 11.2 PARVIZ Screen Neg 05/03/18 05/03/18 05/04/18 16:55 16:55 05:44 CBC w Diff WBC RBC Hgb Hct MCV MCH MCHC RDW Plt Count MPV Neut % (Auto) Lymph % (Auto) Ward % (Auto) Eos % (Auto) Baso % (Auto) Neut # (Auto) Lymph # (Auto) Ward # (Auto) Eos # (Auto) Baso # (Auto) WBC Differential Differential Comment Sodium 127 L Potassium 4.3 Chloride 97 L Carbon Dioxide 19.2 L Anion Gap 11 BUN 13 Creatinine 0.37 L Estimated GFR Greater than 89 Random Glucose 104 Lactic Acid Calcium 6.2 L* Magnesium 2.0 TSH 1.390 Urine Osmolality 550 Ur Random Potassium 73 IgG Total IgG1 IgG2 IgG3 IgG4 PARVIZ Screen 05/04/18 05:44 CBC w Diff Auto diff final WBC 28.8 H RBC 3.54 L Hgb 10.0 L Hct 30.7 L MCV 86.6 MCH 28.4 MCHC 32.7 RDW 14.8 Plt Count 364 MPV 8.9 Neut % (Auto) 93.1 H Lymph % (Auto) 2.5 L Ward % (Auto) 3.5 Eos % (Auto) 0.1 Baso % (Auto) 0.8 Neut # (Auto) 26.9 H Lymph # (Auto) 0.7 L Ward # (Auto) 1.0 H Eos # (Auto) 0.0 Baso # (Auto) 0.2 WBC Differential . Differential Comment . Sodium Potassium Chloride Carbon Dioxide Anion Gap BUN Creatinine Estimated GFR Random Glucose Lactic Acid Calcium Magnesium TSH Urine Osmolality Ur Random Potassium IgG Total IgG1 IgG2 IgG3 IgG4 PARVIZ Screen Microbiology 04/29/18 06:10 Blood - Peripheral Aerobic Blood Culture - Preliminary No growth in 4 days 04/29/18 06:10 Blood - Peripheral Anaerobic Blood Culture - Preliminary No growth in 4 days 04/29/18 06:15 Blood - Peripheral Aerobic Blood Culture - Preliminary No growth in 4 days 04/29/18 06:15 Blood - Peripheral Anaerobic Blood Culture - Preliminary No growth in 4 days 05/01/18 10:30 Clean Catch Urine Urine Culture - Final No growth in 48 hours Laboratory Results - last 72 hr 04/29/18 04/30/18 05/01/18 16:58 14:09 05:15 CBC w Diff WBC RBC Hgb Hct MCV MCH MCHC RDW Plt Count MPV Neut % (Auto) Lymph % (Auto) Ward % (Auto) Eos % (Auto) Baso % (Auto) Neut # (Auto) Lymph # (Auto) Ward # (Auto) Eos # (Auto) Baso # (Auto) WBC Differential Seg Neuts % (Manual) Band Neuts % (Manual) Lymphocytes % (Manual) Monocytes % (Manual) Myelocytes % (Man) Abs Neuts (Manual) Differential Comment Platelet Estimate Platelet Morphology RBC Morphology ESR Sodium Potassium Chloride Carbon Dioxide Anion Gap BUN Creatinine Estimated GFR Random Glucose Lactic Acid Calcium Prot Corrected Calcium Magnesium 1.3 L Total Protein TSH Ur Collection Type Urine Color Urine Clarity Urine pH Ur Specific Hodges Urine Protein Urine Glucose (UA) Urine Ketones Urine Occult Blood Urine Nitrate Urine Bilirubin Urine Urobilinogen Ur Leukocyte Esterase Urine RBC Urine WBC Ur Squamous Epith Cells Urine Bacteria Micro UA Comment Urine Culture Comments Urine Osmolality Ur Random Potassium IgG Total 589 L IgG1 338 L IgG2 206 L IgG3 20 L IgG4 11.2 Rheumatoid Factor Scrn Rheumatoid Factor Titer PARVIZ Screen Adenovirus (PCR) Not detected Bordetella holmesii PCR Not detected B. pertussis DNA (PCR) Not detected B. paraper/bronch (PCR) Not detected Human Metapneumovir PCR Not detected Influenza A (RT-PCR) Not detected Influenza A (H1) PCR Not detected Influenza A (H3) PCR Not detected Influenza B (RT-PCR) Not detected Parainfluenza 1 (PCR) Not detected Parainfluenza 2 (PCR) Not detected Parainfluenza 3 (PCR) Not detected Parainfluenza 4 (PCR) Not detected RSV Type A (PCR) Not detected RSV Type B (PCR) Not detected Rhinovirus (PCR) Not detected 05/01/18 05/02/18 05/02/18 10:30 05:50 05:50 CBC w Diff Slide review pending WBC 30.8 H RBC 3.35 L Hgb 10.0 L Hct 28.4 L MCV 84.9 MCH 29.8 MCHC 35.2 RDW 14.5 Plt Count 285 MPV 9.5 Neut % (Auto) 91.4 H Lymph % (Auto) 2.3 L Ward % (Auto) 6.1 Eos % (Auto) 0.2 Baso % (Auto) 0.0 Neut # (Auto) 28.1 H Lymph # (Auto) 0.7 L Ward # (Auto) 1.9 H Eos # (Auto) 0.1 Baso # (Auto) 0.0 WBC Differential Manual diff final Seg Neuts % (Manual) 84 H Band Neuts % (Manual) 8 H Lymphocytes % (Manual) 5 L Monocytes % (Manual) 3 Myelocytes % (Man) Abs Neuts (Manual) 28.3 H Differential Comment . Platelet Estimate Platelet Morphology RBC Morphology ESR Sodium 130 L Potassium 3.8 Chloride 99 Carbon Dioxide 17.8 L Anion Gap 13 BUN 11 Creatinine 0.43 L Estimated GFR Greater than 89 Random Glucose 72 L Lactic Acid Calcium 6.3 L* Prot Corrected Calcium 7.0 L* Magnesium Total Protein 5.5 L TSH Ur Collection Type Cath Urine Color Yellow Urine Clarity Slightly cloudy Urine pH 6.0 Ur Specific Hodges 1.025 Urine Protein 100 H Urine Glucose (UA) Negative Urine Ketones 15 H Urine Occult Blood Small H Urine Nitrate Negative Urine Bilirubin Negative Urine Urobilinogen 0.2 Ur Leukocyte Esterase Trace H Urine RBC 0-3 Urine WBC 0-5 Ur Squamous Epith Cells 0-5 Urine Bacteria Rare H Micro UA Comment Cath-culture ind Urine Culture Comments Cath-cult indicated Urine Osmolality Ur Random Potassium IgG Total IgG1 IgG2 IgG3 IgG4 Rheumatoid Factor Scrn Rheumatoid Factor Titer PARVIZ Screen Adenovirus (PCR) Bordetella holmesii PCR B. pertussis DNA (PCR) B. paraper/bronch (PCR) Human Metapneumovir PCR Influenza A (RT-PCR) Influenza A (H1) PCR Influenza A (H3) PCR Influenza B (RT-PCR) Parainfluenza 1 (PCR) Parainfluenza 2 (PCR) Parainfluenza 3 (PCR) Parainfluenza 4 (PCR) RSV Type A (PCR) RSV Type B (PCR) Rhinovirus (PCR) 05/02/18 05/02/18 05/02/18 16:30 16:30 16:30 CBC w Diff WBC RBC Hgb Hct MCV MCH MCHC RDW Plt Count MPV Neut % (Auto) Lymph % (Auto) Ward % (Auto) Eos % (Auto) Baso % (Auto) Neut # (Auto) Lymph # (Auto) Ward # (Auto) Eos # (Auto) Baso # (Auto) WBC Differential Seg Neuts % (Manual) Band Neuts % (Manual) Lymphocytes % (Manual) Monocytes % (Manual) Myelocytes % (Man) Abs Neuts (Manual) Differential Comment Platelet Estimate Platelet Morphology RBC Morphology ESR 64 H Sodium Potassium Chloride Carbon Dioxide Anion Gap BUN Creatinine Estimated GFR Random Glucose Lactic Acid Calcium Prot Corrected Calcium Magnesium Total Protein TSH Ur Collection Type Urine Color Urine Clarity Urine pH Ur Specific Hodges Urine Protein Urine Glucose (UA) Urine Ketones Urine Occult Blood Urine Nitrate Urine Bilirubin Urine Urobilinogen Ur Leukocyte Esterase Urine RBC Urine WBC Ur Squamous Epith Cells Urine Bacteria Micro UA Comment Urine Culture Comments Urine Osmolality Ur Random Potassium IgG Total IgG1 IgG2 IgG3 IgG4 Rheumatoid Factor Scrn Negative Rheumatoid Factor Titer Not Reportable PARVIZ Screen Neg Adenovirus (PCR) Bordetella holmesii PCR B. pertussis DNA (PCR) B. paraper/bronch (PCR) Human Metapneumovir PCR Influenza A (RT-PCR) Influenza A (H1) PCR Influenza A (H3) PCR Influenza B (RT-PCR) Parainfluenza 1 (PCR) Parainfluenza 2 (PCR) Parainfluenza 3 (PCR) Parainfluenza 4 (PCR) RSV Type A (PCR) RSV Type B (PCR) Rhinovirus (PCR) 05/03/18 05/03/18 05/03/18 05:20 05:20 14:12 CBC w Diff Slide review pending WBC 30.1 H RBC 3.56 L Hgb 10.1 L Hct 31.0 L MCV 87.0 MCH 28.2 MCHC 32.5 RDW 14.5 Plt Count 346 MPV 8.5 Neut % (Auto) 89.5 H Lymph % (Auto) 2.9 L Ward % (Auto) 6.7 Eos % (Auto) 0.4 Baso % (Auto) 0.5 Neut # (Auto) 26.9 H Lymph # (Auto) 0.9 L Ward # (Auto) 2.0 H Eos # (Auto) 0.1 Baso # (Auto) 0.2 WBC Differential Manual diff final Seg Neuts % (Manual) 73 H Band Neuts % (Manual) 17 H Lymphocytes % (Manual) 3 L Monocytes % (Manual) 6 Myelocytes % (Man) 1 H Abs Neuts (Manual) 27.4 H Differential Comment . Platelet Estimate Normal Platelet Morphology Normal RBC Morphology Normal ESR Sodium 126 L Potassium 3.9 Chloride 97 L Carbon Dioxide 17.9 L Anion Gap 11 BUN 13 Creatinine 0.43 L Estimated GFR Greater than 89 Random Glucose 90 Lactic Acid 1.2 Calcium 6.3 L* Prot Corrected Calcium 7.1 L* Magnesium 1.8 Total Protein 5.4 L TSH Ur Collection Type Urine Color Urine Clarity Urine pH Ur Specific Hodges Urine Protein Urine Glucose (UA) Urine Ketones Urine Occult Blood Urine Nitrate Urine Bilirubin Urine Urobilinogen Ur Leukocyte Esterase Urine RBC Urine WBC Ur Squamous Epith Cells Urine Bacteria Micro UA Comment Urine Culture Comments Urine Osmolality Ur Random Potassium IgG Total IgG1 IgG2 IgG3 IgG4 Rheumatoid Factor Scrn Rheumatoid Factor Titer PARVIZ Screen Adenovirus (PCR) Bordetella holmesii PCR B. pertussis DNA (PCR) B. paraper/bronch (PCR) Human Metapneumovir PCR Influenza A (RT-PCR) Influenza A (H1) PCR Influenza A (H3) PCR Influenza B (RT-PCR) Parainfluenza 1 (PCR) Parainfluenza 2 (PCR) Parainfluenza 3 (PCR) Parainfluenza 4 (PCR) RSV Type A (PCR) RSV Type B (PCR) Rhinovirus (PCR) 05/03/18 05/03/18 05/04/18 16:55 16:55 05:44 CBC w Diff WBC RBC Hgb Hct MCV MCH MCHC RDW Plt Count MPV Neut % (Auto) Lymph % (Auto) Ward % (Auto) Eos % (Auto) Baso % (Auto) Neut # (Auto) Lymph # (Auto) Ward # (Auto) Eos # (Auto) Baso # (Auto) WBC Differential Seg Neuts % (Manual) Band Neuts % (Manual) Lymphocytes % (Manual) Monocytes % (Manual) Myelocytes % (Man) Abs Neuts (Manual) Differential Comment Platelet Estimate Platelet Morphology RBC Morphology ESR Sodium 127 L Potassium 4.3 Chloride 97 L Carbon Dioxide 19.2 L Anion Gap 11 BUN 13 Creatinine 0.37 L Estimated GFR Greater than 89 Random Glucose 104 Lactic Acid Calcium 6.2 L* Prot Corrected Calcium 7.0 L* Magnesium 2.0 Total Protein 5.4 L TSH 1.390 Ur Collection Type Urine Color Urine Clarity Urine pH Ur Specific Hodges Urine Protein Urine Glucose (UA) Urine Ketones Urine Occult Blood Urine Nitrate Urine Bilirubin Urine Urobilinogen Ur Leukocyte Esterase Urine RBC Urine WBC Ur Squamous Epith Cells Urine Bacteria Micro UA Comment Urine Culture Comments Urine Osmolality 550 Ur Random Potassium 73 IgG Total IgG1 IgG2 IgG3 IgG4 Rheumatoid Factor Scrn Rheumatoid Factor Titer PARVIZ Screen Adenovirus (PCR) Bordetella holmesii PCR B. pertussis DNA (PCR) B. paraper/bronch (PCR) Human Metapneumovir PCR Influenza A (RT-PCR) Influenza A (H1) PCR Influenza A (H3) PCR Influenza B (RT-PCR) Parainfluenza 1 (PCR) Parainfluenza 2 (PCR) Parainfluenza 3 (PCR) Parainfluenza 4 (PCR) RSV Type A (PCR) RSV Type B (PCR) Rhinovirus (PCR) 05/04/18 05:44 CBC w Diff Auto diff final WBC 28.8 H RBC 3.54 L Hgb 10.0 L Hct 30.7 L MCV 86.6 MCH 28.4 MCHC 32.7 RDW 14.8 Plt Count 364 MPV 8.9 Neut % (Auto) 93.1 H Lymph % (Auto) 2.5 L Ward % (Auto) 3.5 Eos % (Auto) 0.1 Baso % (Auto) 0.8 Neut # (Auto) 26.9 H Lymph # (Auto) 0.7 L Ward # (Auto) 1.0 H Eos # (Auto) 0.0 Baso # (Auto) 0.2 WBC Differential . Seg Neuts % (Manual) Band Neuts % (Manual) Lymphocytes % (Manual) Monocytes % (Manual) Myelocytes % (Man) Abs Neuts (Manual) Differential Comment . Platelet Estimate Platelet Morphology RBC Morphology ESR Sodium Potassium Chloride Carbon Dioxide Anion Gap BUN Creatinine Estimated GFR Random Glucose Lactic Acid Calcium Prot Corrected Calcium Magnesium Total Protein TSH Ur Collection Type Urine Color Urine Clarity Urine pH Ur Specific Hodges Urine Protein Urine Glucose (UA) Urine Ketones Urine Occult Blood Urine Nitrate Urine Bilirubin Urine Urobilinogen Ur Leukocyte Esterase Urine RBC Urine WBC Ur Squamous Epith Cells Urine Bacteria Micro UA Comment Urine Culture Comments Urine Osmolality Ur Random Potassium IgG Total IgG1 IgG2 IgG3 IgG4 Rheumatoid Factor Scrn Rheumatoid Factor Titer PARVIZ Screen Adenovirus (PCR) Bordetella holmesii PCR B. pertussis DNA (PCR) B. paraper/bronch (PCR) Human Metapneumovir PCR Influenza A (RT-PCR) Influenza A (H1) PCR Influenza A (H3) PCR Influenza B (RT-PCR) Parainfluenza 1 (PCR) Parainfluenza 2 (PCR) Parainfluenza 3 (PCR) Parainfluenza 4 (PCR) RSV Type A (PCR) RSV Type B (PCR) Rhinovirus (PCR) - Imaging Abdomen Ultrasound 04/29/18 00:00 CONCLUSION: 1. Unremarkable study. Abdomen/Pelvis CT 04/29/18 00:00 CONCLUSION: Gas bubble inside the bladder may be iatrogenic and of uncertain etiology, otherwise unremarkable. Chest X-Ray 04/29/18 00:00 CONCLUSION: 1. No acute cardiopulmonary disease. Knee X-Ray 05/01/18 00:00 CONCLUSION: Chondrocalcinosis, osteoarthritis and large effusion. Knee X-Ray 05/01/18 00:00 CONCLUSION: Tricompartmental osteoarthritis. There is a small associated joint effusion. No acute fracture identified. Assessment and Plan - Assessment (1) Fever Code(s): R50.9 - Fever, unspecified Status: Acute Plan: Her fever has resolved. (2) Elevated lipase Code(s): R74.8 - Abnormal levels of other serum enzymes Status: Acute Plan: Her lipase level is now normal. She likely had some minimal pancreatitis. (3) Acute hyponatremia Code(s): E87.1 - Hypo-osmolality and hyponatremia Status: Acute (4) Acute diarrhea Code(s): R19.7 - Diarrhea, unspecified Status: Acute (5) Inflammatory polyarthropathy of multiple sites Code(s): M06.4 - Inflammatory polyarthropathy Status: Acute (6) Urinary retention Code(s): R33.9 - Retention of urine, unspecified Status: Acute (7) Hypocalcemia Code(s): E83.51 - Hypocalcemia Status: Acute (8) Hyperlipidemia Code(s): E78.5 - Hyperlipidemia, unspecified Status: Chronic (9) Coronary artery disease Code(s): I25.10 - Atherosclerotic heart disease of [place] coronary artery without angina pectoris Status: Chronic (10) Paroxysmal atrial fibrillation Code(s): I48.0 - Paroxysmal atrial fibrillation Status: Chronic (11) Carotid artery plaque Code(s): I65.29 - Occlusion and stenosis of unspecified carotid artery Status : Chronic (12) Pacemaker Code(s): Z95.0 - Presence of cardiac pacemaker Status: Chronic (13) History of mitral valve repair Code(s): Z98.890 - Other specified postprocedural states Status: Chronic (14) Osteoporosis Code(s): M81.0 - Age-related osteoporosis without current pathological fracture Status: Chronic (15) Obstructive sleep apnea Code(s): G47.33 - Obstructive sleep apnea (adult) (pediatric) Status: Chronic (16) Pulmonary hypertension Code(s): I27.20 - Pulmonary hypertension, unspecified Status: Chronic (17) Hypothyroidism Code(s): E03.9 - Hypothyroidism, unspecified Status: Chronic - Plan Plan: She will be maintained on her Eliquis for her for DVT prophylaxis and for her paroxysmal atrial fibrillation. Continue antibiotics (ID is managing). Her WBC went down a little from yesterday. Repeat CBC, BMP in the morning. Continue [place] for hypocalcemia. Continue Prednisone to 40mg daily for her joint aches to help with inflammation. Continue on Garcia for urinary retention. Advance diet from liquid to solid as tolerated today. I encouraged her to eat to build up her strength and protein stores.
[2018-05-04] MEDS: Lactobacillus Acidophilus/L. Spores Tablet PO SCH ×3 (09:09→17:20)
[2018-05-04] MEDS: Calcium/Vitamin D 250/125 MG Tablet PO SCH ×2 (09:10→21:57)
[2018-05-04] MEDS: predniSONE 20 MG Tablet PO SCH (09:14)
[2018-05-04] MEDS: Nystatin Liq 500,000 UNIT/5 ML UDC SWISH-SWAL SCH ×4 (09:15→21:56)
[2018-05-04] MEDS: Magnesium Oxide 400 MG Tablet PO SCH ×2 (09:15→21:59)
[2018-05-04] MEDS: Fluconazole 100 MG Tablet PO SCH (09:15)
[2018-05-04] MEDS: Sodium Chloride 1 GM Tablet PO SCH ×2 (09:16→21:58)
[2018-05-04] MEDS: Famotidine 20 MG Tablet PO SCH ×2 (09:16→21:58)
[2018-05-04] MEDS: ALPRAZolam 0.25 MG Tablet PO PRN ×2 (13:01→22:01)
--- NOTE | 2018-05-04 13:31 | P.PNNP ---
Subjective Interval history: Patient is alert, still not eating well, no nausea, no SOB. Physical Exam Vital signs: Vital Signs 05/03/18 16:00 05/03/18 16:14 05/03/18 20:00 Temperature 98.4 F 97.6 F Pulse Rate 79 75 Respiratory Rate 17 18 20 Blood Pressure 108/73 121/80 Pulse Oximetry 96 98 05/04/18 00:00 05/04/18 04:00 05/04/18 08:00 Temperature 96.4 F L 96.1 F L 96.1 F L Pulse Rate 75 76 77 Respiratory Rate 20 20 20 Blood Pressure 115/65 117/72 111/58 L Pulse Oximetry 98 98 96 05/04/18 11:21 05/04/18 12:00 Temperature 98 F Pulse Rate 74 Respiratory Rate 16 20 Blood Pressure 113/70 Pulse Oximetry 97 Intake & Output 05/03/18 05/04/18 05/04/18 18:59 06:59 18:59 Intake Total 2485.0 / 2485.0 1382.5 / 1382.5 1000 / 1000 Output Total 700 / 700 Balance 1785.0 / 1785.0 1382.5 / 1382.5 1000 / 1000 Intake: IV 1525.0 / 1525.0 1262.5 / 1262.5 1000 / 1000 NS + KCl 40 mEq Inj 1,000 ML @ 1000 / 1000 1000 / 1000 1000 / 1000 60 mls/hr IV.CONT .[id number] BALA Rx#:[id number] Vancomycin Inj 1,250 MG In NS 525.0 / 525.0 262.5 / 262.5 Inj 250 ML @ 250 mls/hr IV.SIG Q18H BALA Rx#:[id number] Oral 960 / 960 120 / 120 Output: Urine 700 / 700 Other: Date of Last Bowel Movement 05/02/18 05/03/18 # Bowel Movements 2 1 Narrative: HEENT: Pupils equal, EOMs intact, mouth without lesions Neck: No JVD, neck is supple Heart: Regular rate and rhythm without murmurs or gallops Lungs: Clear to auscultation Abdomen: Soft, no masses, no tenderness in epigastric region and lower abdomen today Extremities: pulses palpated, no calf tenderness. She has slight swelling of her knees but no warmness to touch and much less soreness with movement. She however has discomfort over both wrists and pain on motion and also just slight warmness over the wrist joints.. Neuro: Alert, oriented, normal motor exam, sensation intact - Urinary Catheter Management Indwelling Urethral Catheter Cath placed during this visit: yes Reason for continuing: Acute urinary retention Insertion date: 05/02/18 Insertion time: 06:35 Assessment and Plan - Plan ASSESSMENT AND PLAN: 1. Hyponatremia. 2. Electrolyte imbalance with low potassium and low calcium and low magnesium. 3. Metabolic acidosis. 4. Urinary tract infection. 5. Leukocytosis. 6. Anemia. 7. Hypothyroidism. Patient with recurrent Hyponatremia, clinically euvolemic. Urine osmolality is elevated, Has an element of SIADH along with low oral intake. Now on Oral Nacl. Sodium is 127, follow sodium level. Encourage oral intake.
--- NOTE | 2018-05-04 15:38 | P.PNID ---
Subjective Remarks: ID COVERAGE: Notes reviewed. Patient is a 73-year-old female, presented to the hospital for further evaluation of severe diarrhea and abdominal cramping. Back in March towards the last week, patient received Reclast infusion for her osteoporosis. About 2-3 days after that infusion, she developed swelling and redness in her red eye. She went to the emergency room on April 01, and she was given some steroids as well as referral to an prop and scenery maker. Her symptoms gradually improved, and about the first week of April she started having some upper respiratory symptoms and some congestion. She went to her primary care physician at that time and she was given a prescription for Z-[place] which she completed 5 days treatment. About 10 days prior to admission she started developing severe diarrhea, watery , some with mucus, associated with diffuse abdominal pain and abdominal cramping. She was given Flagyl, and stool for C. difficile was tested which came back negative, but it was decided for her to complete a week course of Flagyl. Her symptoms improved a little bit, however 1-2 days prior to admission , her diarrhea came back with a vengeance. She also started having worsening abdominal pain. She felt somewhat chilly but there was no documented fever. The day of admission she had vomiting, and because of her persistent symptoms, and her progressive weakness and poor appetite, she presented to the hospital for further evaluation and treatment. On presentation she had an elevated WBC. Her lipase was elevated at 545. LFTs normal. Her urinalysis did show 6-8 WBC with occasional clumps. C. difficile toxin was negative. CT of the abdomen and pelvis did not show any significant abnormality, nor did it show any bowel wall thickening. Abdominal ultrasound is unremarkable. She initially had some low-grade temps, but her temperature has been increasing and is up to 101.8. Her white count also had gone up to 17.5. GI is evaluating the patient. She is currently on Levaquin and Flagyl. She currently denies any respiratory complaint. She is voiding okay at home. Patient has been with limited activity since she has been sick due to her significant weakness. She has had prior repair of a fracture on the left hip, and she has had previous problem with arthritis in both knees, and due to her immobility, she has been experiencing increased pain specifically worse on the left knee. Infectious disease consultation has been requested to evaluate the patient. Patient's son and daughter in law notes that she developed bilateral eye pain along with flu like symptoms after she got the dose of Reclast. Afebrile. Feels stronger. Eating better. Had one loose stool but not completely watery today. Still feels fatigued. Still has joint pain radicularly at the hands. Still has swelling at the hands and knees. Has oral thrush. No headache. Denies chills. Denies shortness of breath. Sat up on the side of the bed with physical therapy. 2D echocardiogram without mention of valvular vegetation. White blood cell count is elevated. Repeat urine culture has no growth. Blood culture has no growth. Antibiotics: Vancomycin. Diflucan. Lines: No evidence of infection Past Medical History: CAD (coronary artery disease) Fatty liver Hx of cardiac pacemaker Hyperlipidemia Hypertension Hypothyroidism Normal colonoscopy Osteoporosis Paroxysmal atrial fibrillation Sleep apnea Ulcerative colitis History of appendectomy History of mitral valve repair History of tonsillectomy and adenoidectomy History of total abdominal hysterectomy Status post-operative repair of closed fracture of left hip Allergies/Adverse Reactions: Allergies cephalexin [From Keflex] Allergy (Verified 04/28/18 21:02) Rash codeine Allergy (Verified 04/28/18 21:02) Abdominal Pain mannitol [From Reclast] Allergy (Verified 04/28/18 21:02) Nausea/Vomiting meperidine [From Demerol] Allergy (Verified 04/28/18 21:02) Abdominal Pain water for injection,sterile [From Reclast] Allergy (Verified 04/28/18 21:02) Nausea/Vomiting zoledronic acid [From Reclast] Allergy (Verified 04/28/18 21:02) Nausea/Vomiting Objective Vital Signs 05/03/18 16:00 05/03/18 16:14 05/03/18 20:00 Temperature 98.4 F 97.6 F Pulse Rate 79 75 Respiratory Rate 17 18 20 Blood Pressure 108/73 121/80 Pulse Oximetry 96 98 05/04/18 00:00 05/04/18 04:00 05/04/18 08:00 Temperature 96.4 F L 96.1 F L 96.1 F L Pulse Rate 75 76 77 Respiratory Rate 20 20 20 Blood Pressure 115/65 117/72 111/58 L Pulse Oximetry 98 98 96 05/04/18 08:15 05/04/18 11:21 05/04/18 12:00 Temperature 98 F Pulse Rate 74 74 Respiratory Rate 16 20 Blood Pressure 113/70 Pulse Oximetry 97 Intake & Output 05/03/18 05/04/18 05/04/18 18:59 06:59 18:59 Intake Total 2485.0 / 2485.0 1382.5 / 1382.5 1000 / 1000 Output Total 700 / 700 Balance 1785.0 / 1785.0 1382.5 / 1382.5 1000 / 1000 Intake: IV 1525.0 / 1525.0 1262.5 / 1262.5 1000 / 1000 NS + KCl 40 mEq Inj 1,000 ML @ 1000 / 1000 1000 / 1000 1000 / 1000 60 mls/hr IV.CONT .[id number] BALA Rx#:[id number] Vancomycin Inj 1,250 MG In NS 525.0 / 525.0 262.5 / 262.5 Inj 250 ML @ 250 mls/hr IV.SIG Q18H BALA Rx#:[id number] Oral 960 / 960 120 / 120 Output: Urine 700 / 700 Other: Date of Last Bowel Movement 05/02/18 05/03/18 # Bowel Movements 2 1 04/29/18 06:10 Blood - Peripheral Aerobic Blood Culture - Final No growth in 5 days 04/29/18 06:10 Blood - Peripheral Anaerobic Blood Culture - Final No growth in 5 days 04/29/18 06:15 Blood - Peripheral Aerobic Blood Culture - Final No growth in 5 days 04/29/18 06:15 Blood - Peripheral Anaerobic Blood Culture - Final No growth in 5 days 05/01/18 10:30 Clean Catch Urine Urine Culture - Final No growth in 48 hours 05/01/18 20:45 Stool Stool for WBCs - Final Moderate WBC'S Lab - Hematology Results 05/02/18 05/03/18 05/04/18 16:30 05:20 05:44 CBC w Diff Slide review pending Auto diff final WBC 30.1 H 28.8 H RBC 3.56 L 3.54 L Hgb 10.1 L 10.0 L Hct 31.0 L 30.7 L MCV 87.0 86.6 MCH 28.2 28.4 MCHC 32.5 32.7 RDW 14.5 14.8 Plt Count 346 364 MPV 8.5 8.9 Neut % (Auto) 89.5 H 93.1 H Lymph % (Auto) 2.9 L 2.5 L [place] % (Auto) 6.7 3.5 Eos % (Auto) 0.4 0.1 Baso % (Auto) 0.5 0.8 Neut # (Auto) 26.9 H 26.9 H Lymph # (Auto) 0.9 L 0.7 L [place] # (Auto) 2.0 H 1.0 H Eos # (Auto) 0.1 0.0 Baso # (Auto) 0.2 0.2 WBC Differential Manual diff final . Seg Neuts % (Manual) 73 H Band Neuts % (Manual) 17 H Lymphocytes % (Manual) 3 L Monocytes % (Manual) 6 Myelocytes % (Man) 1 H Abs Neuts (Manual) 27.4 H Differential Comment . . Platelet Estimate Normal Platelet Morphology Normal RBC Morphology Normal ESR 64 H Lab - Chemistry Results 05/03/18 05/03/18 05/04/18 05:20 14:12 05:44 Sodium 126 L 127 L Potassium 3.9 4.3 Chloride 97 L 97 L Carbon Dioxide 17.9 L 19.2 L Anion Gap 11 11 BUN 13 13 Creatinine 0.43 L 0.37 L Estimated GFR Greater than 89 Greater than 89 Random Glucose 90 104 Lactic Acid 1.2 Calcium 6.3 L* 6.2 L* Prot Corrected Calcium 7.1 L* 7.0 L* Magnesium 1.8 2.0 Total Protein 5.4 L 5.4 L TSH 1.390 Imaging: ITS Impressions Abdomen Ultrasound 04/29/18 00:00 CONCLUSION: 1. Unremarkable study. Abdomen/Pelvis CT 04/29/18 00:00 CONCLUSION: Gas bubble inside the bladder may be iatrogenic and of uncertain etiology, otherwise unremarkable. Chest X-Ray 04/29/18 00:00 CONCLUSION: 1. No acute cardiopulmonary disease. Knee X-Ray 05/01/18 00:00 CONCLUSION: Tricompartmental osteoarthritis. There is a small associated joint effusion. No acute fracture identified. Physical Exam: GENERAL: No acute distress. SKIN: Warm and dry. HEAD: Atraumatic. Normocephalic. EYES: Pupils equal and round. No scleral icterus. No injection or drainage. ENT: No nasal bleeding or discharge. Positive oral thrush. NECK: Trachea midline. No JVD. CARDIOVASCULAR: Regular rate and rhythm. 1/6 systolic murmur left sternal border. RESPIRATORY: No accessory muscle use. Clear to auscultation. Breath sounds equal. CHEST: Pacemaker site appears intact. No evidence of infection. GASTROINTESTINAL: Abdomen soft, non-tender, nondistended. MUSCULOSKELETAL: Extremities without clubbing, cyanosis. Knee joint swelling. Decreased swelling of the hands and arms and knees. No obvious deformities. NEUROLOGICAL: Awake and alert. No obvious cranial nerve deficits. Normal speech. PSYCHIATRIC: Appropriate mood and affect; normal insight and judgment normal. Assessment and Plan - Plan Impression Febrile illness, etiology? possible sepsis, source? Possible autoimmune disease. Possible inflammatory disease set off by Reclast. Given the continued diarrhea this could possibly be colitis flare with diffuse inflammatory component. - Elevated lipase on admission, better, could explain some of abdominal pain , possibly diarrhea; no radiologic evidence of pancreatitis - diarrhea, multiple C diff testing have been negative, no bowel wall thickening on CT, better Abdominal pain probably associated with inflammatory condition/colitis. Diarrhea - probable colitis flare. Polyarthritis, etiology? Probably related to Infusion of Reclast. Oral thrush. She appears to be improving. Appears to be responding to steroids. The white blood cell count remained elevated but that could be steroid effect and anticipate that it may take some time to come back down. Recommendation Stop vancomycin. Diflucan for oral thrush - treat for 10 days. Nystatin also for oral thrush. Follow temps Follow C/S Follow CBC Monitor progress PT to help with exercises/ambulation. Anticipate that she can be discharged in a day or two on steroids.
[2018-05-04] MEDS: Diphenoxylate/Atropine 2.5/0.025 MG Tablet PO PRN (21:58)
[2018-05-04] MEDS ORDERED: VANCOMYCIN TROUGH OTHER ONE (23:45)
[2018-05-05] MEDS: Vancomycin Inj 1,250 MG in Sodium Chlor 0.9% Inj 250 ML IV.SIG SCH (00:15)
[2018-05-05] MEDS: Morphine Sulfate Inj 2 MG/ML Vial IV.PUSH PRN ×3 (03:00→21:06)
[2018-05-05] MEDS: Diphenoxylate/Atropine 2.5/0.025 MG Tablet PO PRN ×2 (05:41→21:08)
--- NOTE | 2018-05-05 06:32 | P.PN ---
Subjective Interval history: She states she was able to eat more yesterday and had no nausea. No abdominal pain. I did give her some Lomotil yesterday which she states helped. She is still weak and not able to walk without assistance. Her knee pain is much better but still has joint pain in her wrists. I increased her Prednisone yesterday to 40mg daily which seems to be helping. Physical Exam Vital signs: Vital Signs 05/04/18 08:00 05/04/18 08:15 05/04/18 11:21 Temperature 96.1 F L Pulse Rate 77 74 Respiratory Rate 20 16 Blood Pressure 111/58 L Pulse Oximetry 96 05/04/18 12:00 05/04/18 14:00 05/04/18 16:00 Temperature 98 F 96.3 F L Pulse Rate 74 76 Respiratory Rate 20 16 20 Blood Pressure 113/70 109/55 L Pulse Oximetry 97 97 05/04/18 16:54 05/04/18 20:00 05/05/18 00:00 Temperature 96 F L 98.1 F Pulse Rate 74 75 Respiratory Rate 16 20 20 Blood Pressure 122/75 127/72 Pulse Oximetry 99 98 05/05/18 04:00 Temperature 97.8 F Pulse Rate 75 Respiratory Rate 20 Blood Pressure 117/72 Pulse Oximetry 96 Intake & Output 05/04/18 05/04/18 05/05/18 06:59 18:59 06:59 Intake Total 1382.5 / 1382.5 1060 / 1060 1502.5 / 1502.5 Output Total 400 / 400 400 / 400 Balance 1382.5 / 1382.5 660 / 660 1102.5 / 1102.5 Intake: IV 1262.5 / 1262.5 1000 / 1000 1262.5 / 1262.5 NS + KCl 40 mEq Inj 1,000 ML @ 1000 / 1000 1000 / 1000 1000 / 1000 60 mls/hr IV.CONT .[id number] BALA Rx#:[id number] Vancomycin Inj 1,250 MG In NS 262.5 / 262.5 262.5 / 262.5 Inj 250 ML @ 250 mls/hr IV.SIG Q18H BALA Rx#:[id number] Oral 120 / 120 60 / 60 240 / 240 Output: Urine 400 / 400 400 / 400 Other: Date of Last Bowel Movement 08/01/18 # Bowel Movements 1 1 Narrative: HEENT: Pupils equal, EOMs intact, mouth without lesions Neck: No JVD, neck is supple Heart: Regular rate and rhythm without murmurs or gallops Lungs: Clear to auscultation Abdomen: Soft, no masses, no tenderness in epigastric region and lower abdomen today Extremities: pulses palpated, no calf tenderness. She has slight swelling of her knees but no warmness to touch and much less soreness with movement. She however has discomfort over both wrists and pain on motion and also just slight warmness over the wrist joints.. Neuro: Alert, oriented, normal motor exam, sensation intact - Urinary Catheter Management Indwelling Urethral Catheter Cath placed during this visit: yes Reason for continuing: Chronic Urinary Retention Insertion date: 05/02/18 Insertion time: 06:35 Results - Labs CBC & Chem 7: 05/04/18 05:44 05/04/18 05:44 Laboratory Results - last 24 hr 05/04/18 05/04/18 05/04/18 05:44 05:44 23:35 CBC w Diff Auto diff final WBC 28.8 H RBC 3.54 L Hgb 10.0 L Hct 30.7 L MCV 86.6 MCH 28.4 MCHC 32.7 RDW 14.8 Plt Count 364 MPV 8.9 Neut % (Auto) 93.1 H Lymph % (Auto) 2.5 L [place] % (Auto) 3.5 Eos % (Auto) 0.1 Baso % (Auto) 0.8 Neut # (Auto) 26.9 H Lymph # (Auto) 0.7 L [place] # (Auto) 1.0 H Eos # (Auto) 0.0 Baso # (Auto) 0.2 WBC Differential . Differential Comment . Sodium 127 L Potassium 4.3 Chloride 97 L Carbon Dioxide 19.2 L Anion Gap 11 BUN 13 Creatinine 0.37 L Estimated GFR Greater than 89 Random Glucose 104 Calcium 6.2 L* Prot Corrected Calcium 7.0 L* Magnesium 2.0 Total Protein 5.4 L TSH 1.390 Vancomycin Trough 12.5 H Microbiology 04/29/18 06:10 Blood - Peripheral Aerobic Blood Culture - Final No growth in 5 days 04/29/18 06:10 Blood - Peripheral Anaerobic Blood Culture - Final No growth in 5 days 04/29/18 06:15 Blood - Peripheral Aerobic Blood Culture - Final No growth in 5 days 04/29/18 06:15 Blood - Peripheral Anaerobic Blood Culture - Final No growth in 5 days Lab today pending. - Imaging Abdomen Ultrasound 04/29/18 00:00 CONCLUSION: 1. Unremarkable study. Abdomen/Pelvis CT 04/29/18 00:00 CONCLUSION: Gas bubble inside the bladder may be iatrogenic and of uncertain etiology, otherwise unremarkable. Chest X-Ray 04/29/18 00:00 CONCLUSION: 1. No acute cardiopulmonary disease. Knee X-Ray 05/01/18 00:00 CONCLUSION: Chondrocalcinosis, osteoarthritis and large effusion. Knee X-Ray 05/01/18 00:00 CONCLUSION: Tricompartmental osteoarthritis. There is a small associated joint effusion. No acute fracture identified. Assessment and Plan - Assessment (1) Fever Code(s): R50.9 - Fever, unspecified Status: Acute Plan: Her fever has resolved. (2) Elevated lipase Code(s): R74.8 - Abnormal levels of other serum enzymes Status: Acute Plan: Her lipase level is now normal. She likely had some minimal pancreatitis. (3) Acute hyponatremia Code(s): E87.1 - Hypo-osmolality and hyponatremia Status: Acute (4) Acute diarrhea Code(s): R19.7 - Diarrhea, unspecified Status: Acute (5) Inflammatory polyarthropathy of multiple sites Code(s): M06.4 - Inflammatory polyarthropathy Status: Acute (6) Urinary retention Code(s): R33.9 - Retention of urine, unspecified Status: Acute (7) Hypocalcemia Code(s): E83.51 - Hypocalcemia Status: Acute (8) Hyperlipidemia Code(s): E78.5 - Hyperlipidemia, unspecified Status: Chronic (9) Coronary artery disease Code(s): I25.10 - Atherosclerotic heart disease of [place] coronary artery without angina pectoris Status: Chronic (10) Paroxysmal atrial fibrillation Code(s): I48.0 - Paroxysmal atrial fibrillation Status: Chronic (11) Carotid artery plaque Code(s): I65.29 - Occlusion and stenosis of unspecified carotid artery Status : Chronic (12) Pacemaker Code(s): Z95.0 - Presence of cardiac pacemaker Status: Chronic (13) History of mitral valve repair Code(s): Z98.890 - Other specified postprocedural states Status: Chronic (14) Osteoporosis Code(s): M81.0 - Age-related osteoporosis without current pathological fracture Status: Chronic (15) Obstructive sleep apnea Code(s): G47.33 - Obstructive sleep apnea (adult) (pediatric) Status: Chronic (16) Pulmonary hypertension Code(s): I27.20 - Pulmonary hypertension, unspecified Status: Chronic (17) Hypothyroidism Code(s): E03.9 - Hypothyroidism, unspecified Status: Chronic - Plan Plan: She will be maintained on her Eliquis for her for DVT prophylaxis and for her paroxysmal atrial fibrillation. Repeat CBC, BMP in the morning. Continue [place] for hypocalcemia. Continue Prednisone 40mg daily for her joint aches to help with inflammation. Continue on Garcia for urinary retention. Doing well on a solid diet. I encouraged her to eat to build up her strength and protein stores. Continue physical therapy.
[2018-05-05 07:24] LABS: Baso # (Auto) 0.1 th/mm3 (0.0-0.2); Baso % (Auto) 0.3 % (0.0-2.0); Eos % (Auto) 0.1 % (0.0-4.0); Hematocrit 30.1 % (35.0-46.0); Hemoglobin 9.9 gm/dL (11.6-15.3); Lymph # (Auto) 0.5 th/mm3 (1.0-4.8); Lymph % (Auto) 1.8 % (9.0-44.0); Mean Corpuscular Hemoglobin 28.6 pg (27.0-34.0); Mean Corpuscular Volume 86.9 fL (80.0-100.0); Mean Platelet Volume 9.2 fL (7.0-11.0); Mono # (Auto) 0.9 th/mm3 (0.0-0.9); Mono % (Auto) 3.1 % (0.0-8.0); Neut # (Auto) 28.9 th/mm3 (1.8-7.7); Neut % (Auto) 94.7 % (16.0-70.0); Platelet Count 378 th/mm3 (150-450); Red Blood Count 3.47 mil/mm3 (4.00-5.30); White Blood Count 30.4 th/mm3 (4.0-11.0)
[2018-05-05 07:26] LABS: Chloride 99 meq/L (98-107); Potassium 4.5 meq/L (3.5-5.1); Sodium 129 meq/L (136-145)
[2018-05-05 07:31] LABS: Anion Gap 10 meq/L (5-15); Blood Urea Nitrogen 13 mg/dL (7-18); Calcium 6.2 mg/dL (8.5-10.1); Carbon Dioxide 20.1 meq/L (21.0-32.0); Glucose,Random 102 mg/dL (74-106)
[2018-05-05 07:47] LABS: Glomerular Filtration Rate Greater Than 89 mL/min (>89); Total Protein 5.4 g/dL (6.4-8.2)
[2018-05-05] MEDS: predniSONE 20 MG Tablet PO SCH (08:31)
[2018-05-05] MEDS: Fluconazole 100 MG Tablet PO SCH (08:32)
[2018-05-05] MEDS: Magnesium Oxide 400 MG Tablet PO SCH ×2 (08:32→20:57)
[2018-05-05] MEDS: Famotidine 20 MG Tablet PO SCH ×2 (08:32→20:57)
[2018-05-05] MEDS: Lactobacillus Acidophilus/L. Spores Tablet PO SCH ×3 (08:33→17:01)
[2018-05-05] MEDS: Nystatin Liq 500,000 UNIT/5 ML UDC SWISH-SWAL SCH ×4 (08:33→20:56)
[2018-05-05] MEDS: ALPRAZolam 0.25 MG Tablet PO PRN ×2 (08:33→21:06)
[2018-05-05] MEDS: Sodium Chloride 1 GM Tablet PO SCH (08:33)
[2018-05-05] MEDS: Calcium/Vitamin D 250/125 MG Tablet PO SCH ×2 (08:36→20:57)
[2018-05-05 08:38] LABS: Lymphocytes 3 % (9-44); Metamyelocytes 3 % (0-1); Monocytes 6 % (0-8)
[2018-05-05 08:40] LABS: Platelet Estimate Normal (Normal); Platelet Morphology Normal (Normal); RBC Morphology Normal (Normal)
[2018-05-06] MEDS: Morphine Sulfate Inj 2 MG/ML Vial IV.PUSH PRN ×2 (01:22→20:36)
[2018-05-06] MEDS: Sodium Chloride 1 GM Tablet PO SCH ×3 (01:22→20:30)
[2018-05-06] MEDS ORDERED: Ketorolac Inj 30 MG/ML (IVP) Vial IV.PUSH ONE (06:42)
--- NOTE | 2018-05-06 06:56 | P.PN ---
Subjective Interval history: Weakness and soreness slowly improving. Failed trial without Garcia requiring reinsertion of Garcia early this morning due to urinary retention. Physical Exam Vital signs: Vital Signs 05/05/18 08:00 05/05/18 12:00 05/05/18 16:00 Temperature 97.8 F 96.7 F L 97.1 F L Pulse Rate 74 72 78 Respiratory Rate 18 18 18 Blood Pressure 120/62 120/66 122/61 Pulse Oximetry 97 97 97 05/05/18 20:00 05/06/18 00:00 05/06/18 04:00 Temperature 97.4 F L 96.9 F L 97.3 F L Pulse Rate 75 80 75 Respiratory Rate 20 20 20 Blood Pressure 140/66 123/69 124/65 Pulse Oximetry 95 97 97 Intake & Output 05/05/18 05/05/18 05/06/18 06:59 18:59 06:59 Intake Total 1502.5 / 1502.5 600 / 600 1000 / 1000 Output Total 400 / 400 560 / 560 550 / 550 Balance 1102.5 / 1102.5 40 / 40 450 / 450 Weight 63.5 kg Intake: IV 1262.5 / 1262.5 1000 / 1000 NS + KCl 40 mEq Inj 1,000 ML @ 1000 / 1000 1000 / 1000 60 mls/hr IV.CONT .[id number] BALA Rx#:[id number] Vancomycin Inj 1,250 MG In NS 262.5 / 262.5 Inj 250 ML @ 250 mls/hr IV.SIG Q18H BALA Rx#:[id number] Oral 240 / 240 600 / 600 0 / 0 Output: Urine 400 / 400 550 / 550 Urine Amount (Catheter) 560 / 560 Indwelling Urethral Catheter 560 / 560 Other: # Incontinent Voids 2 Date of Last Bowel Movement 05/03/18 # Bowel Movements 1 1 Narrative: GENERAL: Sleeping, arouses to voice, alert and oriented. Quite pleasant and cooperative. No acute distress. SKIN: Warm and dry. Small area of ecchymosis anterior left knee which she reports is chronic. HEAD: Atraumatic. Normocephalic. EYES: Pupils equal and round. No scleral icterus. No injection or drainage. ENT: No nasal bleeding or discharge. Mucous membranes pink and moist. NECK: Trachea midline. No JVD. CARDIOVASCULAR: Occasional extrasystole but otherwise regular rate and rhythm. Soft 2 out of 6 systolic ejection murmur noted along the third space left sternal border. RESPIRATORY: No accessory muscle use. Clear to auscultation. Breath sounds equal bilaterally. GASTROINTESTINAL: Abdomen soft, non-tender, nondistended. Hepatic and splenic margins not palpable. MUSCULOSKELETAL: Extremities without clubbing, cyanosis. Moves all extremities but global weakness noted. Trace to 1+ edema globally. No obvious deformities. NEUROLOGICAL: No obvious cranial nerve deficits. Motor grossly within normal limits. Normal speech. PSYCHIATRIC: Appropriate mood and affect; insight and judgment normal. - Urinary Catheter Management Indwelling Urethral Catheter Cath placed during this visit: yes Reason for continuing: Chronic Urinary Retention Insertion date: 05/06/18 Insertion time: 03:00 Results - Labs CBC & Chem 7: 05/05/18 06:00 05/05/18 06:00 Laboratory Results - last 24 hr 05/01/18 05/05/18 05/05/18 20:45 06:00 06:00 CBC w Diff Slide review pending WBC 30.4 H RBC 3.47 L Hgb 9.9 L Hct 30.1 L MCV 86.9 MCH 28.6 MCHC 33.0 RDW 15.0 Plt Count 378 MPV 9.2 Neut % (Auto) 94.7 H Lymph % (Auto) 1.8 L [place] % (Auto) 3.1 Eos % (Auto) 0.1 Baso % (Auto) 0.3 Neut # (Auto) 28.9 H Lymph # (Auto) 0.5 L [place] # (Auto) 0.9 Eos # (Auto) 0.0 Baso # (Auto) 0.1 WBC Differential Manual diff final Seg Neuts % (Manual) 82 H Band Neuts % (Manual) 6 Lymphocytes % (Manual) 3 L Monocytes % (Manual) 6 Metamyelocytes % (Man) 3 H Abs Neuts (Manual) 27.7 H Differential Comment . Platelet Estimate Normal Platelet Morphology Normal RBC Morphology Normal Sodium 129 L Potassium 4.5 Chloride 99 Carbon Dioxide 20.1 L Anion Gap 10 BUN 13 Creatinine 0.45 L Estimated GFR Greater than 89 Random Glucose 102 Calcium 6.2 L* Prot Corrected Calcium 7.0 L* Total Protein 5.4 L Stool Lactoferrin Positive A Assessment and Plan - Assessment (1) Inflammatory polyarthropathy of multiple sites Code(s): M06.4 - Inflammatory polyarthropathy Status: Acute Plan: Possibly associated with underlying connective tissue disorder that was exacerbated by Reclast administration based on historical presentation and onset of symptomatology. Seems to be slowly improving with steroid administration. Her mother had rheumatoid arthritis. (2) Acute hyponatremia Code(s): E87.1 - Hypo-osmolality and hyponatremia Status: Acute Plan: Improving slowly. Appreciate nephrology input. Continue current therapy. (3) Fever Code(s): R50.9 - Fever, unspecified Status: Acute Plan: Her fever has resolved. She has been afebrile for several days. (4) Acute diarrhea Code(s): R19.7 - Diarrhea, unspecified Status: Acute Plan: Much improved. (5) Urinary retention Code(s): R33.9 - Retention of urine, unspecified Status: Acute Plan: Failed Garcia removal trial yesterday requiring reinsertion of Garcia around 2 AM this morning. (6) Hypocalcemia Code(s): E83.51 - Hypocalcemia Status: Acute Plan: Replace and recheck. Appreciate nephrology input. Encourage p.o. intake. (7) Hyperlipidemia Code(s): E78.5 - Hyperlipidemia, unspecified Status: Chronic (8) Paroxysmal atrial fibrillation Code(s): I48.0 - Paroxysmal atrial fibrillation Status: Chronic Plan: Continue Eliquis. Rate controlled. DC telemetry. (9) Pulmonary hypertension Code(s): I27.20 - Pulmonary hypertension, unspecified Status: Chronic Plan: Patient has mild dyspnea which is been present for years relating to her mitral valve she says. This is unchanged. (10) Hypothyroidism Code(s): E03.9 - Hypothyroidism, unspecified Status: Chronic Plan: TSH at goal. Continue current therapy. (11) Elevated lipase Code(s): R74.8 - Abnormal levels of other serum enzymes Status: Acute Plan: Lipase levels normalized. No clinical evidence of pancreatitis on exam.
[2018-05-06] MEDS ORDERED: Calcium Chloride Inj 1 GM/10 ML Syringe IV.PUSH ONE (06:57)
[2018-05-06 08:21] LABS: Baso % (Auto) 0.1 % (0.0-2.0); Eos # (Auto) 0.1 th/mm3 (0.0-0.4); Eos % (Auto) 0.2 % (0.0-4.0); Hematocrit 28.2 % (35.0-46.0); Hemoglobin 9.9 gm/dL (11.6-15.3); Lymph # (Auto) 0.9 th/mm3 (1.0-4.8); Lymph % (Auto) 2.9 % (9.0-44.0); Mean Corpuscular Hemoglobin 29.6 pg (27.0-34.0); Mean Corpuscular Volume 84.5 fL (80.0-100.0); Mean Platelet Volume 9.6 fL (7.0-11.0); Mono # (Auto) 1.6 th/mm3 (0.0-0.9); Neut # (Auto) 28.8 th/mm3 (1.8-7.7); Neut % (Auto) 91.8 % (16.0-70.0); Platelet Count 375 th/mm3 (150-450); Red Blood Count 3.34 mil/mm3 (4.00-5.30); Red Cell Distribution Width 15.6 % (11.6-17.2); White Blood Count 31.4 th/mm3 (4.0-11.0)
[2018-05-06 08:38] LABS: Chloride 100 meq/L (98-107); Potassium 4.7 meq/L (3.5-5.1); Sodium 130 meq/L (136-145)
[2018-05-06 08:51] LABS: Anion Gap 8 meq/L (5-15); Blood Urea Nitrogen 16 mg/dL (7-18); Calcium 6.4 mg/dL (8.5-10.1); Carbon Dioxide 22.2 meq/L (21.0-32.0); Glomerular Filtration Rate Greater Than 89 mL/min (>89); Glucose,Random 89 mg/dL (74-106)
[2018-05-06 09:11] LABS: Total Protein 5.5 g/dL (6.4-8.2)
--- NOTE | 2018-05-06 09:16 | P.PNNP ---
Subjective Interval history: This is the note for 05/05/18, a late entry. Patient seen in the afternoon, alert, no SOB, still not eating well. Physical Exam Vital signs: Vital Signs 05/05/18 12:00 05/05/18 16:00 05/05/18 20:00 Temperature 96.7 F L 97.1 F L 97.4 F L Pulse Rate 72 78 75 Respiratory Rate 18 18 20 Blood Pressure 120/66 122/61 140/66 Pulse Oximetry 97 97 95 05/06/18 00:00 05/06/18 04:00 05/06/18 08:00 Temperature 96.9 F L 97.3 F L 97.1 F L Pulse Rate 80 75 77 Respiratory Rate 20 20 18 Blood Pressure 123/69 124/65 136/68 Pulse Oximetry 97 97 97 Intake & Output 05/05/18 05/06/18 05/06/18 18:59 06:59 18:59 Intake Total 600 / 600 1000 / 1000 Output Total 560 / 560 550 / 550 Balance 40 / 40 450 / 450 Weight 63.5 kg Intake: IV 1000 / 1000 NS + KCl 40 mEq Inj 1,000 ML @ 1000 / 1000 60 mls/hr IV.CONT .[id number] [facility] Rx#:[id number] Oral 600 / 600 0 / 0 Output: Urine 550 / 550 Urine Amount (Catheter) 560 / 560 Indwelling Urethral Catheter 560 / 560 Other: # Incontinent Voids 2 Date of Last Bowel Movement 05/03/18 # Bowel Movements 1 1 Narrative: GENERAL: Sleeping, arouses to voice, alert and oriented. Quite pleasant and cooperative. No acute distress. SKIN: Warm and dry. Small area of ecchymosis anterior left knee which she reports is chronic. HEAD: Atraumatic. Normocephalic. EYES: Pupils equal and round. No scleral icterus. No injection or drainage. ENT: No nasal bleeding or discharge. Mucous membranes pink and moist. NECK: Trachea midline. No JVD. CARDIOVASCULAR: Occasional extrasystole but otherwise regular rate and rhythm. Soft 2 out of 6 systolic ejection murmur noted along the third space left sternal border. RESPIRATORY: No accessory muscle use. Clear to auscultation. Breath sounds equal bilaterally. GASTROINTESTINAL: Abdomen soft, non-tender, nondistended. Hepatic and splenic margins not palpable. MUSCULOSKELETAL: Extremities without clubbing, cyanosis. Moves all extremities but global weakness noted. Trace to 1+ edema globally. No obvious deformities. NEUROLOGICAL: No obvious cranial nerve deficits. Motor grossly within normal limits. Normal speech. PSYCHIATRIC: Appropriate mood and affect; insight and judgment normal. - Urinary Catheter Management Indwelling Urethral Catheter Cath placed during this visit: yes Reason for continuing: Chronic Urinary Retention Insertion date: 05/06/18 Insertion time: 03:00 Assessment and Plan - Plan ASSESSMENT AND PLAN: 1. Hyponatremia. 2. Electrolyte imbalance with low potassium and low calcium and low magnesium. 3. Metabolic acidosis. 4. Urinary tract infection. 5. Leukocytosis. 6. Anemia. 7. Hypothyroidism. Patient with recurrent Hyponatremia, clinically euvolemic. Urine osmolality is elevated, Has an element of SIADH along with low oral intake. Now on Oral Nacl. Sodium is 129, follow sodium level. Encourage oral intake. D/W the daughter and son, for fluid restriction. Patient is at high risk for recurrent Hyponatremia due to high urine osmolality.
[2018-05-06] MEDS: predniSONE 20 MG Tablet PO SCH (09:32)
[2018-05-06] MEDS: Lactobacillus Acidophilus/L. Spores Tablet PO SCH ×3 (09:33→18:17)
[2018-05-06] MEDS: Fluconazole 100 MG Tablet PO SCH (09:33)
[2018-05-06] MEDS: Magnesium Oxide 400 MG Tablet PO SCH ×2 (09:34→20:29)
[2018-05-06] MEDS: Famotidine 20 MG Tablet PO SCH ×2 (09:34→20:30)
[2018-05-06] MEDS: Nystatin Liq 500,000 UNIT/5 ML UDC SWISH-SWAL SCH ×4 (09:34→20:30)
[2018-05-06] MEDS: Calcium/Vitamin D 250/125 MG Tablet PO SCH ×2 (09:46→20:30)
[2018-05-06 10:27] LABS: Lymphocytes 1 % (9-44); Metamyelocytes 1 % (0-1); Monocytes 5 % (0-8)
[2018-05-06 10:28] LABS: Platelet Estimate Normal (Normal); Platelet Morphology Normal (Normal)
[2018-05-06] MEDS ORDERED: Calcium Chloride Inj 1 GM in Sodium Chlor 0.9% Inj 100 ML IV.SIG ONE (11:00)
--- NOTE | 2018-05-06 14:53 | P.PNNP ---
Subjective Interval history: Patient is alert, eating well, not in distress. Physical Exam Vital signs: Vital Signs 05/05/18 16:00 05/05/18 20:00 05/06/18 00:00 Temperature 97.1 F L 97.4 F L 96.9 F L Pulse Rate 78 75 80 Respiratory Rate 18 20 20 Blood Pressure 122/61 140/66 123/69 Pulse Oximetry 97 95 97 05/06/18 04:00 05/06/18 08:00 05/06/18 12:00 Temperature 97.3 F L 97.1 F L 97.5 F L Pulse Rate 75 77 75 Respiratory Rate 20 18 18 Blood Pressure 124/65 136/68 121/62 Pulse Oximetry 97 97 97 Intake & Output 05/05/18 05/06/18 05/06/18 18:59 06:59 18:59 Intake Total 600 / 600 1000 / 1000 110 / 110 Output Total 560 / 560 550 / 550 Balance 40 / 40 450 / 450 110 / 110 Weight 63.5 kg Intake: IV 1000 / 1000 110 / 110 NS + KCl 40 mEq Inj 1,000 ML @ 1000 / 1000 60 mls/hr IV.CONT .[id number] [facility] Rx#:[id number] Calcium Chloride Inj 1 GM In NS 110 / 110 Inj 100 ML @ 110 mls/hr IV.SIG ONCE ONE Rx#:[id number] Oral 600 / 600 0 / 0 Output: Urine 550 / 550 Urine Amount (Catheter) 560 / 560 Indwelling Urethral Catheter 560 / 560 Other: # Incontinent Voids 2 Date of Last Bowel Movement 05/03/18 # Bowel Movements 1 1 Narrative: GENERAL: Sleeping, arouses to voice, alert and oriented. Quite pleasant and cooperative. No acute distress. SKIN: Warm and dry. Small area of ecchymosis anterior left knee which she reports is chronic. HEAD: Atraumatic. Normocephalic. EYES: Pupils equal and round. No scleral icterus. No injection or drainage. ENT: No nasal bleeding or discharge. Mucous membranes pink and moist. NECK: Trachea midline. No JVD. CARDIOVASCULAR: Occasional extrasystole but otherwise regular rate and rhythm. Soft 2 out of 6 systolic ejection murmur noted along the third space left sternal border. RESPIRATORY: No accessory muscle use. Clear to auscultation. Breath sounds equal bilaterally. GASTROINTESTINAL: Abdomen soft, non-tender, nondistended. Hepatic and splenic margins not palpable. MUSCULOSKELETAL: Extremities without clubbing, cyanosis. Moves all extremities but global weakness noted. Trace to 1+ edema globally. No obvious deformities. NEUROLOGICAL: No obvious cranial nerve deficits. Motor grossly within normal limits. Normal speech. PSYCHIATRIC: Appropriate mood and affect; insight and judgment normal. - Urinary Catheter Management Indwelling Urethral Catheter Cath placed during this visit: yes Reason for continuing: Chronic Urinary Retention Insertion date: 05/06/18 Insertion time: 03:00 Assessment and Plan - Plan ASSESSMENT AND PLAN: 1. Hyponatremia. 2. Electrolyte imbalance with low potassium and low calcium and low magnesium. 3. Metabolic acidosis. 4. Urinary tract infection. 5. Leukocytosis. 6. Anemia. 7. Hypothyroidism. Patient with recurrent Hyponatremia, clinically euvolemic. Urine osmolality is elevated, Has an element of SIADH along with low oral intake. Now on Oral Nacl. Sodium is 130, follow sodium level. Encourage oral intake. Patient is at high risk for recurrent Hyponatremia due to high urine osmolality. Continue fluid restriction.
[2018-05-06] MEDS: Diphenoxylate/Atropine 2.5/0.025 MG Tablet PO PRN ×2 (15:01→20:36)
[2018-05-06] MEDS: ALPRAZolam 0.25 MG Tablet PO PRN (20:36)
[2018-05-07] MEDS: Morphine Sulfate Inj 2 MG/ML Vial IV.PUSH PRN (06:34)
--- NOTE | 2018-05-07 07:12 | P.PN ---
Subjective Interval history: Reports that her strength in her upper extremities improved yesterday. She also reports less tenderness to palpation in her upper extremities. Still has some weakness particularly in her lower extremities. Her edema is improving. Tolerating oral intake. Reports approximately 3-4 loose bowel movements per day but they are no longer watery. Denies any blood in the stool. Abdominal pain improved. Physical Exam Vital signs: Vital Signs 05/06/18 08:00 05/06/18 12:00 05/06/18 16:00 Temperature 97.1 F L 97.5 F L 97.5 F L Pulse Rate 77 75 74 Respiratory Rate 18 18 18 Blood Pressure 136/68 121/62 126/68 Pulse Oximetry 97 97 97 05/06/18 20:00 05/07/18 00:00 Temperature 93.6 F L 95.6 F L Pulse Rate 75 76 Respiratory Rate 20 20 Blood Pressure 132/78 117/73 Pulse Oximetry 98 99 Intake & Output 05/06/18 05/07/18 05/07/18 18:59 06:59 18:59 Intake Total 1470 / 1470 240 / 240 Output Total 600 / 600 400 / 400 Balance 870 / 870 -160 / -160 Weight 63.7 kg Intake: IV 1110 / 1110 NS + KCl 40 mEq Inj 1,000 ML @ 1000 / 1000 60 mls/hr IV.CONT .[id number] [facility] Rx#:[id number] Calcium Chloride Inj 1 GM In NS 110 / 110 Inj 100 ML @ 110 mls/hr IV.SIG ONCE ONE Rx#:[id number] Oral 360 / 360 240 / 240 Output: Urine 600 / 600 400 / 400 Other: Date of Last Bowel Movement 05/06/18 # Bowel Movements 1 2 Narrative: GENERAL: Awake, alert and oriented. Quite pleasant and cooperative. No acute distress. SKIN: Warm and dry. Small area of ecchymosis anterior left knee which she reports is chronic and stable. HEAD: Atraumatic. Normocephalic. EYES: Pupils equal and round. No scleral icterus. No injection or drainage. ENT: No nasal bleeding or discharge. Mucous membranes pink and moist. NECK: Trachea midline. No JVD. CARDIOVASCULAR: Occasional extrasystole but otherwise regular rate and rhythm. Soft 2 out of 6 systolic ejection murmur noted and stable. RESPIRATORY: No accessory muscle use. Clear to auscultation. Breath sounds equal bilaterally. GASTROINTESTINAL: Abdomen soft, non-tender, nondistended. Hepatic and splenic margins not palpable. Bowel sounds normal. MUSCULOSKELETAL: Extremities without clubbing, cyanosis. Moves all extremities but global weakness noted. Strength in upper extremities appears improved today. Trace edema globally. No obvious deformities. NEUROLOGICAL: No obvious cranial nerve deficits. Motor grossly within normal limits with the exception of global weakness is noted. Normal speech. PSYCHIATRIC: Appropriate mood and affect; insight and judgment normal. - Urinary Catheter Management Indwelling Urethral Catheter Cath placed during this visit: yes Reason for continuing: Chronic Urinary Retention Insertion date: 05/06/18 Insertion time: 03:00 Results - Labs CBC & Chem 7: 05/06/18 06:33 05/06/18 06:33 Laboratory Results - last 24 hr 05/06/18 05/06/18 06:33 06:33 CBC w Diff Slide review pending WBC 31.4 H RBC 3.34 L Hgb 9.9 L Hct 28.2 L MCV 84.5 MCH 29.6 MCHC 35.0 RDW 15.6 Plt Count 375 MPV 9.6 Neut % (Auto) 91.8 H Lymph % (Auto) 2.9 L Wallace % (Auto) 5.0 Eos % (Auto) 0.2 Baso % (Auto) 0.1 Neut # (Auto) 28.8 H Lymph # (Auto) 0.9 L Wallace # (Auto) 1.6 H Eos # (Auto) 0.1 Baso # (Auto) 0.0 WBC Differential Manual diff final Seg Neuts % (Manual) 89 H Band Neuts % (Manual) 4 Lymphocytes % (Manual) 1 L Monocytes % (Manual) 5 Metamyelocytes % (Man) 1 Abs Neuts (Manual) 29.5 H Differential Comment . Platelet Estimate Normal Platelet Morphology Normal Sodium 130 L Potassium 4.7 Chloride 100 Carbon Dioxide 22.2 Anion Gap 8 BUN 16 Creatinine 0.51 Estimated GFR Greater than 89 Random Glucose 89 Calcium 6.4 L* Prot Corrected Calcium 7.2 L* C-Reactive Protein 13.70 H Total Protein 5.5 L Assessment and Plan - Assessment (1) Inflammatory polyarthropathy of multiple sites Code(s): M06.4 - Inflammatory polyarthropathy Status: Acute Plan: Possibly associated with underlying connective tissue disorder that was exacerbated by Reclast administration based on historical presentation and onset of symptomatology. Seems to be slowly improving with steroid administration. Will give another shot of Toradol today as this seemed to help. Her mother had rheumatoid arthritis. CCP pending (2) Acute hyponatremia Code(s): E87.1 - Hypo-osmolality and hyponatremia Status: Acute Plan: Improving slowly. Appreciate nephrology input. Continue current therapy and close monitoring of fluid intake. (3) Acute diarrhea Code(s): R19.7 - Diarrhea, unspecified Status: Acute Plan: Much improved. Patient reports 3-4 loose bowel movements per day. No hematochezia. Abdominal pain much improved. Gastroenterology has seen the patient and suggested repeat scope but she is holding off at this point. She may repeat once she is stronger. (4) Urinary retention Code(s): R33.9 - Retention of urine, unspecified Status: Acute Plan: Failed Garcia removal trial 05/05 requiring replacement on 05/06. (5) Hypocalcemia Code(s): E83.51 - Hypocalcemia Status: Acute Plan: Replace and recheck. Appreciate nephrology input. Encourage p.o. intake. A.m. labs pending. May give another IV infusion of calcium today if calcium still significantly low. (6) Hyperlipidemia Code(s): E78.5 - Hyperlipidemia, unspecified Status: Chronic (7) Paroxysmal atrial fibrillation Code(s): I48.0 - Paroxysmal atrial fibrillation Status: Chronic Plan: Continue Eliquis. Rate controlled. DC telemetry. (8) Pulmonary hypertension Code(s): I27.20 - Pulmonary hypertension, unspecified Status: Chronic Plan: Patient has mild dyspnea which is been present for years relating to her mitral valve she says. This is unchanged. (9) Hypothyroidism Code(s): E03.9 - Hypothyroidism, unspecified Status: Chronic Plan: TSH at goal. Continue current therapy. (10) Elevated lipase Code(s): R74.8 - Abnormal levels of other serum enzymes Status: Acute Plan: Lipase levels normalized. No clinical evidence of pancreatitis on exam. - Plan Code Status: full
[2018-05-07 07:24] LABS: Baso # (Auto) 0.1 th/mm3 (0.0-0.2); Baso % (Auto) 0.2 % (0.0-2.0); Eos % (Auto) 0.1 % (0.0-4.0); Hematocrit 28.5 % (35.0-46.0); Lymph # (Auto) 0.7 th/mm3 (1.0-4.8); Lymph % (Auto) 2.6 % (9.0-44.0); Mean Corpuscular Hemoglobin 29.8 pg (27.0-34.0); Mean Platelet Volume 9.3 fL (7.0-11.0); Mono % (Auto) 3.7 % (0.0-8.0); Neut # (Auto) 25.9 th/mm3 (1.8-7.7); Neut % (Auto) 93.4 % (16.0-70.0); Platelet Count 378 th/mm3 (150-450); Red Blood Count 3.35 mil/mm3 (4.00-5.30); Red Cell Distribution Width 15.5 % (11.6-17.2); White Blood Count 27.7 th/mm3 (4.0-11.0)
[2018-05-07] MEDS ORDERED: Ketorolac Inj 30 MG/ML (IVP) Vial IV.PUSH ONE (08:00)
[2018-05-07 08:01] LABS: Anion Gap 6 meq/L (5-15); Blood Urea Nitrogen 23 mg/dL (7-18); Calcium 6.7 mg/dL (8.5-10.1); Carbon Dioxide 22.3 meq/L (21.0-32.0); Chloride 104 meq/L (98-107); Glomerular Filtration Rate Greater Than 89 mL/min (>89); Glucose,Random 113 mg/dL (74-106); Potassium 5.6 meq/L (3.5-5.1); Sodium 132 meq/L (136-145)
[2018-05-07] MEDS: predniSONE 20 MG Tablet PO SCH (08:04)
[2018-05-07] MEDS: Sodium Chloride 1 GM Tablet PO SCH ×2 (08:04→20:20)
[2018-05-07] MEDS: Lactobacillus Acidophilus/L. Spores Tablet PO SCH ×3 (08:04→17:08)
[2018-05-07] MEDS: Diphenoxylate/Atropine 2.5/0.025 MG Tablet PO PRN (08:04)
[2018-05-07] MEDS: Fluconazole 100 MG Tablet PO SCH (08:05)
[2018-05-07] MEDS: Nystatin Liq 500,000 UNIT/5 ML UDC SWISH-SWAL SCH ×4 (08:05→20:17)
[2018-05-07] MEDS: Calcium/Vitamin D 250/125 MG Tablet PO SCH ×2 (08:05→20:17)
[2018-05-07] MEDS: Famotidine 20 MG Tablet PO SCH ×2 (08:05→20:20)
[2018-05-07 08:31] LABS: Total Protein 5.3 g/dL (6.4-8.2)
[2018-05-07] MEDS ORDERED: Calcium Chloride Inj 1 GM in Sodium Chlor 0.9% Inj 100 ML IV.SIG ONE (11:00)
[2018-05-07] MEDS: Sod Chloride 0.9% Inj 1,000 ML IV.CONT SCH (12:07)
[2018-05-07] MEDS: Magnesium Oxide 400 MG Tablet PO SCH (12:08)
--- NOTE | 2018-05-07 17:51 | P.PNNP ---
Subjective Interval history: Patient is alert, no SOB, eating better. Physical Exam Vital signs: Vital Signs 05/06/18 20:00 05/07/18 00:00 05/07/18 08:00 Temperature 93.6 F L 95.6 F L 97.4 F L Pulse Rate 75 76 74 Respiratory Rate 20 20 18 Blood Pressure 132/78 117/73 114/68 Pulse Oximetry 98 99 97 05/07/18 12:00 05/07/18 14:00 05/07/18 16:00 Temperature 98.0 F 97.4 F L Pulse Rate 79 75 Respiratory Rate 18 16 18 Blood Pressure 122/82 127/69 Pulse Oximetry 95 98 Intake & Output 05/06/18 05/07/18 05/07/18 18:59 06:59 18:59 Intake Total 1470 / 1470 240 / 240 1210 / 1210 Output Total 600 / 600 400 / 400 Balance 870 / 870 -160 / -160 1210 / 1210 Weight 63.7 kg Intake: IV 1110 / 1110 1210 / 1210 NS + KCl 40 mEq Inj 1,000 ML @ 1000 / 1000 1100 / 1100 60 mls/hr IV.CONT .[id number] [facility] Rx#:[id number] Calcium Chloride Inj 1 GM In NS 110 / 110 110 / 110 Inj 100 ML @ 110 mls/hr IV.SIG ONCE ONE Rx#:[id number] Oral 360 / 360 240 / 240 Output: Urine 600 / 600 400 / 400 Other: Date of Last Bowel Movement 05/06/18 05/07/18 # Bowel Movements 1 2 Narrative: GENERAL: Awake, alert and oriented. Quite pleasant and cooperative. No acute distress. SKIN: Warm and dry. Small area of ecchymosis anterior left knee which she reports is chronic and stable. HEAD: Atraumatic. Normocephalic. EYES: Pupils equal and round. No scleral icterus. No injection or drainage. ENT: No nasal bleeding or discharge. Mucous membranes pink and moist. NECK: Trachea midline. No JVD. CARDIOVASCULAR: Occasional extrasystole but otherwise regular rate and rhythm. Soft 2 out of 6 systolic ejection murmur noted and stable. RESPIRATORY: No accessory muscle use. Clear to auscultation. Breath sounds equal bilaterally. GASTROINTESTINAL: Abdomen soft, non-tender, nondistended. Hepatic and splenic margins not palpable. Bowel sounds normal. MUSCULOSKELETAL: Extremities without clubbing, cyanosis. Moves all extremities but global weakness noted. Strength in upper extremities appears improved today. Trace edema globally. No obvious deformities. NEUROLOGICAL: No obvious cranial nerve deficits. Motor grossly within normal limits with the exception of global weakness is noted. Normal speech. PSYCHIATRIC: Appropriate mood and affect; insight and judgment normal. - Urinary Catheter Management Indwelling Urethral Catheter Cath placed during this visit: yes Reason for continuing: Acute urinary retention Insertion date: 05/06/18 Insertion time: 03:00 Assessment and Plan - Plan ASSESSMENT AND PLAN: 1. Hyponatremia. 2. Electrolyte imbalance with low potassium and low calcium and low magnesium. 3. Metabolic acidosis. 4. Urinary tract infection. 5. Leukocytosis. 6. Anemia. 7. Hypothyroidism. Patient with recurrent Hyponatremia, clinically euvolemic. Urine osmolality is elevated, Has an element of SIADH along with low oral intake. Now on Oral Nacl. Sodium is 132, follow sodium level. Encourage oral intake. Patient is at high risk for recurrent Hyponatremia due to high urine osmolality. Continue fluid restriction and encourage oral intake.
--- NOTE | 2018-05-07 19:58 | MB ---
cc: Waqas Rich MD DATE: 05/07/2018 REASON FOR CONSULTATION: Consult requested by Dr. Mcclendon for evaluation of leukocytosis. HISTORY OF PRESENT ILLNESS: Yanna is a 73-year-old female. She has multiple medical problems. She said that she recently had Reclast for osteoporosis and since then, she has not been feeling well. She states that she has swelling and pain in her joints. She also had developed severe diarrhea. She came into the emergency room with these symptoms. She is now admitted to the hospital. On admission, her CBC showed a white count of 16.1 with neutrophilia. The patient has been placed on antibiotics and steroids. Her white count went up to 30,000 two days ago and yesterday was 31,000. Hematology is consulted for further evaluation. The patient states that the swelling and discomfort in her joints have improved since she has been on steroids. She denies any previous history of leukocytosis. She has significant diarrhea. The C. difficile is negative. Blood cultures are negative. Urine culture is negative. Stools are positive for moderate WBCs. Her C-reactive protein is very high. ESR is very high as well. PARVIZ is negative. Rheumatoid factor is negative. CCP is still pending REVIEW OF SYSTEMS: The rest of the review of systems is negative. PAST MEDICAL HISTORY: Hypercholesterolemia, atrial fibrillation, carotid stenosis, hypertension, sleep apnea syndrome, osteoporosis, coronary artery disease, fatty liver, hypothyroidism. PAST SURGICAL HISTORY: Tonsillectomy, adenoidectomy, appendectomy, mitral valve repair, open reduction and internal fixation of left hip. ALLERGIES: 1. CODEINE. 2. DEMEROL. 3. KEFLEX. MEDICATIONS: Prior to coming to the hospital: 1. Eliquis. 2. Levothyroxine. 3. Rosuvastatin. 4. Sotalol. 5. Amlodipine. 6. Enalapril. FAMILY HISTORY: Her mother from leukemia. SOCIAL HISTORY: The patient does not smoke cigarettes, occasionally drinks alcohol. 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 PHYSICAL EXAMINATION: GENERAL: This is a well-developed, well-nourished, elderly, white female in no apparent distress. VITAL SIGNS: Temperature 97.4, heart rate 75, blood pressure 127/69. HEENT: PERRLA. EOMI. Anicteric. No oral lesions noted. NECK: No lymphadenopathy noted. LUNGS: Clear. No wheezing, rhonchi or rales. HEART: Irregularly irregular. ABDOMEN: Soft. EXTREMITIES: No pedal edema. NEUROLOGIC: Awake, alert, oriented x3. SKIN: No significant lesions are noted. ASSESSMENT: 1. Leukocytosis with neutrophilia, monocytosis and bandemia. This is most likely due to inflammation, infection as well as steroids. However, myeloproliferative disorder cannot be ruled out at this time. 2. Normocytic normochromic anemia, most likely anemia of chronic disease/inflammation. PLAN: I have reviewed her available records and I have discussed with the patient regarding the leukocytosis and mild anemia. Her white count today came down to 27. Yesterday, it was 31. On admission, 04/28/2018, her white count was 16.6. It remains persistently high and got worse since she has been placed on steroids. She has a left-sided shift, which I believe is due to an acute inflammation and possible infection. I do not see any peripheral blasts. Therefore, I do not think that we are dealing with leukemia. Her sedimentation rate is very high at 64 and the C-reactive protein is also high at 13.7, which goes along with severe inflammation. She is also on steroids for inflammatory polyarthritis and certainly, steroids can cause demargination and leukocytosis with neutrophilia. Once her steroids are tapered down, then I expect her white count to improve. I will order JAK2 mutation and BCR-ABL to evaluate for any myeloproliferative disorder. However, my clinical suspicion for that is very low. Our team will follow while she is in the hospital. Thank you for asking my opinion. MD DUSTY Rebolledo/milton , 07:22 PM , 07:36 PM ELLEN
[2018-05-07] MEDS: ALPRAZolam 0.25 MG Tablet PO PRN (20:20)
[2018-05-08] MEDS: Sod Chloride 0.9% Inj 1,000 ML IV.CONT SCH (05:49)
[2018-05-08 06:56] LABS: Baso # (Auto) 0.1 th/mm3 (0.0-0.2); Baso % (Auto) 0.2 % (0.0-2.0); Eos # (Auto) 0.1 th/mm3 (0.0-0.4); Eos % (Auto) 0.2 % (0.0-4.0); Hematocrit 32.5 % (35.0-46.0); Hemoglobin 10.6 gm/dL (11.6-15.3); Lymph % (Auto) 3.2 % (9.0-44.0); Mean Corpuscular HGB Conc 32.5 % (32.0-36.0); Mean Corpuscular Hemoglobin 28.3 pg (27.0-34.0); Mean Corpuscular Volume 87.3 fL (80.0-100.0); Mono # (Auto) 1.2 th/mm3 (0.0-0.9); Mono % (Auto) 3.9 % (0.0-8.0); Neut % (Auto) 92.5 % (16.0-70.0); Platelet Count 446 th/mm3 (150-450); Red Blood Count 3.72 mil/mm3 (4.00-5.30); White Blood Count 31.4 th/mm3 (4.0-11.0)
[2018-05-08 07:02] LABS: Chloride 104 meq/L (98-107); Potassium 5.9 meq/L (3.5-5.1); Sodium 132 meq/L (136-145)
--- NOTE | 2018-05-08 07:06 | P.PN ---
Subjective Interval history: Patient reports improvement in her swelling as well as her strength. Her pain is controlled with oral pain medication now. She is anxious to attempt more physical therapy today. Physical Exam Vital signs: Vital Signs 05/07/18 08:00 05/07/18 12:00 05/07/18 14:00 Temperature 97.4 F L 98.0 F Pulse Rate 74 79 Respiratory Rate 18 18 16 Blood Pressure 114/68 122/82 Pulse Oximetry 97 95 05/07/18 16:00 05/07/18 20:00 05/08/18 00:00 Temperature 97.4 F L 97.5 F L 97.1 F L Pulse Rate 75 75 75 Respiratory Rate 18 16 16 Blood Pressure 127/69 128/71 123/74 Pulse Oximetry 98 96 96 Intake & Output 05/07/18 05/07/18 05/08/18 06:59 18:59 06:59 Intake Total 240 / 240 1810 / 1810 1900 / 1900 Output Total 400 / 400 450 / 450 1200 / 1200 Balance -160 / -160 1360 / 1360 700 / 700 Weight 63.7 kg 63.7 kg Intake: IV 1210 / 1210 1000 / 1000 NS + KCl 40 mEq Inj 1,000 ML @ 1100 / 1100 60 mls/hr IV.CONT .[id number] [facility] Rx#:[id number] NS Inj 1,000 ML @ 60 mls/hr IV. 1000 / 1000 CONT .[id number] [facility] Rx#: [id number] Calcium Chloride Inj 1 GM In NS 110 / 110 Inj 100 ML @ 110 mls/hr IV.SIG ONCE ONE Rx#:[id number] Oral 240 / 240 600 / 600 900 / 900 Output: Urine 400 / 400 450 / 450 1200 / 1200 Other: Date of Last Bowel Movement 05/06/18 05/07/18 05/07/18 # Bowel Movements 2 1 1 Narrative: GENERAL: Awake, alert and oriented. Quite pleasant and cooperative. No acute distress. SKIN: Warm and dry. Small area of ecchymosis anterior left knee which she reports is chronic and stable. HEAD: Atraumatic. Normocephalic. EYES: Pupils equal and round. No scleral icterus. No injection or drainage. ENT: No nasal bleeding or discharge. NECK: Trachea midline. No JVD. CARDIOVASCULAR: Regular rate and rhythm. Soft 2 out of 6 systolic ejection murmur noted and stable. RESPIRATORY: No accessory muscle use. Clear to auscultation. Breath sounds equal bilaterally. GASTROINTESTINAL: Abdomen soft, non-tender, nondistended. Hepatic and splenic margins not palpable. Bowel sounds normal. MUSCULOSKELETAL: Extremities without clubbing, cyanosis. Moves all extremities but mild global weakness noted which seems to affect her lower extremities more. Trace edema globally. No obvious deformities. NEUROLOGICAL: No obvious cranial nerve deficits. Motor grossly within normal limits with the exception of global weakness is noted. Normal speech. PSYCHIATRIC: Appropriate mood and affect; insight and judgment normal. - Urinary Catheter Management Indwelling Urethral Catheter Cath placed during this visit: yes Reason for continuing: Acute urinary retention Insertion date: 05/06/18 Insertion time: 03:00 Results - Labs CBC & Chem 7: 05/07/18 06:25 05/07/18 06:25 Laboratory Results - last 24 hr 05/07/18 05/07/18 05/07/18 06:25 06:25 06:25 CBC w Diff Auto diff final WBC 27.7 H RBC 3.35 L Hgb 10.0 L Hct 28.5 L MCV 85.0 MCH 29.8 MCHC 35.0 RDW 15.5 Plt Count 378 MPV 9.3 Neut % (Auto) 93.4 H Lymph % (Auto) 2.6 L Graham % (Auto) 3.7 Eos % (Auto) 0.1 Baso % (Auto) 0.2 Neut # (Auto) 25.9 H Lymph # (Auto) 0.7 L Graham # (Auto) 1.0 H Eos # (Auto) 0.0 Baso # (Auto) 0.1 WBC Differential . Differential Comment . Sodium 132 L Potassium 5.6 H D Chloride 104 Carbon Dioxide 22.3 Anion Gap 6 BUN 23 H Creatinine 0.50 Estimated GFR Greater than 89 Random Glucose 113 H Calcium 6.7 L* Prot Corrected Calcium 7.6 L Total Creatine Kinase 32 Total Protein 5.3 L Assessment and Plan - Assessment (1) Inflammatory polyarthropathy of multiple sites Code(s): M06.4 - Inflammatory polyarthropathy Status: Acute Plan: Possibly associated with underlying connective tissue disorder that was exacerbated by Reclast administration based on historical presentation and onset of symptomatology. Seems to be slowly improving with steroid administration. Toradol injection helped again yesterday. Her mother had rheumatoid arthritis. CCP pending. Significant leukocytosis thought to be associated with underlying inflammatory response and steroid use. Appreciate hematology input. (2) Acute hyponatremia Code(s): E87.1 - Hypo-osmolality and hyponatremia Status: Acute Plan: Improving slowly. Appreciate nephrology input. Continue current therapy and close monitoring of fluid intake. (3) Acute diarrhea Code(s): R19.7 - Diarrhea, unspecified Status: Acute Plan: Much improved. Patient reports 3-4 loose bowel movements per day and most recent stool this morning was more formed. No hematochezia. Abdominal pain much improved. Gastroenterology has seen the patient and suggested repeat scope but she is holding off at this point. She may repeat once she is stronger. (4) Urinary retention Code(s): R33.9 - Retention of urine, unspecified Status: Acute Plan: Failed Garcia removal trial 05/05 requiring replacement on 05/06. We will try to remove Garcia again today for voiding trial. (5) Hypocalcemia Code(s): E83.51 - Hypocalcemia Status: Acute Plan: Replace and recheck. Appreciate nephrology input. Encourage p.o. intake. Calcium improved yesterday after IV infusion. (6) Hyperlipidemia Code(s): E78.5 - Hyperlipidemia, unspecified Status: Chronic Plan: We will hold statin to see if it helps with her myalgias. Her CK is normal. (7) Paroxysmal atrial fibrillation Code(s): I48.0 - Paroxysmal atrial fibrillation Status: Chronic Plan: Continue Eliquis. Rate controlled. Previously DC telemetry. (8) Hypothyroidism Code(s): E03.9 - Hypothyroidism, unspecified Status: Chronic Plan: TSH at goal. Continue current therapy.
[2018-05-08 07:15] LABS: Anion Gap 6 meq/L (5-15); Blood Urea Nitrogen 30 mg/dL (7-18); Calcium 7.2 mg/dL (8.5-10.1); Carbon Dioxide 22.3 meq/L (21.0-32.0); Glomerular Filtration Rate Greater Than 89 mL/min (>89); Glucose,Random 109 mg/dL (74-106)
[2018-05-08 07:28] LABS: Total Protein 5.2 g/dL (6.4-8.2)
[2018-05-08 07:34] LABS: Lymphocytes 2 % (9-44); Monocytes 3 % (0-8)
[2018-05-08] MEDS ORDERED: hydroCHLOROthiazide 25 MG Tablet PO ONE (08:00)
[2018-05-08] MEDS: predniSONE 20 MG Tablet PO SCH (08:19)
[2018-05-08] MEDS: Famotidine 20 MG Tablet PO SCH ×2 (08:20→21:33)
[2018-05-08] MEDS: Lactobacillus Acidophilus/L. Spores Tablet PO SCH ×3 (08:20→19:00)
[2018-05-08] MEDS: Fluconazole 100 MG Tablet PO SCH (08:21)
[2018-05-08] MEDS: Sodium Chloride 1 GM Tablet PO SCH ×2 (08:21→21:32)
[2018-05-08] MEDS: Calcium/Vitamin D 250/125 MG Tablet PO SCH ×2 (08:21→21:33)
[2018-05-08] MEDS: Nystatin Liq 500,000 UNIT/5 ML UDC SWISH-SWAL SCH ×4 (08:21→21:32)
[2018-05-08] MEDS: Magnesium Oxide 400 MG Tablet PO SCH (12:44)
--- NOTE | 2018-05-08 14:45 | P.PNNP ---
Subjective Interval history: Patient seen in AM, sitting on the chair, complain of leg swelling. Physical Exam Vital signs: Vital Signs 05/07/18 16:00 05/07/18 20:00 05/08/18 00:00 Temperature 97.4 F L 97.5 F L 97.1 F L Pulse Rate 75 75 75 Respiratory Rate 18 16 16 Blood Pressure 127/69 128/71 123/74 Pulse Oximetry 98 96 96 05/08/18 08:00 05/08/18 10:00 05/08/18 12:40 Temperature 97.5 F L 97.5 F L Pulse Rate 75 75 Respiratory Rate 20 16 20 Blood Pressure 134/80 131/82 Pulse Oximetry 96 94 L Intake & Output 05/07/18 05/08/18 05/08/18 18:59 06:59 18:59 Intake Total 1810 / 1810 1900 / 1900 Output Total 450 / 450 1200 / 1200 Balance 1360 / 1360 700 / 700 Weight 63.7 kg Intake: IV 1210 / 1210 1000 / 1000 NS + KCl 40 mEq Inj 1,000 ML @ 1100 / 1100 60 mls/hr IV.CONT .[id number] [facility] Rx#:[id number] NS Inj 1,000 ML @ 60 mls/hr IV. 1000 / 1000 CONT .[id number] [facility] Rx#: [id number] Calcium Chloride Inj 1 GM In NS 110 / 110 Inj 100 ML @ 110 mls/hr IV.SIG ONCE ONE Rx#:[id number] Oral 600 / 600 900 / 900 Output: Urine 450 / 450 1200 / 1200 Other: Date of Last Bowel Movement 05/07/18 05/07/18 05/08/18 # Bowel Movements 1 1 Narrative: GENERAL: Awake, alert and oriented. Quite pleasant and cooperative. No acute distress. SKIN: Warm and dry. Small area of ecchymosis anterior left knee which she reports is chronic and stable. HEAD: Atraumatic. Normocephalic. EYES: Pupils equal and round. No scleral icterus. No injection or drainage. ENT: No nasal bleeding or discharge. NECK: Trachea midline. No JVD. CARDIOVASCULAR: Regular rate and rhythm. Soft 2 out of 6 systolic ejection murmur noted and stable. RESPIRATORY: No accessory muscle use. Clear to auscultation. Breath sounds equal bilaterally. GASTROINTESTINAL: Abdomen soft, non-tender, nondistended. Hepatic and splenic margins not palpable. Bowel sounds normal. MUSCULOSKELETAL: Extremities without clubbing, cyanosis. Moves all extremities but mild global weakness noted which seems to affect her lower extremities more. Trace edema globally. No obvious deformities. NEUROLOGICAL: No obvious cranial nerve deficits. Motor grossly within normal limits with the exception of global weakness is noted. Normal speech. PSYCHIATRIC: Appropriate mood and affect; insight and judgment normal. - Urinary Catheter Management Indwelling Urethral Catheter Cath placed during this visit: yes Reason for continuing: Acute urinary retention Insertion date: 05/06/18 Insertion time: 03:00 Assessment and Plan - Plan ASSESSMENT AND PLAN: 1. Hyponatremia. 2. Electrolyte imbalance with low potassium and low calcium and low magnesium. 3. Metabolic acidosis. 4. Urinary tract infection. 5. Leukocytosis. 6. Anemia. 7. Hypothyroidism. Patient with recurrent Hyponatremia, clinically euvolemic. Urine osmolality is elevated, Has an element of SIADH along with low oral intake. Now on Oral Nacl. Sodium is 132, follow sodium level. Encourage oral intake. Patient is at high risk for recurrent Hyponatremia due to high urine osmolality. Continue fluid restriction and encourage oral intake. K is 5.9, IVF stopped, Give one dose of Kayexalate.
[2018-05-08] MEDS ORDERED: Sodium Polystyrene Sulfonate/Sorbitol Liq 15 GM/60 ML UDC PO ONE (15:00)
--- NOTE | 2018-05-08 15:52 | P.PNID ---
Subjective Remarks: ID COVERAGE: Notes reviewed. Afebrile. Still feels very weak.. Eating better. Was up in the bedside chair for about 2 hours today. Required assistance of 2 employees to get out of bed. First time since admission. Diffuse edema. Had good urine output with hydrochlorothiazide. Has oral thrush. No headache. Denies chills. Denies shortness of breath. 2D echocardiogram without mention of valvular vegetation. White blood cell count is elevated. Currently on prednisone. Repeat urine culture has no growth. Blood culture has no growth. Patient is a 73-year-old female, presented to the hospital for further evaluation of severe diarrhea and abdominal cramping. Back in March towards the last week, patient received Reclast infusion for her osteoporosis. About 2-3 days after that infusion, she developed swelling and redness in her red eye. She went to the emergency room on April 01, and she was given some steroids as well as referral to an neighborhood worker. Her symptoms gradually improved, and about the first week of April she started having some upper respiratory symptoms and some congestion. She went to her primary care physician at that time and she was given a prescription for Z-[place] which she completed 5 days treatment. About 10 days prior to admission she started developing severe diarrhea, watery , some with mucus, associated with diffuse abdominal pain and abdominal cramping. She was given Flagyl, and stool for C. difficile was tested which came back negative, but it was decided for her to complete a week course of Flagyl. Her symptoms improved a little bit, however 1-2 days prior to admission , her diarrhea came back with a vengeance. She also started having worsening abdominal pain. She felt somewhat chilly but there was no documented fever. The day of admission she had vomiting, and because of her persistent symptoms, and her progressive weakness and poor appetite, she presented to the hospital for further evaluation and treatment. On presentation she had an elevated WBC. Her lipase was elevated at 545. LFTs normal. Her urinalysis did show 6-8 WBC with occasional clumps. C. difficile toxin was negative. CT of the abdomen and pelvis did not show any significant abnormality, nor did it show any bowel wall thickening. Abdominal ultrasound is unremarkable. She initially had some low-grade temps, but her temperature has been increasing and is up to 101.8. Her white count also had gone up to 17.5. GI is evaluating the patient. She is currently on Levaquin and Flagyl. She currently denies any respiratory complaint. She is voiding okay at home. Patient has been with limited activity since she has been sick due to her significant weakness. She has had prior repair of a fracture on the left hip, and she has had previous problem with arthritis in both knees, and due to her immobility, she has been experiencing increased pain specifically worse on the left knee. Infectious disease consultation has been requested to evaluate the patient. Patient's son and daughter in law notes that she developed bilateral eye pain along with flu like symptoms after she got the dose of Reclast. Antibiotics: Diflucan. Lines: No evidence of infection Past Medical History: CAD (coronary artery disease) Fatty liver Hx of cardiac pacemaker Hyperlipidemia Hypertension Hypothyroidism Normal colonoscopy Osteoporosis Paroxysmal atrial fibrillation Sleep apnea Ulcerative colitis History of appendectomy History of mitral valve repair History of tonsillectomy and adenoidectomy History of total abdominal hysterectomy Status post-operative repair of closed fracture of left hip Allergies/Adverse Reactions: Allergies cephalexin [From Keflex] Allergy (Verified 04/28/18 21:02) Rash codeine Allergy (Verified 04/28/18 21:02) Abdominal Pain mannitol [From Reclast] Allergy (Verified 04/28/18 21:02) Nausea/Vomiting meperidine [From Demerol] Allergy (Verified 04/28/18 21:02) Abdominal Pain water for injection,sterile [From Reclast] Allergy (Verified 04/28/18 21:02) Nausea/Vomiting zoledronic acid [From Reclast] Allergy (Verified 04/28/18 21:02) Nausea/Vomiting Objective Vital Signs 05/07/18 16:00 05/07/18 20:00 05/08/18 00:00 Temperature 97.4 F L 97.5 F L 97.1 F L Pulse Rate 75 75 75 Respiratory Rate 18 16 16 Blood Pressure 127/69 128/71 123/74 Pulse Oximetry 98 96 96 05/08/18 08:00 05/08/18 10:00 05/08/18 12:40 Temperature 97.5 F L 97.5 F L Pulse Rate 75 75 Respiratory Rate 20 16 20 Blood Pressure 134/80 131/82 Pulse Oximetry 96 94 L Intake & Output 05/07/18 05/08/18 05/08/18 18:59 06:59 18:59 Intake Total 1810 / 1810 1900 / 1900 Output Total 450 / 450 1200 / 1200 Balance 1360 / 1360 700 / 700 Weight 63.7 kg Intake: IV 1210 / 1210 1000 / 1000 NS + KCl 40 mEq Inj 1,000 ML @ 1100 / 1100 60 mls/hr IV.CONT .[id number] [facility] Rx#:[id number] NS Inj 1,000 ML @ 60 mls/hr IV. 1000 / 1000 CONT .[id number] [facility] Rx#: [id number] Calcium Chloride Inj 1 GM In NS 110 / 110 Inj 100 ML @ 110 mls/hr IV.SIG ONCE ONE Rx#:[id number] Oral 600 / 600 900 / 900 Output: Urine 450 / 450 1200 / 1200 Other: Date of Last Bowel Movement 05/07/18 05/07/18 05/08/18 # Bowel Movements 1 1 Lab - Hematology Results 05/07/18 05/08/18 06:25 05:45 CBC w Diff Auto diff final Slide review pending WBC 27.7 H 31.4 H RBC 3.35 L 3.72 L Hgb 10.0 L 10.6 L Hct 28.5 L 32.5 L MCV 85.0 87.3 MCH 29.8 28.3 MCHC 35.0 32.5 RDW 15.5 16.0 Plt Count 378 446 MPV 9.3 9.0 Neut % (Auto) 93.4 H 92.5 H Lymph % (Auto) 2.6 L 3.2 L Blanco % (Auto) 3.7 3.9 Eos % (Auto) 0.1 0.2 Baso % (Auto) 0.2 0.2 Neut # (Auto) 25.9 H 29.0 H Lymph # (Auto) 0.7 L 1.0 Blanco # (Auto) 1.0 H 1.2 H Eos # (Auto) 0.0 0.1 Baso # (Auto) 0.1 0.1 WBC Differential . Manual diff final Seg Neuts % (Manual) 92 H Band Neuts % (Manual) 3 Lymphocytes % (Manual) 2 L Monocytes % (Manual) 3 Abs Neuts (Manual) 29.8 H Differential Comment . . Lab - Chemistry Results 05/07/18 05/07/18 05/08/18 06:25 06:25 05:45 Sodium 132 L 132 L Potassium 5.6 H D 5.9 H Chloride 104 104 Carbon Dioxide 22.3 22.3 Anion Gap 6 6 BUN 23 H 30 H Creatinine 0.50 0.59 Estimated GFR Greater than 89 Greater than 89 Random Glucose 113 H 109 H Calcium 6.7 L* 7.2 L* Prot Corrected Calcium 7.6 L 8.2 L Total Creatine Kinase 32 Total Protein 5.3 L 5.2 L Imaging: ITS Impressions Abdomen Ultrasound 04/29/18 00:00 CONCLUSION: 1. Unremarkable study. Abdomen/Pelvis CT 04/29/18 00:00 CONCLUSION: Gas bubble inside the bladder may be iatrogenic and of uncertain etiology, otherwise unremarkable. Chest X-Ray 04/29/18 00:00 CONCLUSION: 1. No acute cardiopulmonary disease. Knee X-Ray 05/01/18 00:00 CONCLUSION: Tricompartmental osteoarthritis. There is a small associated joint effusion. No acute fracture identified. Physical Exam: GENERAL: No acute distress. SKIN: Warm and dry. HEAD: Atraumatic. Normocephalic. EYES: Pupils equal and round. No scleral icterus. No injection or drainage. ENT: No nasal bleeding or discharge. Positive oral thrush. NECK: Trachea midline. No JVD. CARDIOVASCULAR: Regular rate and rhythm. 1/6 systolic murmur left sternal border. RESPIRATORY: No accessory muscle use. Clear to auscultation. Breath sounds equal. CHEST: Pacemaker site appears intact. No evidence of infection. GASTROINTESTINAL: Abdomen soft, non-tender, nondistended. MUSCULOSKELETAL: Extremities without clubbing, cyanosis. Knee joint swelling. 2+ edema of the lower extremities. Also edema at the hips. No obvious deformities. NEUROLOGICAL: Awake and alert. No obvious cranial nerve deficits. Normal speech. PSYCHIATRIC: Appropriate mood and affect; normal insight and judgment normal. Assessment and Plan - Plan Impression Febrile illness, etiology? possible sepsis, source? Possible autoimmune disease. Possible inflammatory disease set off by Reclast. Given the continued diarrhea this could possibly be colitis flare with diffuse inflammatory component. - Elevated lipase on admission, better, could explain some of abdominal pain , possibly diarrhea; no radiologic evidence of pancreatitis - diarrhea, multiple C diff testing have been negative, no bowel wall thickening on CT, better Fever has resolved. Abdominal pain probably associated with inflammatory condition/colitis. Diarrhea - probable colitis flare. Polyarthritis, etiology? Probably related to Infusion of Reclast. Oral thrush. Leukocytosis very likely due to steroids. She would improve once steroids are tapered off. She appears to be improving slowly. The white blood cell count remained elevated but that could be steroid effect and anticipate that it may take some time to come back down. Recommendation Diflucan for oral thrush - treat for 10 days. Nystatin also for oral thrush. Follow temps Follow CBC Monitor progress PT to help with exercises/ambulation. Patient is clinically stable from ID standpoint. I will sign off now. Please reconsult if further input is needed. Dr. Robbins will be covering for ID [place] beginning tomorrow.
--- NOTE | 2018-05-08 17:40 | P.PNONC ---
Subjective Interval history: Patient reports generalized weakness and fatigue, she reports she feels very swollen due to IV fluids. She denies fevers, chills, night sweats, difficulty breathing or chest pain. Patient's chart was reviewed including labs, microbiology, imaging studies and it web development consultant notes. The patient tells me she had diarrhea associated nausea and vomiting for several weeks before coming to the hospital. Her nausea vomiting is improved, diarrhea persists but to a much lesser extent. Hematology had been asked to see her for leukocytosis. Objective Vital Signs/Intake & Output: Vital Signs 05/07/18 20:00 05/08/18 00:00 05/08/18 08:00 Temperature 97.5 F L 97.1 F L 97.5 F L Pulse Rate 75 75 75 Respiratory Rate 16 16 20 Blood Pressure 128/71 123/74 134/80 Pulse Oximetry 96 96 96 05/08/18 10:00 05/08/18 12:40 Temperature 97.5 F L Pulse Rate 75 Respiratory Rate 16 20 Blood Pressure 131/82 Pulse Oximetry 94 L Intake & Output 05/07/18 05/08/18 05/08/18 18:59 06:59 18:59 Intake Total 1810 / 1810 1900 / 1900 Output Total 450 / 450 1200 / 1200 Balance 1360 / 1360 700 / 700 Weight 63.7 kg Intake: IV 1210 / 1210 1000 / 1000 NS + KCl 40 mEq Inj 1,000 ML @ 1100 / 1100 60 mls/hr IV.CONT .[id number] [facility] Rx#:[id number] NS Inj 1,000 ML @ 60 mls/hr IV. 1000 / 1000 CONT .[id number] [facility] Rx#: [id number] Calcium Chloride Inj 1 GM In NS 110 / 110 Inj 100 ML @ 110 mls/hr IV.SIG ONCE ONE Rx#:[id number] Oral 600 / 600 900 / 900 Output: Urine 450 / 450 1200 / 1200 Other: Date of Last Bowel Movement 05/07/18 05/07/18 05/08/18 # Bowel Movements 1 1 Result Diagrams: 05/08/18 05:45 05/08/18 05:45 Laboratory Results: Laboratory Results - last 24 hr 05/08/18 05/08/18 05:45 05:45 CBC w Diff Slide review pending WBC 31.4 H RBC 3.72 L Hgb 10.6 L Hct 32.5 L MCV 87.3 MCH 28.3 MCHC 32.5 RDW 16.0 Plt Count 446 MPV 9.0 Neut % (Auto) 92.5 H Lymph % (Auto) 3.2 L [place] % (Auto) 3.9 Eos % (Auto) 0.2 Baso % (Auto) 0.2 Neut # (Auto) 29.0 H Lymph # (Auto) 1.0 [place] # (Auto) 1.2 H Eos # (Auto) 0.1 Baso # (Auto) 0.1 WBC Differential Manual diff final Seg Neuts % (Manual) 92 H Band Neuts % (Manual) 3 Lymphocytes % (Manual) 2 L Monocytes % (Manual) 3 Abs Neuts (Manual) 29.8 H Differential Comment . Sodium 132 L Potassium 5.9 H Chloride 104 Carbon Dioxide 22.3 Anion Gap 6 BUN 30 H Creatinine 0.59 Estimated GFR Greater than 89 Random Glucose 109 H Calcium 7.2 L* Prot Corrected Calcium 8.2 L Total Protein 5.2 L Medications: Active Medications Generic Name Dose Route Start Last Admin Trade Name Freq PRN Reason Stop Dose Admin Hydrocodone Bitart/Acetaminophen 1 tab 05/07/18 07:17 05/08/18 05:49 [place] 7.5/325 PO 1 tab Q6H PRN Administration pain level 3-10 Alprazolam 0.25 mg 05/01/18 12:00 05/07/18 20:20 Xanax PO 0.25 mg Q12HR PRN Administration ANXIETY Apixaban 2.5 mg 04/29/18 09:00 05/08/18 08:21 Eliquis PO 2.5 mg BID BALA Administration Atorvastatin Calcium 40 mg 04/29/18 09:00 05/07/18 08:05 Lipitor PO 40 mg DAILY BALA Administration Calcium/Vitamin D 3 tab 04/30/18 08:29 05/08/18 08:21 Oscal With D 250/125 Mg PO 3 tab BID BALA Administration Diphenoxylate HCl/Atropine 1 tab 05/04/18 21:30 05/07/18 08:04 Lomotil PO 1 tab TID PRN Administration DIARRHEA Famotidine 20 mg 05/03/18 21:00 05/08/18 08:20 Pepcid PO 20 mg BID BALA Administration Fluconazole 100 mg 05/02/18 17:00 05/08/18 08:21 Diflucan PO 100 mg DAILY BALA Administration Lactobacillus Acidophilus 1 tab 05/02/18 18:00 05/08/18 12:44 Lactinex PO 1 tab TID BALA Administration Levothyroxine Sodium 25 mcg 04/29/18 06:00 05/08/18 05:49 Synthroid PO 25 mcg DAILY@0600 BALA Administration Magnesium Oxide 400 mg 05/07/18 11:00 05/08/18 12:44 Mag-Ox PO 400 mg DAILY@1100 BALA Administration Miscellaneous 1 each 04/29/18 06:00 04/30/18 08:30 Pill Splitter OTHER 1 each UNSCH PRN Administration PILL SPLITTER Morphine Sulfate 2 mg 04/29/18 01:07 05/07/18 06:34 Morphine Inj IV.PUSH 2 mg Q3H PRN Administration BREAKTHROUGH PAIN Nystatin 5 ml 05/02/18 18:00 05/08/18 12:44 Mycostatin Liq SWISH-SWAL 5 ml QID BALA Administration Ondansetron HCl 4 mg 04/30/18 09:01 05/01/18 13:29 Zofran Inj IV.PUSH 4 mg Q6H PRN Administration NAUSEA OR VOMITING Prednisone 40 mg 05/03/18 09:00 05/08/18 08:19 Deltasone PO 40 mg DAILY BALA Administration Sodium Bicarbonate 650 mg 05/03/18 21:00 05/08/18 08:19 Sodium Bicarbonate PO 650 mg BID BALA Administration Sodium Chloride 1 gm 05/03/18 21:00 05/08/18 08:21 Sodium Chloride PO 1 gm BID BALA Administration Sotalol HCl 40 mg 04/29/18 09:00 05/08/18 08:20 Betapace PO 40 mg Q12HR BALA Administration Objective Remarks: GENERAL: Elderly lady, laying in bed, appears to be no acute distress. Has a pleasant disposition speaks to me in full sentences, she is awake, alert and oriented. SKIN: Warm and dry. HEAD: Normocephalic. EYES: No scleral icterus. No injection or drainage. Conjunctivae are pale. NECK: Supple, trachea midline. No JVD or lymphadenopathy. LYMPHATIC: No adenopathy. CARDIOVASCULAR: Regular rate and rhythm without murmurs. RESPIRATORY: Decreased bibasilar breath sounds, no Rales or rhonchi or crepitus. GASTROINTESTINAL: Protuberant abdomen, soft, non-tender, nondistended. EXTREMITIES: Edema noted of the upper and lower extremities in dependent areas. MUSCULOSKELETAL: Generally decreased muscle mass. NEUROLOGICAL: Alert and oriented 3, moving all 4 limbs spontaneously, generally decreased muscle mass and tone. PSYCHIATRIC: Appropriate mood and affect; insight and judgment normal. Assessment/Plan - Plan 73-year-old lady with multiple medical comorbid conditions admitted to the hospital chronic diarrhea, nausea and vomiting. Found to have hyponatremia, dehydration and progressive leukocytosis. Leukocytosis mostly driven by neutrophilia and a borderline monocytosis. This was present at the time of initial presentation however over the course of hospitalization for leukocytosis has progressed. White blood cell differential counts reviewed, basophils are not elevated, no immature cells are reported on manual differential such as blasts, myelocytes or metamyelocytes. The majority of the circulating WBCs are neutrophils and bands. It appears the leukocytosis is most likely secondary to an exaggerated leukemoid reaction due to inflammation and or compounded by usage of corticosteroids with resultant demargination. An underlying myeloproliferative neoplasm cannot be ruled out at this time. I would advise trending her white cell count at this time and to assess resolution as corticosteroids are tapered off. Should there be appearance of immature cells or blasts in the circulation a bone marrow biopsy will be indicated. An indication for bone marrow biopsy at this point does not exist. Continue ongoing care. I would advise Hematology Follow up in the out patient setting to ensure resolution of leukocytosis.
[2018-05-08] MEDS: ALPRAZolam 0.25 MG Tablet PO PRN (21:37)
[2018-05-08] MEDS: Diphenoxylate/Atropine 2.5/0.025 MG Tablet PO PRN (23:21)
[2018-05-09 06:03] LABS: Baso # (Auto) 0.4 th/mm3 (0.0-0.2); Baso % (Auto) 1.2 % (0.0-2.0); Eos # (Auto) 0.3 th/mm3 (0.0-0.4); Hematocrit 31.6 % (35.0-46.0); Hemoglobin 10.4 gm/dL (11.6-15.3); Lymph % (Auto) 3.2 % (9.0-44.0); Mean Corpuscular Hemoglobin 28.4 pg (27.0-34.0); Mean Corpuscular Volume 86.1 fL (80.0-100.0); Mean Platelet Volume 8.6 fL (7.0-11.0); Mono # (Auto) 0.6 th/mm3 (0.0-0.9); Mono % (Auto) 2.1 % (0.0-8.0); Neut # (Auto) 27.8 th/mm3 (1.8-7.7); Neut % (Auto) 92.5 % (16.0-70.0); Platelet Count 415 th/mm3 (150-450); Red Blood Count 3.67 mil/mm3 (4.00-5.30); Red Cell Distribution Width 15.6 % (11.6-17.2)
[2018-05-09 06:30] LABS: Lymphocytes 3 % (9-44); Metamyelocytes 2 % (0-1); Monocytes 2 % (0-8); Myelocytes 1 % (0-0); Platelet Estimate Normal (Normal); Platelet Morphology Normal (Normal); RBC Morphology Normal (Normal)
[2018-05-09 06:33] LABS: Anion Gap 6 meq/L (5-15); Blood Urea Nitrogen 27 mg/dL (7-18); Calcium 7.2 mg/dL (8.5-10.1); Carbon Dioxide 22.6 meq/L (21.0-32.0); Chloride 105 meq/L (98-107); Glomerular Filtration Rate Greater Than 89 mL/min (>89); Glucose,Random 125 mg/dL (74-106); Potassium 5.1 meq/L (3.5-5.1); Sodium 134 meq/L (136-145)
[2018-05-09 06:35] LABS: C-Reactive Protein 4.08 mg/dL (0.00-0.30)
--- NOTE | 2018-05-09 07:01 | P.PN ---
Subjective Interval history: Feels about the same today. Was able to get up in the chair yesterday with max assist. Garcia catheter was just removed this morning for another voiding trial. Patient had several episodes of loose stool overnight which quickly improved with 1 dose of Lomotil. Increased frequency of loose stools could have been associated with a dose of Kayexalate she was given yesterday. Physical Exam Vital signs: Vital Signs 05/08/18 08:00 05/08/18 10:00 05/08/18 12:40 Temperature 97.5 F L 97.5 F L Pulse Rate 75 75 Respiratory Rate 20 16 20 Blood Pressure 134/80 131/82 Pulse Oximetry 96 94 L 05/08/18 16:00 05/08/18 20:00 05/09/18 00:00 Temperature 97.5 F L 97.4 F L 97.0 F L Pulse Rate 75 75 76 Respiratory Rate 20 16 16 Blood Pressure 132/79 163/81 H 139/80 Pulse Oximetry 95 96 96 Intake & Output 05/08/18 05/08/18 05/09/18 06:59 18:59 06:59 Intake Total 1900 / 1900 960 / 960 Output Total 1200 / 1200 1150 / 1150 900 / 900 Balance 700 / 700 -190 / -190 -900 / -900 Weight 63.7 kg 63.7 kg Intake: IV 1000 / 1000 NS Inj 1,000 ML @ 60 mls/hr IV. 1000 / 1000 CONT .[id number] [facility] Rx#: [id number] Oral 900 / 900 960 / 960 Output: Urine 1200 / 1200 1150 / 1150 900 / 900 Other: Date of Last Bowel Movement 05/07/18 05/08/18 # Bowel Movements 1 8 Narrative: GENERAL: Awake, alert and oriented. Quite pleasant and cooperative. No acute distress. SKIN: Warm and dry. Small area of ecchymosis anterior left knee which she reports is chronic and appears stable. HEAD: Atraumatic. Normocephalic. EYES: Pupils equal and round. No scleral icterus. No injection or drainage. ENT: No nasal bleeding or discharge. NECK: Trachea midline. No JVD. CARDIOVASCULAR: Regular rate and rhythm. Soft 2 out of 6 systolic ejection murmur noted and stable. RESPIRATORY: No accessory muscle use. Clear to auscultation. Breath sounds equal bilaterally. GASTROINTESTINAL: Abdomen soft, non-tender, nondistended. Hepatic and splenic margins not palpable. Bowel sounds slightly hyperactive. MUSCULOSKELETAL: Extremities without clubbing, cyanosis. Moves all extremities but mild global weakness noted which seems to affect her lower extremities more. Trace to 1+ edema in lower extremities. Trace edema in upper extremities. No obvious deformities. NEUROLOGICAL: No obvious cranial nerve deficits. Motor grossly within normal limits with the exception of global weakness is noted. Normal speech. PSYCHIATRIC: Appropriate mood and affect; insight and judgment normal. - Urinary Catheter Management Indwelling Urethral Catheter Cath placed during this visit: yes Reason for continuing: Acute urinary retention Insertion date: 05/06/18 Insertion time: 03:00 Results - Labs CBC & Chem 7: 05/09/18 05:45 05/09/18 05:45 Laboratory Results - last 24 hr 05/08/18 05/08/18 05/09/18 05:45 05:45 05:45 CBC w Diff Slide review pending Slide review pending WBC 31.4 H 30.0 H RBC 3.72 L 3.67 L Hgb 10.6 L 10.4 L Hct 32.5 L 31.6 L MCV 87.3 86.1 MCH 28.3 28.4 MCHC 32.5 33.0 RDW 16.0 15.6 Plt Count 446 415 MPV 9.0 8.6 Neut % (Auto) 92.5 H 92.5 H Lymph % (Auto) 3.2 L 3.2 L [place] % (Auto) 3.9 2.1 Eos % (Auto) 0.2 1.0 Baso % (Auto) 0.2 1.2 Neut # (Auto) 29.0 H 27.8 H Lymph # (Auto) 1.0 1.0 [place] # (Auto) 1.2 H 0.6 Eos # (Auto) 0.1 0.3 Baso # (Auto) 0.1 0.4 H WBC Differential Manual diff final Manual diff final Seg Neuts % (Manual) 92 H 85 H Band Neuts % (Manual) 3 7 H Lymphocytes % (Manual) 2 L 3 L Monocytes % (Manual) 3 2 Metamyelocytes % (Man) 2 H Myelocytes % (Man) 1 H Abs Neuts (Manual) 29.8 H 28.5 H Differential Comment . . Platelet Estimate Normal Platelet Morphology Normal RBC Morphology Normal Sodium 132 L Potassium 5.9 H Chloride 104 Carbon Dioxide 22.3 Anion Gap 6 BUN 30 H Creatinine 0.59 Estimated GFR Greater than 89 Random Glucose 109 H Calcium 7.2 L* Prot Corrected Calcium 8.2 L C-Reactive Protein Total Protein 5.2 L 05/09/18 05:45 CBC w Diff WBC RBC Hgb Hct MCV MCH MCHC RDW Plt Count MPV Neut % (Auto) Lymph % (Auto) [place] % (Auto) Eos % (Auto) Baso % (Auto) Neut # (Auto) Lymph # (Auto) [place] # (Auto) Eos # (Auto) Baso # (Auto) WBC Differential Seg Neuts % (Manual) Band Neuts % (Manual) Lymphocytes % (Manual) Monocytes % (Manual) Metamyelocytes % (Man) Myelocytes % (Man) Abs Neuts (Manual) Differential Comment Platelet Estimate Platelet Morphology RBC Morphology Sodium 134 L Potassium 5.1 D Chloride 105 Carbon Dioxide 22.6 Anion Gap 6 BUN 27 H Creatinine 0.59 Estimated GFR Greater than 89 Random Glucose 125 H Calcium 7.2 L* Prot Corrected Calcium 8.3 L C-Reactive Protein 4.08 H Total Protein 5.0 L Assessment and Plan - Assessment (1) Inflammatory polyarthropathy of multiple sites Code(s): M06.4 - Inflammatory polyarthropathy Status: Acute Plan: Possibly associated with underlying connective tissue disorder that was exacerbated by Reclast administration based on historical presentation and onset of symptomatology. Seems to be slowly improving with steroid administration. Her mother had rheumatoid arthritis. CCP pending. Significant leukocytosis thought to be associated with underlying inflammatory response and steroid use. Appreciate hematology input. CRP improved today. (2) Acute hyponatremia Code(s): E87.1 - Hypo-osmolality and hyponatremia Status: Acute Plan: Improving slowly. Appreciate nephrology input. Continue current therapy and close monitoring of fluid intake. (3) Acute diarrhea Code(s): R19.7 - Diarrhea, unspecified Status: Acute Plan: Overall much improved. Patient reports generally 3-4 loose bowel movements per day but had increased loose stools overnight likely associated with the Kayexalate. No hematochezia. Abdominal pain much improved. Gastroenterology has seen the patient and suggested repeat scope but she is holding off at this point. She may repeat once she is stronger. (4) Urinary retention Code(s): R33.9 - Retention of urine, unspecified Status: Acute Plan: Failed Garcia removal trial 05/05 requiring replacement on 05/06. Garcia was again removed this morning for another voiding trial. Discussed with her nurse this morning. (5) Hypocalcemia Code(s): E83.51 - Hypocalcemia Status: Acute Plan: Replace and recheck. Appreciate nephrology input. Encourage p.o. intake. Calcium improved yesterday after IV infusion. (6) Hyperlipidemia Code(s): E78.5 - Hyperlipidemia, unspecified Status: Chronic Plan: We will hold statin to see if it helps with her myalgias. Her CK is normal. (7) Paroxysmal atrial fibrillation Code(s): I48.0 - Paroxysmal atrial fibrillation Status: Chronic Plan: Continue Eliquis. Rate controlled. Previously DC telemetry. (8) Hypothyroidism Code(s): E03.9 - Hypothyroidism, unspecified Status: Chronic Plan: TSH at goal. Continue current therapy.
[2018-05-09] MEDS: Nystatin Liq 500,000 UNIT/5 ML UDC SWISH-SWAL SCH ×4 (10:01→21:17)
[2018-05-09] MEDS: Lactobacillus Acidophilus/L. Spores Tablet PO SCH ×3 (10:01→17:12)
[2018-05-09] MEDS: predniSONE 20 MG Tablet PO SCH (10:02)
[2018-05-09] MEDS: Fluconazole 100 MG Tablet PO SCH (10:02)
[2018-05-09] MEDS: Famotidine 20 MG Tablet PO SCH ×2 (10:02→21:17)
[2018-05-09] MEDS: Calcium/Vitamin D 250/125 MG Tablet PO SCH ×2 (10:03→21:15)
[2018-05-09] MEDS: Diphenoxylate/Atropine 2.5/0.025 MG Tablet PO PRN (10:03)
[2018-05-09] MEDS: Sodium Chloride 1 GM Tablet PO SCH (10:03)
[2018-05-09] MEDS: Magnesium Oxide 400 MG Tablet PO SCH (10:04)
[2018-05-09] MEDS: ALPRAZolam 0.25 MG Tablet PO PRN ×2 (11:05→21:16)
--- NOTE | 2018-05-09 14:48 | P.PNNP ---
Subjective Interval history: Patient seen in AM, has nausea and vomited once, no abd. pain. Physical Exam Vital signs: Vital Signs 05/08/18 16:00 05/08/18 20:00 05/09/18 00:00 Temperature 97.5 F L 97.4 F L 97.0 F L Pulse Rate 75 75 76 Respiratory Rate 20 16 16 Blood Pressure 132/79 163/81 H 139/80 Pulse Oximetry 95 96 96 05/09/18 07:30 05/09/18 11:11 Temperature 97.4 F L 97.6 F Pulse Rate 76 76 Respiratory Rate 20 20 Blood Pressure 130/70 154/73 H Pulse Oximetry 95 95 Intake & Output 05/08/18 05/09/18 05/09/18 18:59 06:59 18:59 Intake Total 960 / 960 Output Total 1150 / 1150 900 / 900 Balance -190 / -190 -900 / -900 Weight 63.7 kg Intake: Oral 960 / 960 Output: Urine 1150 / 1150 900 / 900 Other: Date of Last Bowel Movement 05/08/18 # Bowel Movements 8 Narrative: GENERAL: Awake, alert and oriented. Quite pleasant and cooperative. No acute distress. SKIN: Warm and dry. Small area of ecchymosis anterior left knee which she reports is chronic and appears stable. HEAD: Atraumatic. Normocephalic. EYES: Pupils equal and round. No scleral icterus. No injection or drainage. ENT: No nasal bleeding or discharge. NECK: Trachea midline. No JVD. CARDIOVASCULAR: Regular rate and rhythm. Soft 2 out of 6 systolic ejection murmur noted and stable. RESPIRATORY: No accessory muscle use. Clear to auscultation. Breath sounds equal bilaterally. GASTROINTESTINAL: Abdomen soft, non-tender, nondistended. Hepatic and splenic margins not palpable. Bowel sounds slightly hyperactive. MUSCULOSKELETAL: Extremities without clubbing, cyanosis. Moves all extremities but mild global weakness noted which seems to affect her lower extremities more. Trace to 1+ edema in lower extremities. Trace edema in upper extremities. No obvious deformities. NEUROLOGICAL: No obvious cranial nerve deficits. Motor grossly within normal limits with the exception of global weakness is noted. Normal speech. PSYCHIATRIC: Appropriate mood and affect; insight and judgment normal. - Urinary Catheter Management Indwelling Urethral Catheter Cath placed during this visit: yes Reason for continuing: Acute urinary retention Insertion date: 05/06/18 Insertion time: 03:00 Assessment and Plan - Plan ASSESSMENT AND PLAN: 1. Hyponatremia. 2. Electrolyte imbalance with low potassium and low calcium and low magnesium. 3. Metabolic acidosis. 4. Urinary tract infection. 5. Leukocytosis. 6. Anemia. 7. Hypothyroidism. Patient with recurrent Hyponatremia, clinically euvolemic. Urine osmolality is elevated, Has an element of SIADH along with low oral intake. Encourage oral intake. Patient is at high risk for recurrent Hyponatremia due to high urine osmolality. Continue fluid restriction and encourage oral intake. K is normal now. Give one dose of Kayexalate. Sodium increase to 134, decrease NaCl to daily 1 gm. D/W the daughter at bed side.
[2018-05-10] MEDS: Morphine Sulfate Inj 2 MG/ML Vial IV.PUSH PRN (00:05)
[2018-05-10 06:17] LABS: Hematocrit 30.2 % (35.0-46.0); Hemoglobin 10.5 gm/dL (11.6-15.3); Mean Corpuscular HGB Conc 34.6 % (32.0-36.0); Mean Corpuscular Hemoglobin 29.3 pg (27.0-34.0); Mean Corpuscular Volume 84.4 fL (80.0-100.0); Platelet Count 252 th/mm3 (150-450); Red Blood Count 3.58 mil/mm3 (4.00-5.30); Red Cell Distribution Width 15.4 % (11.6-17.2); White Blood Count 25.7 th/mm3 (4.0-11.0)
[2018-05-10 06:22] LABS: Chloride 102 meq/L (98-107); Potassium 4.6 meq/L (3.5-5.1); Sodium 135 meq/L (136-145)
[2018-05-10 06:28] LABS: Albumin 1.4 g/dL (3.4-5.0); Anion Gap 6 meq/L (5-15); Calcium 7.5 mg/dL (8.5-10.1); Carbon Dioxide 27.2 meq/L (21.0-32.0)
[2018-05-10 06:29] LABS: Blood Urea Nitrogen 23 mg/dL (7-18); Glucose,Random 79 mg/dL (74-106)
[2018-05-10 06:31] LABS: Alanine Aminotransferase 33 U/L (10-53); Aspartate Aminotransferase 40 U/L (15-37)
[2018-05-10 06:32] LABS: Glomerular Filtration Rate Greater Than 89 mL/min (>89); Total Protein 5.2 g/dL (6.4-8.2)
[2018-05-10 06:33] LABS: Alkaline Phosphatase 154 U/L (45-117)
[2018-05-10 07:10] LABS: Eosinophils 2 % (0-4); Lymphocytes 3 % (9-44); Metamyelocytes 2 % (0-1); Monocytes 2 % (0-8); Myelocytes 2 % (0-0); Platelet Estimate Normal (Normal); Platelet Morphology Normal (Normal)
--- NOTE | 2018-05-10 07:53 | P.PN ---
Subjective Interval history: Patient becoming frustrated with duration of hospital course. She remains overall weak. I have gone over her lab work with her today and advised to increase protein intake. I have also encouraged her to actively participate with physical therapy in order to try to get out of the bed. Physical Exam Vital signs: Vital Signs 05/09/18 11:11 05/09/18 15:28 05/09/18 20:00 Temperature 97.6 F 97.4 F L 97.2 F L Pulse Rate 76 78 75 Respiratory Rate 20 20 16 Blood Pressure 154/73 H 148/72 H 167/76 H Pulse Oximetry 95 95 96 05/10/18 00:00 Temperature 96.4 F L Pulse Rate 75 Respiratory Rate 16 Blood Pressure 138/83 Pulse Oximetry 97 Intake & Output 05/09/18 05/10/18 05/10/18 18:59 06:59 18:59 Intake Total 840 / 840 480 / 480 Output Total 400 / 400 2049 Balance 440 / 440 -1570 / -1570 Weight 63.7 kg Intake: Oral 840 / 840 480 / 480 Output: Urine 400 / 400 2049 Other: # Voids 2 # Bowel Movements 2 Narrative: GENERAL: Awake, alert and oriented. Quite pleasant and cooperative. No acute distress, but understandably becoming somewhat frustrated with chronic medical condition. SKIN: Warm and dry. ecchymosis anterior left knee which she reports is chronic and appears stable. HEAD: Atraumatic. Normocephalic. EYES: Pupils equal and round. No scleral icterus. No injection or drainage. ENT: No nasal bleeding or discharge. NECK: Trachea midline. No JVD. CARDIOVASCULAR: Regular rate and rhythm. Soft 2 out of 6 systolic ejection murmur noted and stable. RESPIRATORY: No accessory muscle use. Clear to auscultation. Breath sounds equal bilaterally. GASTROINTESTINAL: Abdomen soft, non-tender, nondistended. Hepatic and splenic margins not palpable. Bowel sounds normal. MUSCULOSKELETAL: Extremities without clubbing, cyanosis. Moves all extremities but mild global weakness noted which seems to affect her lower extremities more. 1-2+ edema in lower extremities. 1+ edema in upper extremities. No obvious deformities. DTRs 1+ at bilateral knees and ankles. DTRs 1+ bilateral biceps. NEUROLOGICAL: No obvious cranial nerve deficits. Motor grossly within normal limits with the exception of global weakness is noted. Normal speech. PSYCHIATRIC: Appropriate mood and affect; insight and judgment normal. - Urinary Catheter Management Indwelling Urethral Catheter Cath placed during this visit: yes Reason for continuing: Acute urinary retention Insertion date: 05/09/18 Insertion time: 15:00 Results - Labs CBC & Chem 7: 05/10/18 05:40 05/10/18 05:40 Laboratory Results - last 24 hr 05/10/18 05/10/18 05:40 05:40 CBC w Diff Slide review pending WBC 25.7 H RBC 3.58 L Hgb 10.5 L Hct 30.2 L MCV 84.4 MCH 29.3 MCHC 34.6 RDW 15.4 Plt Count 252 D MPV 9.0 WBC Differential Manual diff final Seg Neuts % (Manual) 86 H Band Neuts % (Manual) 3 Lymphocytes % (Manual) 3 L Monocytes % (Manual) 2 Eosinophils % (Manual) 2 Metamyelocytes % (Man) 2 H Myelocytes % (Man) 2 H Abs Neuts (Manual) 23.9 H Differential Comment . Platelet Estimate Normal Platelet Morphology Normal Sodium 135 L Potassium 4.6 Chloride 102 Carbon Dioxide 27.2 Anion Gap 6 BUN 23 H Creatinine 0.46 L Estimated GFR Greater than 89 Random Glucose 79 Calcium 7.5 L Total Bilirubin 0.5 AST 40 H ALT 33 Alkaline Phosphatase 154 H Total Protein 5.2 L Albumin 1.4 L Assessment and Plan - Assessment (1) Inflammatory polyarthropathy of multiple sites Code(s): M06.4 - Inflammatory polyarthropathy Status: Acute Plan: Possibly associated with underlying connective tissue disorder that was exacerbated by Reclast administration based on historical presentation and onset of symptomatology. Seems to be slowly improving with steroid administration. Her mother had rheumatoid arthritis. CCP pending. Significant leukocytosis thought to be associated with underlying inflammatory response and steroid use. Appreciate hematology input. CRP improved yesterday. I will add SCDs to lower extremities in hopes of moving some of the fluid back to the central circulation. I have encouraged protein intake. (2) Acute hyponatremia Code(s): E87.1 - Hypo-osmolality and hyponatremia Status: Acute Plan: Improved. Appreciate nephrology input. Continue current therapy and close monitoring of fluid intake. (3) Acute diarrhea Code(s): R19.7 - Diarrhea, unspecified Status: Acute Plan: Overall much improved. Patient reports generally 3-4 loose bowel movements per day but had increased loose stools overnight on May 08 likely associated with the Kayexalate. No hematochezia. Abdominal pain much improved. Gastroenterology has seen the patient and suggested repeat scope but she is holding off at this point. She may repeat once she is stronger. (4) Urinary retention Code(s): R33.9 - Retention of urine, unspecified Status: Acute Plan: Failed Garcia removal trial 05/05 requiring replacement on 05/06. Garcia was again removed yesterday but she failed another voiding trial. This is likely due to her being prone for so long. Urology consulted. (5) Hypocalcemia Code(s): E83.51 - Hypocalcemia Status: Acute Plan: Overall improved. Appreciate nephrology input. Encourage p.o. intake. Albumin is quite low. (6) Hyperlipidemia Code(s): E78.5 - Hyperlipidemia, unspecified Status: Chronic Plan: We will hold statin to see if it helps with her myalgias. Her CK is normal. (7) Paroxysmal atrial fibrillation Code(s): I48.0 - Paroxysmal atrial fibrillation Status: Chronic Plan: Continue Eliquis. Rate controlled. Previously DC telemetry. (8) Hypothyroidism Code(s): E03.9 - Hypothyroidism, unspecified Status: Chronic Plan: TSH at goal. Continue current therapy.
[2018-05-10] MEDS: Famotidine 20 MG Tablet PO SCH ×2 (09:20→21:11)
[2018-05-10] MEDS: Calcium/Vitamin D 250/125 MG Tablet PO SCH ×2 (09:21→21:11)
[2018-05-10] MEDS: Lactobacillus Acidophilus/L. Spores Tablet PO SCH ×3 (09:21→18:05)
[2018-05-10] MEDS: Nystatin Liq 500,000 UNIT/5 ML UDC SWISH-SWAL SCH ×4 (09:21→21:12)
[2018-05-10] MEDS: predniSONE 20 MG Tablet PO SCH (09:23)
[2018-05-10] MEDS: Magnesium Oxide 400 MG Tablet PO SCH (11:04)
--- NOTE | 2018-05-10 13:53 | MB ---
cc: Omari Soria MD DATE: 05/10/2018 REASON FOR CONSULTATION: Urinary retention. HISTORY OF PRESENT ILLNESS: The patient is a 73-year-old female with no prior genitourinary history, who was admitted for vomiting, diarrhea, abdominal pain. During admission, she was found to have elevated lipase and to be hyponatremic. During her hospital stay, she continued to have diarrhea and she began to have difficulty urinating. She does have a strong urge to urinate, but could not start her stream. She felt very uncomfortable in her lower abdomen. She was straight catheterized several times for over 400 mL each time until finally after several times, a catheter was placed and left in. Currently, she feels much more comfortable. She denies fevers, chills, nausea or vomiting. Prior to her recent illness, she denies any problems urinating. She only got up 1-2 times a night, felt like she emptied her bladder. Denied urinary incontinence, hematuria or dysuria. Denies history of kidney stones and rarely has urinary tract infections. PAST MEDICAL HISTORY: Significant for hypertension, atrial fibrillation, ischemic heart disease, hypothyroidism, chronic hyponatremia, coronary artery disease, hyperlipidemia, hypertension, osteoporosis, sleep apnea, ulcerative colitis. PAST SURGICAL HISTORY: Tonsillectomy, appendectomy, mitral valve repair, left open reduction and internal fixation. SOCIAL HISTORY: She is and denies history of smoking, alcohol or illicit drugs. FAMILY HISTORY: Denies urolithiasis or genitourinary malignancies. ALLERGIES: ALLERGIC TO KEFLEX, CODEINE, MANNITOL AND MEPERIDINE. CURRENT MEDICATIONS: Include: 1. Xanax. 2. Eliquis. 3. Tylenol. 4. Lipitor. 5. Pepcid. 6. Diflucan. 7. Synthroid. 8. Zofran. 9. Morphine 10. Prednisone. 11. Sotalol. 12. Vancomycin. REVIEW OF SYSTEMS: See HPI. All other systems reviewed, otherwise negative. PHYSICAL EXAMINATION: VITAL SIGNS: Temperature 97.1, pulse 75, respiratory rate 18, BP 130/71, saturating 96% on room air. GENERAL: She is alert and oriented x3, in no apparent distress, pleasant and cooperative lady, appears stated age. HEENT: Head is normocephalic, atraumatic. Eyes: No scleral icterus. Extraocular muscles intact. NECK: Supple. Trachea is midline. No JVD. LUNGS: Clear to auscultation bilaterally. No wheezes, rales, rhonchi. HEART: Regular rate and rhythm. No murmurs, gallops, rubs. ABDOMEN: Soft, nontender, nondistended, positive bowel sounds. GENITOURINARY: No CVA tenderness bilaterally. Garcia draining clear yellow urine. PELVIC: Not indicated at this time. EXTREMITIES: Nontender. No clubbing, cyanosis or edema. NEUROLOGIC: Cranial nerves II-XII intact. Strength 5/5 all 4 extremities. SKIN: No ulcers or rashes. Warm and dry to touch. LABORATORY DATA: White count 30,000, hemoglobin 10.4, hematocrit 31.6, platelet count 415, sodium 135, potassium 4.6, chloride 102, bicarbonate 27.2, BUN 23, creatinine 0.46, calcium 7.5. MICROBIOLOGY: Urine culture grew out Enterococcus on 04/21/2018, pansensitive. IMAGING: CT abdomen and pelvis without contrast images reviewed. Agree with the radiologist's report. The patient has normal kidneys, no evidence of hydronephrosis, stones. ASSESSMENT AND PLAN: The patient is a 73-year-old female with no prior genitourinary history, presents with nausea, vomiting, abdominal pain, found to be hyponatremic with urinary tract infection. Continue the Garcia catheter. She can be discharged home with the Garcia catheter in place and followup as an outpatient for a void trial. I suspect this is just a temporary issue and that her retention should resolve on her own once her other issues are resolved. Otherwise, if she continues to have retention problems in the future, she can undergo cystoscopy, urodynamics as an outpatient. Thank you for this consultation. Please call with any questions. Urology will be available as needed. MD STAS Judd/LINDA , 01:26 PM , 01:37 PM
--- NOTE | 2018-05-10 14:43 | P.PNONC ---
Subjective Interval history: Patient states that her diarrhea is much better now. The joint pains and swelling is improving although slowly. Patient states that it is difficult for her to walk due to the joint pains. Objective Vital Signs/Intake & Output: Vital Signs 05/09/18 15:28 05/09/18 20:00 05/10/18 00:00 Temperature 97.4 F L 97.2 F L 96.4 F L Pulse Rate 78 75 75 Respiratory Rate 20 16 16 Blood Pressure 148/72 H 167/76 H 138/83 Pulse Oximetry 95 96 97 05/10/18 08:00 05/10/18 12:00 Temperature 96.8 F L 97.1 F L Pulse Rate 75 75 Respiratory Rate 18 18 Blood Pressure 128/68 138/71 Pulse Oximetry 95 96 Intake & Output 05/09/18 05/10/18 05/10/18 18:59 06:59 18:59 Intake Total 840 / 840 480 / 480 Output Total 400 / 400 2049 Balance 440 / 440 -1570 / -1570 Weight 63.7 kg Intake: Oral 840 / 840 480 / 480 Output: Urine 400 / 400 2049 Other: # Voids 2 # Bowel Movements 2 Result Diagrams: 05/10/18 05:40 05/10/18 05:40 Laboratory Results: Laboratory Results - last 24 hr 05/10/18 05/10/18 05:40 05:40 CBC w Diff Slide review pending WBC 25.7 H RBC 3.58 L Hgb 10.5 L Hct 30.2 L MCV 84.4 MCH 29.3 MCHC 34.6 RDW 15.4 Plt Count 252 D MPV 9.0 WBC Differential Manual diff final Seg Neuts % (Manual) 86 H Band Neuts % (Manual) 3 Lymphocytes % (Manual) 3 L Monocytes % (Manual) 2 Eosinophils % (Manual) 2 Metamyelocytes % (Man) 2 H Myelocytes % (Man) 2 H Abs Neuts (Manual) 23.9 H Differential Comment . Platelet Estimate Normal Platelet Morphology Normal Sodium 135 L Potassium 4.6 Chloride 102 Carbon Dioxide 27.2 Anion Gap 6 BUN 23 H Creatinine 0.46 L Estimated GFR Greater than 89 Random Glucose 79 Calcium 7.5 L Total Bilirubin 0.5 AST 40 H ALT 33 Alkaline Phosphatase 154 H Total Protein 5.2 L Albumin 1.4 L Medications: Active Medications Generic Name Dose Route Start Last Admin Trade Name Freq PRN Reason Stop Dose Admin Hydrocodone Bitart/Acetaminophen 1 tab 05/07/18 07:17 05/10/18 06:20 [place] 7.5/325 PO 1 tab Q6H PRN Administration pain level 3-10 Alprazolam 0.25 mg 05/01/18 12:00 05/09/18 21:16 Xanax PO 0.25 mg Q12HR PRN Administration ANXIETY Apixaban 2.5 mg 04/29/18 09:00 05/10/18 09:21 Eliquis PO 2.5 mg BID BALA Administration Atorvastatin Calcium 40 mg 04/29/18 09:00 05/07/18 08:05 Lipitor PO 40 mg DAILY BALA Administration Calcium/Vitamin D 3 tab 04/30/18 08:29 05/10/18 09:21 Oscal With D 250/125 Mg PO 3 tab BID BALA Administration Diphenoxylate HCl/Atropine 1 tab 05/04/18 21:30 05/09/18 10:03 Lomotil PO 1 tab TID PRN Administration DIARRHEA Famotidine 20 mg 05/03/18 21:00 05/10/18 09:20 Pepcid PO 20 mg BID BALA Administration Lactobacillus Acidophilus 1 tab 05/02/18 18:00 05/10/18 09:21 Lactinex PO 1 tab TID BALA Administration Levothyroxine Sodium 25 mcg 04/29/18 06:00 05/10/18 06:20 Synthroid PO 25 mcg DAILY@0600 BALA Administration Magnesium Oxide 400 mg 05/07/18 11:00 05/10/18 11:04 Mag-Ox PO 400 mg DAILY@1100 BALA Administration Miscellaneous 1 each 04/29/18 06:00 04/30/18 08:30 Pill Splitter OTHER 1 each UNSCH PRN Administration PILL SPLITTER Morphine Sulfate 2 mg 04/29/18 01:07 05/10/18 00:05 Morphine Inj IV.PUSH 2 mg Q3H PRN Administration BREAKTHROUGH PAIN Nystatin 5 ml 05/02/18 18:00 05/10/18 09:21 Mycostatin Liq SWISH-SWAL 5 ml QID BALA Administration Ondansetron HCl 4 mg 04/30/18 09:01 05/09/18 21:17 Zofran Inj IV.PUSH 4 mg Q6H PRN Administration NAUSEA OR VOMITING Prednisone 20 mg 05/10/18 07:47 05/10/18 09:23 Deltasone PO 20 mg DAILY BALA Administration Sodium Bicarbonate 650 mg 05/03/18 21:00 05/10/18 09:20 Sodium Bicarbonate PO 650 mg BID BALA Administration Sotalol HCl 40 mg 04/29/18 09:00 05/10/18 09:20 Betapace PO 40 mg Q12HR BALA Administration Objective Remarks: GENERAL: Well-nourished, well-developed patient. SKIN: Warm and dry. HEAD: Normocephalic. EYES: No scleral icterus. No injection or drainage. NECK: Supple, trachea midline. No JVD or lymphadenopathy. LYMPHATIC: No adenopathy. CARDIOVASCULAR: Regular rate and rhythm without murmurs. RESPIRATORY: Breath sounds equal bilaterally. No accessory muscle use. GASTROINTESTINAL: Abdomen soft, non-tender, nondistended. EXTREMITIES: No cyanosis, or edema. swelling of multiple joints. NEUROLOGICAL: No obvious focal deficit. Awake, alert, and oriented x3. Assessment/Plan (1) Leukocytosis (leucocytosis) Code(s): D72.829 - Elevated white blood cell count, unspecified Status: Acute - Plan 73-year-old lady with multiple medical comorbid conditions admitted to the hospital chronic diarrhea, nausea and vomiting. Found to have hyponatremia, dehydration and progressive leukocytosis. Leukocytosis mostly driven by neutrophilia and a borderline monocytosis. This was present at the time of initial presentation however over the course of hospitalization for leukocytosis has progressed. White blood cell differential counts reviewed, basophils are not elevated, no immature cells are reported on manual differential such as blasts, myelocytes or metamyelocytes. The majority of the circulating WBCs are neutrophils and bands. It appears the leukocytosis is most likely secondary to an exaggerated leukemoid reaction due to inflammation and or compounded by usage of corticosteroids with resultant demargination. An underlying myeloproliferative neoplasm cannot be ruled out at this time. I would advise trending her white cell count at this time and to assess resolution as corticosteroids are tapered off. Should there be appearance of immature cells or blasts in the circulation a bone marrow biopsy will be indicated. An indication for bone marrow biopsy at this point does not exist. Continue ongoing care. I would advise Hematology Follow up in the out patient setting to ensure resolution of leukocytosis. 05/10/2018 Leukocytosis is improving. Patient has severe inflammation of the joints which is causing the leukocytosis. This is worsened by steroid. I expect her white count to improve once she comes off of the steroid. I do not think we are dealing with any leukemia. Bebeto 2 and BCR ABL both are still pending for myeloproliferative disorder. If patient is discharged to home then she should be given and follow-up appointment to our office to make sure that her white count comes down to the normal range once the inflammation resolves and she comes off of the steroid.
--- NOTE | 2018-05-10 21:10 | P.PNNP ---
Subjective Interval history: Patient seen in late afternoon, no SOB, mild nausea. Physical Exam Vital signs: Vital Signs 05/10/18 00:00 05/10/18 08:00 05/10/18 12:00 Temperature 96.4 F L 96.8 F L 97.1 F L Pulse Rate 75 75 75 Respiratory Rate 16 18 18 Blood Pressure 138/83 128/68 138/71 Pulse Oximetry 97 95 96 05/10/18 16:00 05/10/18 17:09 Temperature 97.6 F Pulse Rate 75 Respiratory Rate 18 Blood Pressure 185/84 H 159/84 H Pulse Oximetry 95 Intake & Output 05/10/18 05/10/18 05/11/18 06:59 18:59 06:59 Intake Total 480 / 480 600 / 600 Output Total 2049 650 / 650 Balance -1570 / -1570 -50 / -50 Weight 63.7 kg Intake: Oral 480 / 480 600 / 600 Output: Urine 2049 650 / 650 Other: # Bowel Movements 0 Narrative: GENERAL: Awake, alert and oriented. Quite pleasant and cooperative. No acute distress, but understandably becoming somewhat frustrated with chronic medical condition. SKIN: Warm and dry. ecchymosis anterior left knee which she reports is chronic and appears stable. HEAD: Atraumatic. Normocephalic. EYES: Pupils equal and round. No scleral icterus. No injection or drainage. ENT: No nasal bleeding or discharge. NECK: Trachea midline. No JVD. CARDIOVASCULAR: Regular rate and rhythm. Soft 2 out of 6 systolic ejection murmur noted and stable. RESPIRATORY: No accessory muscle use. Clear to auscultation. Breath sounds equal bilaterally. GASTROINTESTINAL: Abdomen soft, non-tender, nondistended. Hepatic and splenic margins not palpable. Bowel sounds normal. MUSCULOSKELETAL: Extremities without clubbing, cyanosis. Moves all extremities but mild global weakness noted which seems to affect her lower extremities more. 1-2+ edema in lower extremities. 1+ edema in upper extremities. No obvious deformities. DTRs 1+ at bilateral knees and ankles. DTRs 1+ bilateral biceps. NEUROLOGICAL: No obvious cranial nerve deficits. Motor grossly within normal limits with the exception of global weakness is noted. Normal speech. PSYCHIATRIC: Appropriate mood and affect; insight and judgment normal. - Urinary Catheter Management Indwelling Urethral Catheter Cath placed during this visit: yes Reason for continuing: Acute urinary retention Insertion date: 05/09/18 Insertion time: 15:00 Assessment and Plan - Plan ASSESSMENT AND PLAN: 1. Hyponatremia. 2. Electrolyte imbalance with low potassium and low calcium and low magnesium. 3. Metabolic acidosis. 4. Urinary tract infection. 5. Leukocytosis. 6. Anemia. 7. Hypothyroidism. Patient with recurrent Hyponatremia, clinically euvolemic. Urine osmolality is elevated, Has an element of SIADH along with low oral intake. Encourage oral intake. Patient is at high risk for recurrent Hyponatremia due to high urine osmolality. Continue fluid restriction and encourage oral intake. K is normal now. Sodium is now 135. Continue NaCl once a day. If Na remain above 130 for next 2 weeks, can D/C NaCl.
[2018-05-10] MEDS: ALPRAZolam 0.25 MG Tablet PO PRN (21:11)
[2018-05-10] MEDS: Sodium Chloride 1 GM Tablet PO SCH (21:17)
[2018-05-11 06:33] LABS: Baso # (Auto) 0.2 th/mm3 (0.0-0.2); Baso % (Auto) 0.9 % (0.0-2.0); Eos # (Auto) 0.5 th/mm3 (0.0-0.4); Eos % (Auto) 2.3 % (0.0-4.0); Hematocrit 30.5 % (35.0-46.0); Hemoglobin 10.1 gm/dL (11.6-15.3); Lymph % (Auto) 8.4 % (9.0-44.0); Mean Corpuscular Hemoglobin 28.5 pg (27.0-34.0); Mean Corpuscular Volume 86.3 fL (80.0-100.0); Mean Platelet Volume 8.6 fL (7.0-11.0); Mono # (Auto) 1.6 th/mm3 (0.0-0.9); Mono % (Auto) 6.8 % (0.0-8.0); Neut % (Auto) 81.6 % (16.0-70.0); Platelet Count 383 th/mm3 (150-450); Red Blood Count 3.53 mil/mm3 (4.00-5.30); Red Cell Distribution Width 15.5 % (11.6-17.2); White Blood Count 23.3 th/mm3 (4.0-11.0)
[2018-05-11 06:41] LABS: Chloride 99 meq/L (98-107); Potassium 4.3 meq/L (3.5-5.1); Sodium 132 meq/L (136-145)
[2018-05-11 06:54] LABS: Alanine Aminotransferase 39 U/L (10-53); Albumin 1.3 g/dL (3.4-5.0); Alkaline Phosphatase 167 U/L (45-117); Anion Gap 6 meq/L (5-15); Aspartate Aminotransferase 51 U/L (15-37); Blood Urea Nitrogen 20 mg/dL (7-18); Carbon Dioxide 27.4 meq/L (21.0-32.0); Glomerular Filtration Rate Greater Than 89 mL/min (>89); Glucose,Random 68 mg/dL (74-106); Total Protein 4.6 g/dL (6.4-8.2)
--- NOTE | 2018-05-11 07:22 | P.PN ---
Subjective Interval history: Overall about the same. Diarrhea has resolved. Still global weakness and edema. Not eating very much per family. Physical Exam Vital signs: Vital Signs 05/10/18 08:00 05/10/18 12:00 05/10/18 16:00 Temperature 96.8 F L 97.1 F L 97.6 F Pulse Rate 75 75 75 Respiratory Rate 18 18 18 Blood Pressure 128/68 138/71 185/84 H Pulse Oximetry 95 96 95 05/10/18 17:09 05/10/18 20:00 05/11/18 00:00 Temperature 98.1 F 96.0 F L Pulse Rate 77 76 Respiratory Rate 20 20 Blood Pressure 159/84 H 119/58 L 118/57 L Pulse Oximetry 93 L 93 L Intake & Output 05/10/18 05/11/18 05/11/18 18:59 06:59 18:59 Intake Total 600 / 600 750 / 750 Output Total 650 / 650 1000 / 1000 Balance -50 / -50 -250 / -250 Intake: Oral 600 / 600 750 / 750 Output: Urine 650 / 650 1000 / 1000 Other: # Bowel Movements 0 Narrative: GENERAL: Awake, alert and oriented. No acute distress. Family present during this morning's exam. SKIN: Warm and dry. ecchymosis anterior left knee which she reports is chronic and appears stable. HEAD: Atraumatic. Normocephalic. EYES: Pupils equal and round. No scleral icterus. No injection or drainage. ENT: No nasal bleeding. NECK: Trachea midline. No JVD. CARDIOVASCULAR: Regular rate and rhythm. Soft 2 out of 6 systolic ejection murmur noted and stable. RESPIRATORY: No accessory muscle use. Clear to auscultation. Breath sounds equal bilaterally. GASTROINTESTINAL: Abdomen soft, non-tender, nondistended. Hepatic and splenic margins not palpable. Bowel sounds normal. MUSCULOSKELETAL: Extremities without clubbing, cyanosis. Moves all extremities but global weakness noted which seems to affect her lower extremities more. 1-2 + edema in lower extremities. 1-2+ edema in upper extremities. No obvious deformities. DTRs 1+ at bilateral knees and ankles. DTRs 1+ bilateral biceps. NEUROLOGICAL: No obvious cranial nerve deficits. Motor grossly within normal limits with the exception of global weakness is noted. Normal speech. PSYCHIATRIC: Appropriate mood and affect; insight and judgment normal. - Urinary Catheter Management Indwelling Urethral Catheter Cath placed during this visit: yes Reason for continuing: Acute urinary retention Insertion date: 05/09/18 Insertion time: 15:00 Results - Labs CBC & Chem 7: 05/11/18 05:45 05/11/18 05:45 Laboratory Results - last 24 hr 05/06/18 05/11/18 05/11/18 09:30 05:45 05:45 CBC w Diff Slide review pending WBC 23.3 H RBC 3.53 L Hgb 10.1 L Hct 30.5 L MCV 86.3 MCH 28.5 MCHC 33.0 RDW 15.5 Plt Count 383 D MPV 8.6 Neut % (Auto) 81.6 H Lymph % (Auto) 8.4 L Arthur % (Auto) 6.8 Eos % (Auto) 2.3 Baso % (Auto) 0.9 Neut # (Auto) 19.0 H Lymph # (Auto) 2.0 Arthur # (Auto) 1.6 H Eos # (Auto) 0.5 H Baso # (Auto) 0.2 Differential Comment . Sodium 132 L Potassium 4.3 Chloride 99 Carbon Dioxide 27.4 Anion Gap 6 BUN 20 H Creatinine 0.43 L Estimated GFR Greater than 89 Random Glucose 68 L Calcium 7.0 L* Prot Corrected Calcium 8.4 L Total Bilirubin 0.8 AST 51 H ALT 39 Alkaline Phosphatase 167 H C-Reactive Protein 13.90 H Total Protein 4.6 L D Albumin 1.3 L Cycl Citrul Peptide IgG Less than 16 Assessment and Plan - Assessment (1) Inflammatory polyarthropathy of multiple sites Code(s): M06.4 - Inflammatory polyarthropathy Status: Acute Plan: Possibly associated with underlying connective tissue disorder that was exacerbated by Reclast administration based on historical presentation and onset of symptomatology. Seems to be slowly improving with steroid administration. Her mother had rheumatoid arthritis. CCP pending. Significant leukocytosis thought to be associated with underlying inflammatory response and steroid use. Appreciate hematology input. CRP has spiked again. I will add SCDs to lower extremities in hopes of moving some of the fluid back to the central circulation. I have encouraged protein intake. (2) Acute hyponatremia Code(s): E87.1 - Hypo-osmolality and hyponatremia Status: Acute Plan: Improved. Appreciate nephrology input. Continue current therapy and close monitoring of fluid intake. (3) Acute diarrhea Code(s): R19.7 - Diarrhea, unspecified Status: Acute Plan: Overall much improved. No more diarrhea. Last BM was yesterday AM per pt report. No hematochezia. Abdominal pain much improved. Gastroenterology has seen the patient and suggested repeat scope but she is holding off at this point. She may repeat once she is stronger. (4) Urinary retention Code(s): R33.9 - Retention of urine, unspecified Status: Acute Plan: Failed Garcia removal trial 05/05 requiring replacement on 05/06. Garcia was again removed yesterday but she failed another voiding trial. This is likely due to her being prone for so long. Urology consult appreciated. (5) Hypocalcemia Code(s): E83.51 - Hypocalcemia Status: Acute Plan: Overall improved. Appreciate nephrology input. Encourage p.o. intake. Albumin is quite low. Will check vit D level as well. (6) Hyperlipidemia Code(s): E78.5 - Hyperlipidemia, unspecified Status: Chronic Plan: We will hold statin to see if it helps with her myalgias. Her CK is normal. (7) Paroxysmal atrial fibrillation Code(s): I48.0 - Paroxysmal atrial fibrillation Status: Chronic Plan: Continue Eliquis. Rate controlled. Previously DC telemetry. (8) Hypothyroidism Code(s): E03.9 - Hypothyroidism, unspecified Status: Chronic Plan: TSH at goal. Continue current therapy. - Plan Code Status: full Discussed Condition With: pt, her son and daughter in law Discharge Planning: pt is still quite week. She has a at home but he has severe pulm fibrosis. She is opposed to rehab placement. Will continue encouraging PO and PT participation.
[2018-05-11] MEDS ORDERED: MethylPREDNISolone Sod Succinate Inj 125 MG/2 ML Vial IV.PUSH ONE (08:00)
[2018-05-11] MEDS: Nystatin Liq 500,000 UNIT/5 ML UDC SWISH-SWAL SCH ×4 (08:30→21:39)
[2018-05-11] MEDS: Famotidine 20 MG Tablet PO SCH ×2 (08:30→21:40)
[2018-05-11] MEDS: predniSONE 20 MG Tablet PO SCH (08:30)
[2018-05-11] MEDS: Sodium Chloride 1 GM Tablet PO SCH (08:30)
[2018-05-11] MEDS: Lactobacillus Acidophilus/L. Spores Tablet PO SCH ×3 (08:30→17:59)
[2018-05-11] MEDS: Calcium/Vitamin D 250/125 MG Tablet PO SCH ×2 (08:31→21:40)
[2018-05-11] MEDS: Magnesium Oxide 400 MG Tablet PO SCH (12:12)
--- NOTE | 2018-05-11 12:43 | P.DIET ---
Nutritional Evaluation Type of nutrition evaluation: initial Nutrition screening: MDC (Calorie Counting) Subjective Subjective Comments: Pt sitting in bedside chair eating a yogurt when visited. "I'm trying to eat better". Pt says she likes the Mighty Shakes. Pt informed that a Calorie Count is being started; RN Sadie also informed of Calorie Count. Pt says she fractured her hip in July 2017 and lost wt and then her wt "stabilized" at 135-lb. Objective - Diagnosis Hyponatremia, Intractable diarrhea - Objective [place] body weight: 54.5 kg Body Weight Used for Calculations: Actual (59.6 kg) Energy Needs - Lower Range (kCal/kg): 25 Energy Needs - Upper Range (kCal/kg): 30 Lower Limit kCal/kg (kCals): 1,490 Upper Limit kCal/kg (kCals): 1,788 Lower Limit Protein Factor (Grams per Kg): 1.1 Upper Limit Protein Factor (Grams per Kg): 1.4 Lower Protein Needs (Protein): 66 Upper Protein Needs (Protein): 83 Dietitian Reviewed in Medical Record: Current diet, Curent medications, Intake & Output, Labs, Medical history Diet Order: Cardiac Objective Comments: PMH: CAD, Fatty Liver, h/o cardiac pacemaker, hyperlipidemia, HTN, Osteoporosis , Paroximal AFib, Sleep Apnea, Ulcerative Colitis Labs Include: Na 132, Albumin 1.3 Meds Include: Xanax, Lipitor, Oscal w/D, Pepcid, Zofran, Lomotil, Lactinex, Synthroid, MagOx, Prednisone LBM 05/10, +UOP 1650ml Feeding - Current PO Supplement Current Supplement: Scot Mcrae Current Frequency of Supplement: Three times a day Current kCals Provided by Supplement: 300 Current Protein Provided by Supplement: 9 Assessment Assessment: Pt is at nutritional risk r/t poor po intake mostly 0% to 50% for meals. MDC for Calorie Count 05/11 through 05/14 w/Nutrition Recs to follow 05/15. Scot jett MD. Labs reviewed-Na noted; CRP 13.9 and Alb 1.3-low albumin is no longer an indicator of nutritional status and is a negative-acute phase reactant relative to the presence of inflammation in the body. Recommendations: 1.MDC for Calorie Count 05/11 through 05/14 w/Nutrition Recs to follow 05/15 2.Scot Mancia per MD Dietitian to Monitor: Lab values, Electrolytes, Supplement acceptance, Intake & Output, Weight change, PO Intake, Medical course
[2018-05-11] MEDS: ALPRAZolam 0.25 MG Tablet PO PRN (21:40)
[2018-05-12] MEDS: Morphine Sulfate Inj 2 MG/ML Vial IV.PUSH PRN ×2 (02:54→18:03)
[2018-05-12] MEDS ORDERED: MethylPREDNISolone Sod Succinate Inj 125 MG/2 ML Vial IV.PUSH ONE (05:14)
--- NOTE | 2018-05-12 05:14 | P.PN ---
Subjective Interval history: Feeling a little stronger today. Reports that she had some progress yesterday with physical therapy. Ate better yesterday consuming 100% of her breakfast. Seems a bit more upbeat today. Physical Exam Vital signs: Vital Signs 05/11/18 08:00 05/11/18 12:00 05/11/18 16:00 Temperature 98.8 F 96.5 F L 97.5 F L Pulse Rate 75 77 76 Respiratory Rate 17 17 17 Blood Pressure 122/74 123/66 126/64 Pulse Oximetry 94 L 93 L 94 L 05/11/18 20:00 05/12/18 00:00 Temperature 97.3 F L 97.4 F L Pulse Rate 77 78 Respiratory Rate 16 16 Blood Pressure 139/83 131/83 Pulse Oximetry 93 L 95 Intake & Output 05/11/18 05/11/18 05/12/18 06:59 18:59 06:59 Intake Total 750 / 750 960 / 960 Output Total 1000 / 1000 2500 / 2500 Balance -250 / -250 -1540 / -1540 Intake: Oral 750 / 750 960 / 960 Output: Urine 1000 / 1000 2500 / 2500 Other: Date of Last Bowel Movement 05/11/18 05/11/18 # Bowel Movements 0 Narrative: GENERAL: Awake, alert and oriented. No acute distress. SKIN: Warm and dry. ecchymosis anterior left knee which she reports is chronic and appears stable. HEAD: Atraumatic. Normocephalic. EYES: Pupils equal and round. No scleral icterus. No injection or drainage. ENT: No nasal bleeding. NECK: Trachea midline. No JVD. CARDIOVASCULAR: Regular rate and rhythm. Soft 2 out of 6 systolic ejection murmur noted and stable. RESPIRATORY: No accessory muscle use. Clear to auscultation. Breath sounds equal bilaterally. GASTROINTESTINAL: Abdomen soft, non-tender, nondistended. Hepatic and splenic margins not palpable. Bowel sounds normal. MUSCULOSKELETAL: Extremities without clubbing, cyanosis. Moves all extremities but global weakness noted which seems to affect her lower extremities more. Lower extremity strength and voluntary motion seem to be a bit improved this morning. 1-2+ edema in lower extremities. 1-2+ edema in upper extremities. No obvious deformities. NEUROLOGICAL: No obvious cranial nerve deficits. Motor grossly within normal limits with the exception of global weakness is noted. Normal speech. PSYCHIATRIC: Appropriate mood and affect; insight and judgment normal. - Urinary Catheter Management Indwelling Urethral Catheter Cath placed during this visit: yes Reason for continuing: Acute urinary retention Insertion date: 05/09/18 Insertion time: 15:00 Results - Labs CBC & Chem 7: 05/11/18 05:45 05/11/18 05:45 Laboratory Results - last 24 hr 05/11/18 05/11/18 05/11/18 05:45 05:45 05:45 CBC w Diff Slide review pending WBC 23.3 H RBC 3.53 L Hgb 10.1 L Hct 30.5 L MCV 86.3 MCH 28.5 MCHC 33.0 RDW 15.5 Plt Count 383 D MPV 8.6 Neut % (Auto) 81.6 H Lymph % (Auto) 8.4 L [place] % (Auto) 6.8 Eos % (Auto) 2.3 Baso % (Auto) 0.9 Neut # (Auto) 19.0 H Lymph # (Auto) 2.0 [place] # (Auto) 1.6 H Eos # (Auto) 0.5 H Baso # (Auto) 0.2 WBC Differential . Differential Comment . Sodium 132 L Potassium 4.3 Chloride 99 Carbon Dioxide 27.4 Anion Gap 6 BUN 20 H Creatinine 0.43 L Estimated GFR Greater than 89 Random Glucose 68 L Calcium 7.0 L* Prot Corrected Calcium 8.4 L Total Bilirubin 0.8 AST 51 H ALT 39 Alkaline Phosphatase 167 H C-Reactive Protein 13.90 H Total Protein 4.6 L D Albumin 1.3 L Vitamin D 25-Hydroxy 24.1 L Assessment and Plan - Assessment (1) Inflammatory polyarthropathy of multiple sites Code(s): M06.4 - Inflammatory polyarthropathy Status: Acute Plan: Possibly associated with underlying connective tissue disorder that was exacerbated by Reclast administration based on historical presentation and onset of symptomatology. Seems to be slowly improving with steroid administration. Her mother had rheumatoid arthritis. CCP negative. Significant leukocytosis thought to be associated with underlying inflammatory response and steroid use. Appreciate hematology input. CRP has spiked again. Continue SCDs to lower extremities as tolerated. I have encouraged protein intake. (2) Acute hyponatremia Code(s): E87.1 - Hypo-osmolality and hyponatremia Status: Acute Plan: Improved. Appreciate nephrology input. Continue current therapy and close monitoring of fluid intake. (3) Acute diarrhea Code(s): R19.7 - Diarrhea, unspecified Status: Acute Plan: Overall much improved. No more diarrhea. Last BM was 8/9 PM and was not loose per patient. No hematochezia. Abdominal pain much improved. Gastroenterology has seen the patient and suggested repeat scope but she is holding off at this point. She may repeat once she is stronger. (4) Urinary retention Code(s): R33.9 - Retention of urine, unspecified Status: Acute Plan: Failed Garcia removal trial 05/05 requiring replacement on 05/06. Garcia was again removed yesterday but she failed another voiding trial. This is likely due to her being prone for so long. Urology consult appreciated. (5) Hypocalcemia Code(s): E83.51 - Hypocalcemia Status: Acute Plan: Overall improved. Appreciate nephrology input. Encourage p.o. intake. Albumin is quite low. Vitamin D a bit low but likely not significant enough to cause such drop in calcium. Total active form of vitamin D pending. (6) Hyperlipidemia Code(s): E78.5 - Hyperlipidemia, unspecified Status: Chronic Plan: We will hold statin to see if it helps with her myalgias. Her CK is normal. (7) Paroxysmal atrial fibrillation Code(s): I48.0 - Paroxysmal atrial fibrillation Status: Chronic Plan: Continue Eliquis. Rate controlled. Previously DC telemetry. (8) Hypothyroidism Code(s): E03.9 - Hypothyroidism, unspecified Status: Chronic Plan: TSH at goal. Continue current therapy. - Plan Discharge Planning: pt is still quite week. She has a at home but he has severe pulm fibrosis. She is opposed to rehab placement. Will continue encouraging PO and PT participation. Seems to have improved a bit yesterday with the Solu-Medrol injection. I will give her another dose today but it did cause her to be somewhat "jittery" last night and not able to sleep as well.
[2018-05-12 06:44] LABS: Eos % (Auto) 0.1 % (0.0-4.0); Hematocrit 28.4 % (35.0-46.0); Hemoglobin 9.5 gm/dL (11.6-15.3); Lymph # (Auto) 0.7 th/mm3 (1.0-4.8); Lymph % (Auto) 4.4 % (9.0-44.0); Mean Corpuscular HGB Conc 33.3 % (32.0-36.0); Mean Corpuscular Hemoglobin 28.7 pg (27.0-34.0); Mono # (Auto) 0.4 th/mm3 (0.0-0.9); Mono % (Auto) 2.8 % (0.0-8.0); Neut # (Auto) 14.9 th/mm3 (1.8-7.7); Neut % (Auto) 92.7 % (16.0-70.0); Platelet Count 337 th/mm3 (150-450); Red Blood Count 3.31 mil/mm3 (4.00-5.30); Red Cell Distribution Width 15.3 % (11.6-17.2)
[2018-05-12 06:52] LABS: Chloride 99 meq/L (98-107); Sodium 134 meq/L (136-145)
[2018-05-12 07:03] LABS: Alanine Aminotransferase 48 U/L (10-53); Albumin 1.3 g/dL (3.4-5.0); Alkaline Phosphatase 214 U/L (45-117); Anion Gap 5 meq/L (5-15); Aspartate Aminotransferase 54 U/L (15-37); Blood Urea Nitrogen 23 mg/dL (7-18); Calcium 7.3 mg/dL (8.5-10.1); Carbon Dioxide 30.1 meq/L (21.0-32.0); Glomerular Filtration Rate Greater Than 89 mL/min (>89); Glucose,Random 183 mg/dL (74-106); Total Protein 5.1 g/dL (6.4-8.2)
[2018-05-12] MEDS: ALPRAZolam 0.25 MG Tablet PO PRN ×2 (08:07→21:53)
[2018-05-12] MEDS: Lactobacillus Acidophilus/L. Spores Tablet PO SCH ×3 (09:50→18:03)
[2018-05-12] MEDS: Sodium Chloride 1 GM Tablet PO SCH (09:51)
[2018-05-12] MEDS: Famotidine 20 MG Tablet PO SCH ×2 (09:51→21:54)
[2018-05-12] MEDS: predniSONE 20 MG Tablet PO SCH (09:52)
[2018-05-12] MEDS: Nystatin Liq 500,000 UNIT/5 ML UDC SWISH-SWAL SCH ×4 (09:52→21:53)
[2018-05-12] MEDS: Magnesium Oxide 400 MG Tablet PO SCH (11:18)
[2018-05-12] MEDS: Calcium/Vitamin D 250/125 MG Tablet PO SCH ×2 (11:18→21:53)
--- NOTE | 2018-05-12 11:39 | US ---
EXAM DATE: 05/12/2018 10:42 AM EDT AGE/SEX: 73 years / Female INDICATIONS: Elevated lab values. CLINICAL DATA: This is the patient's subsequent encounter. Patient reports that signs and symptoms h ave been present for 1 day and indicates a pain score of 0/10. MEDICAL/SURGICAL HISTORY: Hypertension. Hypothyroidism. Osteoporosis. Coronary artery diseas e. Fatty liver. Hyperlipidemia. Atrial fibrillation. Sleep apnea. Ulcerative colitis. Appendectomy . Tonsillectomy. Hysterectomy. Mitral valve repair. Left hip repair. COMPARISON: No prior exams available for comparison. MEASUREMENTS: Liver:__ 14.5 cm. Common Bile Duct:__ 5mm. Right Kidney:__ 10.9 x 5.0 x 5.9 cm. FINDINGS: Liver: Normal echotexture without focal lesion or ductal dilatation. Portal Vein: Hepatopedal flow seen in portal vein. Common Duct: No intraluminal mass or stone visualized. Gallbladder: No gallstones. Small amount of fluid around the gallbladder. Pancreas: The visualized portions are within normal limits Right Kidney: Normal echotexture and cortical thickness. No mass or hydronephrosis. Other: Left pleural effusion. CONCLUSION: 1. No gallstones. Small amount of fluid around the gallbladder. Left pleural effusion. No significan t abnormality in the liver. Normal portal venous flow direction. Electronically signed by: Michael Ayala MD 05/12/2018 11:38 AM EDT
[2018-05-13 07:58] LABS: Chloride 98 meq/L (98-107); Potassium 3.8 meq/L (3.5-5.1); Sodium 135 meq/L (136-145)
[2018-05-13 08:02] LABS: Baso % (Auto) 0.1 % (0.0-2.0); Eos % (Auto) 0.1 % (0.0-4.0); Hematocrit 25.9 % (35.0-46.0); Hemoglobin 9.1 gm/dL (11.6-15.3); Lymph # (Auto) 0.8 th/mm3 (1.0-4.8); Lymph % (Auto) 4.3 % (9.0-44.0); Mean Corpuscular Hemoglobin 29.5 pg (27.0-34.0); Mean Corpuscular Volume 84.5 fL (80.0-100.0); Mean Platelet Volume 9.2 fL (7.0-11.0); Mono # (Auto) 0.8 th/mm3 (0.0-0.9); Mono % (Auto) 4.3 % (0.0-8.0); Neut # (Auto) 16.1 th/mm3 (1.8-7.7); Neut % (Auto) 91.2 % (16.0-70.0); Platelet Count 352 th/mm3 (150-450); Red Blood Count 3.07 mil/mm3 (4.00-5.30); Red Cell Distribution Width 15.8 % (11.6-17.2); White Blood Count 17.7 th/mm3 (4.0-11.0)
[2018-05-13 08:03] LABS: Albumin 1.4 g/dL (3.4-5.0); Blood Urea Nitrogen 22 mg/dL (7-18); Calcium 7.5 mg/dL (8.5-10.1); Glucose,Random 156 mg/dL (74-106)
[2018-05-13 08:04] LABS: Anion Gap 7 meq/L (5-15); Carbon Dioxide 30.3 meq/L (21.0-32.0)
[2018-05-13 08:06] LABS: Alanine Aminotransferase 63 U/L (10-53); Aspartate Aminotransferase 59 U/L (15-37); Glomerular Filtration Rate Greater Than 89 mL/min (>89)
[2018-05-13 08:08] LABS: Total Protein 4.9 g/dL (6.4-8.2)
[2018-05-13 08:09] LABS: Alkaline Phosphatase 180 U/L (45-117)
[2018-05-13] MEDS: Lactobacillus Acidophilus/L. Spores Tablet PO SCH ×3 (08:39→18:32)
[2018-05-13] MEDS: Calcium/Vitamin D 250/125 MG Tablet PO SCH ×2 (08:40→21:28)
[2018-05-13] MEDS: Sodium Chloride 1 GM Tablet PO SCH (08:42)
[2018-05-13] MEDS: predniSONE 20 MG Tablet PO SCH (08:42)
[2018-05-13] MEDS: Famotidine 20 MG Tablet PO SCH ×2 (08:43→21:31)
[2018-05-13] MEDS: Nystatin Liq 500,000 UNIT/5 ML UDC SWISH-SWAL SCH ×4 (08:45→21:33)
--- NOTE | 2018-05-13 11:59 | P.PN ---
Subjective Interval history: Patient is feeling better today, did well with rehab yesterday is eating better and feeling stronger. Lab work is remaining relatively stable I did discuss possible rehab with her, and with her family. She had a hip fracture in the past and [facility] did [facility] will see if they can evaluate and see if she would be appropriate for their care. Physical Exam Vital signs: Vital Signs 05/12/18 12:00 05/12/18 16:00 05/12/18 20:00 Temperature 96.7 F L 96.2 F L 96.7 F L Pulse Rate 75 75 75 Respiratory Rate 18 18 20 Blood Pressure 140/69 134/68 155/79 H Pulse Oximetry 95 93 L 96 05/13/18 00:00 05/13/18 08:00 05/13/18 08:38 Temperature 96.7 F L Pulse Rate 75 76 Respiratory Rate 20 16 20 Blood Pressure 141/69 H 165/80 H Pulse Oximetry 95 94 L Intake & Output 05/12/18 05/13/18 05/13/18 18:59 06:59 18:59 Intake Total 900 / 900 120 / 120 Output Total 1450 / 1450 550 / 550 Balance -550 / -550 -430 / -430 Intake: Oral 900 / 900 120 / 120 Output: Urine 1450 / 1450 550 / 550 Other: Date of Last Bowel Movement 05/12/18 # Bowel Movements 0 1 Narrative: GENERAL: SKIN: Warm and dry. HEAD: Atraumatic. Normocephalic. EYES: Pupils equal and round. No scleral icterus. No injection or drainage. ENT: No nasal bleeding or discharge. Mucous membranes pink and moist. NECK: Trachea midline. No JVD. CARDIOVASCULAR: Regular rate and rhythm. RESPIRATORY: No accessory muscle use. Clear to auscultation. Breath sounds equal bilaterally. GASTROINTESTINAL: Abdomen soft, non-tender, nondistended. Hepatic and splenic margins not palpable. MUSCULOSKELETAL: Extremities without clubbing, cyanosis, or edema. No obvious deformities. NEUROLOGICAL: Awake and alert. No obvious cranial nerve deficits. Motor grossly within normal limits. Five out of 5 muscle strength in the arms and legs. Normal speech. PSYCHIATRIC: Appropriate mood and affect; insight and judgment normal. - Urinary Catheter Management Indwelling Urethral Catheter Cath placed during this visit: yes Reason for continuing: Acute urinary retention Insertion date: 05/09/18 Insertion time: 15:00 Results - Labs CBC & Chem 7: 05/13/18 06:50 05/13/18 06:50 Laboratory Results - last 24 hr 05/13/18 05/13/18 06:50 06:50 CBC w Diff Auto diff final WBC 17.7 H RBC 3.07 L Hgb 9.1 L Hct 25.9 L MCV 84.5 MCH 29.5 MCHC 35.0 RDW 15.8 Plt Count 352 MPV 9.2 Neut % (Auto) 91.2 H Lymph % (Auto) 4.3 L [place] % (Auto) 4.3 Eos % (Auto) 0.1 Baso % (Auto) 0.1 Neut # (Auto) 16.1 H Lymph # (Auto) 0.8 L [place] # (Auto) 0.8 Eos # (Auto) 0.0 Baso # (Auto) 0.0 WBC Differential . Differential Comment . Sodium 135 L Potassium 3.8 Chloride 98 Carbon Dioxide 30.3 Anion Gap 7 BUN 22 H Creatinine 0.48 L Estimated GFR Greater than 89 Random Glucose 156 H Calcium 7.5 L Total Bilirubin 0.4 AST 59 H ALT 63 H Alkaline Phosphatase 180 H Total Protein 4.9 L Albumin 1.4 L Assessment and Plan - Assessment (1) Inflammatory polyarthropathy of multiple sites Code(s): M06.4 - Inflammatory polyarthropathy Status: Acute Plan: Possibly associated with underlying connective tissue disorder that was exacerbated by Reclast administration based on historical presentation and onset of symptomatology. Seems to be slowly improving with steroid administration. Her mother had rheumatoid arthritis. CCP negative. Significant leukocytosis thought to be associated with underlying inflammatory response and steroid use. Appreciate hematology input. CRP has spiked again. Continue SCDs to lower extremities as tolerated. I have encouraged protein intake. Patient is improving (2) Acute hyponatremia Code(s): E87.1 - Hypo-osmolality and hyponatremia Status: Acute Plan: Improved. Appreciate nephrology input. Continue current therapy and close monitoring of fluid intake. Sodium has improved (3) Acute diarrhea Code(s): R19.7 - Diarrhea, unspecified Status: Acute Plan: Overall much improved. No more diarrhea. Last BM was 8/9 PM and was not loose per patient. No hematochezia. Abdominal pain much improved. Gastroenterology has seen the patient and suggested repeat scope but she is holding off at this point. She may repeat once she is stronger. (4) Urinary retention Code(s): R33.9 - Retention of urine, unspecified Status: Acute Plan: Failed Garcia removal trial 05/05 requiring replacement on 05/06. Garcia was again removed yesterday but she failed another voiding trial. This is likely due to her being prone for so long. Urology consult appreciated. Garcia at this point will be continued and may try again to remove (5) Hypocalcemia Code(s): E83.51 - Hypocalcemia Status: Acute Plan: Overall improved. Appreciate nephrology input. Encourage p.o. intake. Albumin is quite low. Vitamin D a bit low but likely not significant enough to cause such drop in calcium. Total active form of vitamin D pending. (6) Hyperlipidemia Code(s): E78.5 - Hyperlipidemia, unspecified Status: Chronic Plan: We will hold statin to see if it helps with her myalgias. Her CK is normal. (7) Paroxysmal atrial fibrillation Code(s): I48.0 - Paroxysmal atrial fibrillation Status: Chronic Plan: Continue Eliquis. Rate controlled. Previously DC telemetry. (8) Hypothyroidism Code(s): E03.9 - Hypothyroidism, unspecified Status: Chronic Plan: TSH at goal. Continue current therapy. - Plan i did discuss rehab and family and patient did agree to [facility] will ask if she would qualify
[2018-05-13] MEDS: ALPRAZolam 0.25 MG Tablet PO PRN ×2 (12:18→21:28)
[2018-05-13] MEDS: Magnesium Oxide 400 MG Tablet PO SCH (12:18)
[2018-05-14] MEDS: ALPRAZolam 0.25 MG Tablet PO PRN ×3 (07:04→23:52)
[2018-05-14] MEDS: Sodium Chloride 1 GM Tablet PO SCH (08:41)
[2018-05-14] MEDS: Lactobacillus Acidophilus/L. Spores Tablet PO SCH ×3 (08:41→19:16)
[2018-05-14] MEDS: Calcium/Vitamin D 250/125 MG Tablet PO SCH ×2 (08:43→20:10)
[2018-05-14] MEDS: Nystatin Liq 500,000 UNIT/5 ML UDC SWISH-SWAL SCH ×4 (08:44→20:11)
[2018-05-14] MEDS: Famotidine 20 MG Tablet PO SCH ×2 (08:45→20:11)
--- NOTE | 2018-05-14 12:09 | P.PN ---
Subjective Interval history: Patient did a little poorly today has had some gas and did not feel could do rehab,i encouraged her to try ,patient with extreme fatigue ,weakness and [facility] have discussed with CP,and will get labs in am and plan to discharge to rehab tomorrow Physical Exam Vital signs: Vital Signs 05/13/18 16:00 05/13/18 20:00 05/14/18 00:00 Temperature 96.4 F L 96.9 F L 96.8 F L Pulse Rate 78 75 76 Respiratory Rate 17 20 Blood Pressure 147/86 H 172/74 H Pulse Oximetry 98 93 L 05/14/18 04:00 05/14/18 08:00 Temperature 96.5 F L Pulse Rate 74 79 Respiratory Rate 18 20 Blood Pressure 152/75 H 149/76 H Pulse Oximetry 94 L 95 Intake & Output 05/13/18 05/14/18 05/14/18 18:59 06:59 18:59 Intake Total 960 / 960 480 / 480 Output Total 3800 / 3800 1003 / 1003 Balance -2840 / -2840 -523 / -523 Weight 59.6 kg Intake: Oral 960 / 960 480 / 480 Output: Urine 2400 / 2400 1000 / 1000 Stool 3 / 3 Urine Amount (Catheter) 1400 / 1400 Indwelling Urethral Catheter 1400 / 1400 Other: Date of Last Bowel Movement 05/12/18 # Bowel Movements 0 Narrative: GENERAL: SKIN: Warm and dry. HEAD: Atraumatic. Normocephalic. EYES: Pupils equal and round. No scleral icterus. No injection or drainage. ENT: No nasal bleeding or discharge. Mucous membranes pink and moist. NECK: Trachea midline. No JVD. CARDIOVASCULAR: Regular rate and rhythm. RESPIRATORY: No accessory muscle use. Clear to auscultation. Breath sounds equal bilaterally. GASTROINTESTINAL: Abdomen soft, non-tender, nondistended. Hepatic and splenic margins not palpable. abdomen benign on exam MUSCULOSKELETAL: Extremities without clubbing, cyanosis, or edema. No obvious deformities. NEUROLOGICAL: Awake and alert. No obvious cranial nerve deficits. Motor grossly within normal limits. Five out of 5 muscle strength in the arms and legs. Normal speech. PSYCHIATRIC: Appropriate mood and affect; insight and judgment normal. - Urinary Catheter Management Indwelling Urethral Catheter Cath placed during this visit: yes Reason for continuing: Acute urinary retention Insertion date: 05/09/18 Insertion time: 15:00 Results - Labs CBC & Chem 7: 05/13/18 06:50 05/13/18 06:50 Assessment and Plan - Assessment (1) Inflammatory polyarthropathy of multiple sites Code(s): M06.4 - Inflammatory polyarthropathy Status: Acute Plan: Possibly associated with underlying connective tissue disorder that was exacerbated by Reclast administration based on historical presentation and onset of symptomatology. Seems to be slowly improving with steroid administration. Her mother had rheumatoid arthritis. CCP negative. Significant leukocytosis thought to be associated with underlying inflammatory response and steroid use. Appreciate hematology input. CRP has spiked again. Continue SCDs to lower extremities as tolerated. I have encouraged protein intake. Patient is improving (2) Acute hyponatremia Code(s): E87.1 - Hypo-osmolality and hyponatremia Status: Acute Plan: Improved. Appreciate nephrology input. Continue current therapy and close monitoring of fluid intake. Sodium has improved recheck tomorrow (3) Acute diarrhea Code(s): R19.7 - Diarrhea, unspecified Status: Acute Plan: Overall much improved. No more diarrhea. Last BM was 8/9 PM and was not loose per patient. No hematochezia. Abdominal pain much improved. Gastroenterology has seen the patient and suggested repeat scope but she is holding off at this point. She may repeat once she is stronger. (4) Urinary retention Code(s): R33.9 - Retention of urine, unspecified Status: Acute Plan: Failed Garcia removal trial 05/05 requiring replacement on 05/06. Garcia was again removed yesterday but she failed another voiding trial. This is likely due to her being prone for so long. Urology consult appreciated. Garcia at this point will be continued and may try again to remove (5) Hypocalcemia Code(s): E83.51 - Hypocalcemia Status: Acute Plan: Overall improved. Appreciate nephrology input. Encourage p.o. intake. Albumin is quite low. Vitamin D a bit low but likely not significant enough to cause such drop in calcium. Total active form of vitamin D pending. (6) Hyperlipidemia Code(s): E78.5 - Hyperlipidemia, unspecified Status: Chronic Plan: We will hold statin to see if it helps with her myalgias. Her CK is normal. (7) Paroxysmal atrial fibrillation Code(s): I48.0 - Paroxysmal atrial fibrillation Status: Chronic Plan: Continue Eliquis. Rate controlled. Previously DC telemetry. (8) Hypothyroidism Code(s): E03.9 - Hypothyroidism, unspecified Status: Chronic Plan: TSH at goal. Continue current therapy. - Plan i did discuss rehab and family and patient did agree to [facility] will ask if she would qualify
[2018-05-14] MEDS: Magnesium Oxide 400 MG Tablet PO SCH (12:50)
[2018-05-14] MEDS: predniSONE 20 MG Tablet PO SCH (12:51)
[2018-05-15 05:55] LABS: Baso % (Auto) 0.3 % (0.0-2.0); Eos # (Auto) 0.1 th/mm3 (0.0-0.4); Eos % (Auto) 1.1 % (0.0-4.0); Hematocrit 30.3 % (35.0-46.0); Hemoglobin 9.7 gm/dL (11.6-15.3); Lymph # (Auto) 1.5 th/mm3 (1.0-4.8); Lymph % (Auto) 11.8 % (9.0-44.0); Mean Corpuscular Hemoglobin 27.5 pg (27.0-34.0); Mean Corpuscular Volume 85.7 fL (80.0-100.0); Mean Platelet Volume 8.2 fL (7.0-11.0); Mono % (Auto) 8.3 % (0.0-8.0); Neut # (Auto) 9.9 th/mm3 (1.8-7.7); Neut % (Auto) 78.5 % (16.0-70.0); Platelet Count 412 th/mm3 (150-450); Red Blood Count 3.54 mil/mm3 (4.00-5.30); Red Cell Distribution Width 15.5 % (11.6-17.2); White Blood Count 12.5 th/mm3 (4.0-11.0)
[2018-05-15 06:07] LABS: Chloride 101 meq/L (98-107); Potassium 3.5 meq/L (3.5-5.1); Sodium 139 meq/L (136-145)
[2018-05-15 06:11] LABS: Calcium 7.7 mg/dL (8.5-10.1)
[2018-05-15 06:12] LABS: Albumin 1.6 g/dL (3.4-5.0); Anion Gap 4 meq/L (5-15); Blood Urea Nitrogen 17 mg/dL (7-18); Carbon Dioxide 34.3 meq/L (21.0-32.0); Glucose,Random 83 mg/dL (74-106)
[2018-05-15 06:15] LABS: Alanine Aminotransferase 90 U/L (10-53); Aspartate Aminotransferase 64 U/L (15-37); Glomerular Filtration Rate Greater Than 89 mL/min (>89)
[2018-05-15 06:17] LABS: Total Protein 4.9 g/dL (6.4-8.2)
[2018-05-15 06:18] LABS: Alkaline Phosphatase 166 U/L (45-117)
[2018-05-15] MEDS: Sodium Chloride 1 GM Tablet PO SCH (08:32)
[2018-05-15] MEDS: Lactobacillus Acidophilus/L. Spores Tablet PO SCH ×2 (08:32→14:27)
[2018-05-15] MEDS: Nystatin Liq 500,000 UNIT/5 ML UDC SWISH-SWAL SCH ×2 (08:32→14:27)
[2018-05-15] MEDS: predniSONE 20 MG Tablet PO SCH (08:33)
[2018-05-15] MEDS: Famotidine 20 MG Tablet PO SCH (08:33)
--- NOTE | 2018-05-15 08:33 | P.DIET ---
Nutritional Evaluation Type of nutrition evaluation: follow-up Nutrition screening: MDC (Calorie Counting) Subjective Subjective Comments: Pt lying in bed w/breakfast tray on bedside table. "It's too early to eat". Pt goes on to say she is continuing to try to eat and is drinking the Mighty Shakes. Objective - Diagnosis Hyponatremia, Intractable diarrhea - Objective [place] body weight: 54.5 kg Body Weight Used for Calculations: Actual (59.6 kg) Energy Needs - Lower Range (kCal/kg): 25 Energy Needs - Upper Range (kCal/kg): 30 Lower Limit kCal/kg (kCals): 1,490 Upper Limit kCal/kg (kCals): 1,788 Lower Limit Protein Factor (Grams per Kg): 1.1 Upper Limit Protein Factor (Grams per Kg): 1.4 Lower Protein Needs (Protein): 66 Upper Protein Needs (Protein): 83 Dietitian Reviewed in Medical Record: Current diet, Curent medications, Intake & Output, Labs, Medical history Diet Order: Cardiac Oral Diet Intake Amount: Fair 50-75% Objective Comments: PMH: CAD, Fatty Liver, h/o cardiac pacemaker, hyperlipidemia, HTN, Osteoporosis , Paroximal AFib, Sleep Apnea, Ulcerative Colitis Labs Include: Albumin 1.6, Prealbumin 10, CRP 2.6 Meds Include: Xanax, Lipitor, Oscal w/D, Pepcid, Zofran, Lomotil, Lactinex, Synthroid, MagOx, Prednisone LBM 05/13, +UOP 3400ml Feeding - Current PO Supplement Current Supplement: Mighty Shake Current Frequency of Supplement: Three times a day Current kCals Provided by Supplement: 300 Current Protein Provided by Supplement: 9 - kCal Count Day 1 kCal Intake: 1,950 Day 1 Protein Intake: 90 Day 2 kCal Intake: 1,345 Day 2 Protein Intake: 65 Day 3 kCal Intake: 1,060 Day 3 Protein Intake: 41 Assessment Assessment: Pt continues at nutritional risk r/t poor po. MDC for Calorie Count w/Adequate PO intake. Pt w/100% for lower end of assessed needs. Continue Mighty Shakes per MD. Labs reviewed-low albumin and prealbumin are no longer considered indicators of nutritional status and are negative-acute phase reactants relative to the presence of inflammation in the body. Wt noted. Dietitian will follow. Recommendations: 1. MDC for Calorie Count w/Adequate PO intake 2. Continue Mighty Shakes TID per MD 3. Dietitian following Dietitian to Monitor: Lab values, Electrolytes, Supplement acceptance, Intake & Output, Weight change, PO Intake, Medical course
[2018-05-15] MEDS: Calcium/Vitamin D 250/125 MG Tablet PO SCH (08:34)
[2018-05-15 09:04] VITALS: RESP 18
[2018-05-15] MEDS: Magnesium Oxide 400 MG Tablet PO SCH (10:22)
--- NOTE | 2018-05-15 10:34 | P.DS ---
Date of admission: 04/29/18 04:07 Primary care physician: Tulio De La Paz MD Attending physician on discharge: Ilir Matossarinacatarina Anticipated date of discharge: 05/15/18 Brief History from admission: HPI: This is a 73-year-old white female who has had diarrhea going on for about 8-10 days now. I had seen her a little over a week ago for diarrhea and put her on Flagyl. A stool specimen for C. difficile toxin was negative as an outpatient. She stated that her diarrhea and discomfort had improved some but then in the last few days her symptoms have become worse and she has become weaker. She has had some occasional chills. She states she has had at times some dysuria. She also states she has had an occasional cough. She denies any rectal bleeding. She still getting some intermittent lower abdominal cramping pain. Her stools have generally been loose and watery and she has not been eating much. She has been having in the last couple days the 3-5 loose watery stools per day. In the ER she had a sodium level of 121 last night. She had a slightly elevated lipase level as well. She does mention that several years ago she had some form of colitis. She does have a brother who has Crohn's disease. Medical history: Hyperlipidemia Paroxysmal atrial fibrillation on a low-dose of Eliquis Mild bilateral carotid artery plaque on carotid ultrasound 02/15/2018 History of hypertension but was recently taken off of blood pressure medication. Obstructive sleep apnea Osteoporosis "Coronary artery disease but no prior history of heart attack Recent placement of pacemaker Mild pulmonary hypertension on prior 2D echocardiogram on 02/24/2016 with pulmonary artery pressure of 46 mmHg Fatty liver Prior mitral valve repair Questionable history of TIA in the past Hypothyroidism Surgical history: Tonsillectomy and adenoidectomy Appendectomy Mitral valve repair ORIF for intertrochanteric fracture of the left hip on 07/19/2017 Normal colonoscopy on 01/22/2004 and 08/19/2011 Prior treatment of nondisplaced fracture of the right ulna Allergies: Codeine (nausea vomiting), Demerol causes nausea and vomiting, Keflex caused a rash Medications: Eliquis 2.5 mg twice a day Levothyroxine 25 mcg daily Rosuvastatin 20 mg daily Sotalol 80 mg she is only been taking half a pill twice a day She was recently taken off of amlodipine and enalapril after her pacemaker placement because her blood pressure was low Family history: Her father of at age 67 in a motor vehicle accident Brother--Crohn's disease Mother at age 84 of leukemia Social history: Never smoked. . Occasional social drink. 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 DS: Diagnosis - Discharge Diagnosis (1) Inflammatory polyarthropathy of multiple sites Status: Acute (2) Acute hyponatremia Status: Acute (3) Acute diarrhea Status: Acute (4) Urinary retention Status: Acute (5) Hypocalcemia Status: Acute (6) Hyperlipidemia Status: Chronic (7) Paroxysmal atrial fibrillation Status: Chronic (8) Hypothyroidism Status: Chronic DS: Summary Hospital Course: Patient admitted 04/29/2018, with extensive medical problems on initial admission including inflammatory polyarthritis of multiple sites probably associated underlying connective tissue disorder exacerbated by the use of Reclast based on the historical presentation on symptom symptomatology. Prednisone was added and the patient actually did improve slowly with continued use. Patient had significant leukocytosis throughout this hospitalization hematology was consulted and they felt it was due to the overall inflammation and no other findings associated with that and the WBC count did drop to 12,000 prior to discharge from being in the 20,000 range. CRP had been elevated on discharge is down to 2. Poor but that slowly improved during her hospitalization she did initially have acute hyponatremia was started on bicarb as well as normal soft sodium chloride and nephrology was consulted and we can eventually DC the sodium chloride as an sodium is now in normal range. She did have acute diarrhea which did resolve she had Lomotil as needed patient did have a problem with urinary retention at which time a Morales catheter was placed which seemed to resolve that catheter will be in place and urology can follow the patient per her calcium levels were on the low side she is on calcium with vitamin supplementation slowly improved she has a history of hyperlipidemia was on statin which had been held paroxysmal atrial fib she has on Eliquis and is doing well with that also consulted all for rate control and she has been stable and her hypothyroid. Patient is extremely weak still and will absolutely [facility] this is being arranged at this time the new discharge meds would be Xanax 0.25 which on a 3 times daily basis prednisone 20 mg to be continued sodium bicarb 650 twice daily sotalol 40 every 12 and sodium chloride 1 a day this will be DC'd once this the sodium levels remain in this normal range. - Time Spent with Patient Total time spent providing and/or coordinating discharge services: Greater than 30 minutes - Quality: VTE Deep Vein Thrombosis/Pulmonary Embolism Present on Admission: No Exam Vital signs: Vital Signs 05/14/18 12:00 05/14/18 15:01 05/14/18 15:35 Temperature 97.1 F L 96.8 F L Pulse Rate 75 77 Respiratory Rate 20 20 20 Blood Pressure 174/79 H 168/74 H Pulse Oximetry 94 L 95 05/14/18 20:00 05/15/18 00:50 05/15/18 04:00 Temperature 97.7 F 97.5 F L Pulse Rate 75 75 74 Respiratory Rate 20 20 Blood Pressure 172/80 H 153/74 H 161/76 H Pulse Oximetry 93 L 95 05/15/18 08:00 Temperature 97.1 F L Pulse Rate 77 Respiratory Rate 18 Blood Pressure 168/82 H Pulse Oximetry 95 Intake & Output 05/14/18 05/15/18 05/15/18 18:59 06:59 18:59 Intake Total 840 / 840 480 / 480 Output Total 1725 / 1725 1200 / 1200 Balance -885 / -885 -720 / -720 Weight 59.6 kg Intake: Oral 840 / 840 480 / 480 Output: Urine 1200 / 1200 Urine Amount (Catheter) 172 / 1725 Indwelling Urethral Catheter 1724 / 1725 Narrative: GENERAL: SKIN: Warm and dry. HEAD: Atraumatic. Normocephalic. EYES: Pupils equal and round. No scleral icterus. No injection or drainage. ENT: No nasal bleeding or discharge. Mucous membranes pink and moist. NECK: Trachea midline. No JVD. CARDIOVASCULAR: Regular rate and rhythm. RESPIRATORY: No accessory muscle use. Clear to auscultation. Breath sounds equal bilaterally. GASTROINTESTINAL: Abdomen soft, non-tender, nondistended. Hepatic and splenic margins not palpable. MUSCULOSKELETAL: Extremities without clubbing, cyanosis, or edema. No obvious deformities. NEUROLOGICAL: Awake and alert. No obvious cranial nerve deficits. Motor grossly within normal limits. Five out of 5 muscle strength in the arms and legs. Normal speech. PSYCHIATRIC: Appropriate mood and affect; insight and judgment normal. Results Procedures completed during hospitalization: morales cath Labs on day of discharge: Labs from last 24 hours 05/15/18 05/15/18 05/08/18 05:20 05:20 05:45 CBC w Diff Auto diff final WBC 12.5 H RBC 3.54 L Hgb 9.7 L Hct 30.3 L MCV 85.7 MCH 27.5 MCHC 32.0 RDW 15.5 Plt Count 412 MPV 8.2 Neut % (Auto) 78.5 H Lymph % (Auto) 11.8 [place] % (Auto) 8.3 H Eos % (Auto) 1.1 Baso % (Auto) 0.3 Neut # (Auto) 9.9 H Lymph # (Auto) 1.5 [place] # (Auto) 1.0 H Eos # (Auto) 0.1 Baso # (Auto) 0.0 WBC Differential . Differential Comment . Sodium 139 Potassium 3.5 Chloride 101 Carbon Dioxide 34.3 H Anion Gap 4 L BUN 17 Creatinine 0.36 L Estimated GFR Greater than 89 Random Glucose 83 Calcium 7.7 L Total Bilirubin 0.7 AST 64 H ALT 90 H Alkaline Phosphatase 166 H C-Reactive Protein 2.60 H Total Protein 4.9 L Albumin 1.6 L BCR/abl (FISH) Interp - Impressions ITS Impressions Abdomen Ultrasound 04/29/18 00:00 CONCLUSION: 1. Unremarkable study. Abdomen/Pelvis CT 04/29/18 00:00 CONCLUSION: Gas bubble inside the bladder may be iatrogenic and of uncertain etiology, otherwise unremarkable. Chest X-Ray 04/29/18 00:00 CONCLUSION: 1. No acute cardiopulmonary disease. Knee X-Ray 05/01/18 00:00 CONCLUSION: Tricompartmental osteoarthritis. There is a small associated joint effusion. No acute fracture identified. Liver Ultrasound 05/12/18 00:00 CONCLUSION: 1. No gallstones. Small amount of fluid around the gallbladder. Left pleural effusion. No significant abnormality in the liver. Normal portal venous flow direction. Discharge Plan - Discharge Disposition Patient Disposition: 61 Rehab Inpatient - Discharge Condition Condition: Good - Discharge Order Discharge Orders: Discharge Order (Routine); Ordered 05/15/18 Ordered By: Ilir Naylor - Discharge Details Anticipated Discharge Date: 05/15/18 Discharge Comment: discharge to [facility] - Physicians Team Primary Care Provider: Tulio De La Paz Attending Provider: Tulio De La Paz Other Providers: Michael Santos MD ; Brittani Mayorga MD ; Ally Canela MD ; Jesse Rich MD ; Omari Soria MD
[2018-05-15] MEDS: ALPRAZolam 0.25 MG Tablet PO PRN (12:20)
[2018-05-15 16:53] VITALS: BP 158/74; PULSE 75; TEMP 97.6; O2SAT 95
[2018-05-15 17:50] LABS: Alk Phos Total Isoenzymes 201 U/L (33-130)
[2018-05-15] MEDS ORDERED: Calcium/Vitamin D 250/125 MG Tablet PO SCH (21:00)
[2018-05-16 23:52] LABS: Alk Phos Bone Isoenzymes 36 % (28-66); Alk Phos Intestine Isoenzymes 2 % (1-24); Alk Phos Liver Isoenzymes 62 % (25-69); Alk Phos MacroHep Isoenzyme ND % (()); Alk Phos Placental Isoenzymes 0 % (0)
== END 2018-05-15 17:25 ==
LOC: PHED 20:45 → PHEDA 20:45 → PHICU 04-29 00:49 → PH3 04-30 18:40
PROVIDERS: ADMIT Family Medicine; ATTEND Family Medicine